=== PATIENT | female | born 1960 | race Caucasian/White ===

== ENCOUNTER → 2016-06-08 | Outpatient (CLI) | payer MEDICARE, OTHER ==
[2016-06-08 09:18] LABS: Basophils % (A) 1 %; CH 30.7; CHCM 30.8; Eosinophils # (A) 0.3 k/uL (0-0.7); Eosinophils % (A) 3 %; HCT 37.8 % (34.0-46.0); HDW 2.79; HGB 11.1 gm/dL (11.4-16.0); Hypochromasia Moderate; Luc # (Auto) 0.23; Luc % (Auto) 3; Lymphocytes # (A) 1.3 k/uL (1.0-4.8); Lymphocytes % (A) 14 %; MCH 29.3 pg (25.0-35.0); MCHC 29.2 g/dL (31.0-37.0); MCV 100.3 fL (80.0-100.0); Macrocytosis Slight; Mean Platelet Volume 8.2; Monocytes # (A) 0.5 k/uL (0-1.0); Monocytes % (A) 5 %; Neutrophils # (A) 6.8 k/uL (1.3-7.7); Neutrophils % (A) 75 %; RBC 3.77 m/uL (3.80-5.40); RDW 14.1 % (11.5-15.5); WBC 9.1 k/uL (3.8-10.6); WBC (Perox) 9.27
[2016-06-08 09:21] LABS: Partial Thromboplastin Time 24.5 sec (22.0-30.0); Prothrombin Time 10.1 sec (9.0-12.0)
--- NOTE | 2016-06-08 09:33 | XR ---
EXAMINATION TYPE: XR chest 2V DATE OF EXAM: 06/08/2016 9:04 AM COMPARISON: 09/03/2013 HISTORY: 56-year-old female presurgical evaluation TECHNIQUE: Frontal and lateral views FINDINGS: The cardiomediastinal silhouette, aorta, and pulmonary vasculature are within normal limits. Lungs an d pleural spaces are clear. IMPRESSION: No acute cardiopulmonary process.
[2016-06-08 09:45] LABS: Calcium 8.5 mg/dL (8.4-10.2); Potassium 5.1 mmol/L (3.5-5.1)
[2016-06-08 09:47] LABS: Appearance,Urine Turbid (Clear); Bacteria,Urine Many /hpf; Bilirubin,Urine Negative (Negative); Glucose,Urine (UA) Negative (Negative); Ketones,Urine Negative (Negative); Leukocyte Esterase,Urine Large (Negative); Mucus,Urine Rare /hpf; Nitrite,Urine Negative (Negative); PH, Urine 5.5 (5.0-8.0); Particle Count 13465; Protein,Urine Trace (Negative); RBC,Urine 6 /hpf (0-5); Specific Gravity,Urine 1.013 (1.001-1.035); Squamous Epithelial Cell,Urine 25 /hpf (0-4); UA Billing (MACRO vs. MICRO) MICRO; Urobilinogen,Urine <2.0 mg/dL (<2.0); WBC,Urine >182 /hpf (0-5)
== END ==
LOC: LABPAT 08:31
PROVIDERS: ATTEND Orthopaedic Surgery Orthopaedic Surgery of the Spine
DX: Z01.818 Encounter for other preprocedural examination (principal); Z01.810 Encounter for preprocedural cardiovascular examination; Z01.812 Encounter for preprocedural laboratory examination
CPT/HCPCS: 71020; 80048; 81001; 85025; 85610; 85730; 86850; 86900; 86901; 87070

== ENCOUNTER 2016-06-17 21:49 | Inpatient (IN) | payer MEDICARE, OTHER ==
[2016-06-17] MEDS ORDERED: ONDANSETRON 4 MG/2 ML VIAL IVP STA (22:16)
[2016-06-17] MEDS ORDERED: DICYCLOMINE 10 MG/ML 2 ML AMP IM STA (22:16)
[2016-06-17] MEDS ORDERED: NICOTINE 21MG/24HR PATCH TRANSDERM STA (22:16)
[2016-06-17] MEDS ORDERED: SODIUM CHLORIDE 0.9% 1,000 ML IV STA ×3 (22:16→23:40)
--- NOTE | 2016-06-17 22:27 | ED ---
Abdominal Pain HPI - General Chief Complaint: Abdominal Pain Stated Complaint: SEIZURE Time Seen by Provider: 06/17/16 21:56 Source: patient, family, EMS Mode of arrival: EMS Limitations: physical limitation - History of Present Illness Initial Comments: The patient is a 56-year-old female who presents to the ED with a chief complaint of abdominal discomfort. Patient states the pain is located in the suprapubic region. Patient also states that there is crampy abdominal pain located throughout the abdomen. Patient notes that she has not had a bowel movement in the past 5-6 days. Patient notes that she's had abdominal bloating. Patient denies any dysuria but states that she has been having increased urinary frequency. Patient states that she had one episode of vomiting yesterday. She denies nausea at this point in time. Patient denies any flank pain. She denies any fevers or chills. She does state that she has felt shaky over the course of the day. She states that her shakiness developed around the same time that she felt abdominal pain. The patient notes that she also quit smoking about 4 days ago. She states she has not had a cigarette since that point in time. Patient states that she has a history of seizure disorder. She states that she's been compliant with all of her medications. Patient states that she takes Keppra for seizures. She states that she has not had any breakthrough seizures for several months. Bill states that she was scheduled to have surgery on her back earlier today but that the surgery was canceled due to the fact the patient has a urinary tract infection. She states that she was started on Levaquin. She's taken one dose of this medications. - Related Data Home Medications Medication Instructions Recorded Confirmed busPIRone HCL [Buspar] 30 mg PO BID 08/23/13 06/17/16 levETIRAcetam [Keppra] 500 mg PO BID 08/23/13 06/17/16 Acetaminophen Tab [Tylenol Tab] 650 mg PO Q6H PRN 06/10/16 06/17/16 Baclofen [Lioresal] 10 mg PO BID PRN 06/10/16 06/17/16 HYDROcodone/APAP 10-325MG [[place] 1 tab PO Q8H PRN 06/10/16 06/17/16 10-325] Lisinopril [Zestril] 20 mg PO DAILY 06/10/16 06/17/16 Pregabalin [Lyrica] 50 mg PO BID PRN 06/10/16 06/17/16 busPIRone HCl [Buspar] 10 mg PO BID 06/10/16 06/17/16 Levofloxacin [Levaquin] 500 mg PO DAILY 06/17/16 06/17/16 Allergies Allergy/AdvReac Type Severity Reaction Status Date / Time Penicillins Allergy Rash/Hives Verified 06/17/16 22:10 Review of Systems ROS Statement: Those systems with pertinent positive or pertinent negative responses have been documented in the HPI. ROS Other: All systems not noted in ROS Statement are negative. Constitutional: Denies: fever, chills, weakness ENT: Denies: throat pain Respiratory: Denies: cough, dyspnea Cardiovascular: Denies: chest pain, palpitations, dyspnea on exertion Endocrine: Denies: fatigue Gastrointestinal: Reports: nausea, vomiting, constipation. Denies: abdominal pain, diarrhea Genitourinary: Reports: frequency. Denies: urgency, dysuria Skin: Denies: rash, lesions, change in color Neurological: Denies: headache, numbness, paresthesias Psychiatric: Denies: anxiety, depression Past Medical History Past Medical History: Hearing Disorder / Deafness, Hypertension, Musculoskeletal Disorder, Neurologic Disorder, Osteoarthritis (OA), Seizure Disorder Additional Past Medical History / Comment(s): seizure disorder diagnosed in April History of Any Multi-Drug Resistant Organisms: None Reported Past Surgical History: Section, Tubal Ligation Past Anesthesia/Blood Transfusion Reactions: No Reported Reaction Past Psychological History: Anxiety, Depression Smoking Status: Current every day smoker Past Alcohol Use History: None Reported Past Drug Use History: Marijuana - Past Family History Mother Family Medical History: No Reported History Additional Family Medical History / Comment(s): . General Exam Limitations: physical limitation Course Vital Signs 06/17/16 06/17/16 06/18/16 22:00 23:27 00:22 Temperature 97.0 F L 96.9 F L 97.4 F L Pulse Rate 78 107 H 69 Respiratory 18 18 18 Rate Blood Pressure 145/65 126/66 139/65 O2 Sat by Pulse 97 99 100 Oximetry 06/18/16 02:02 Temperature 97.7 F Pulse Rate 100 Respiratory 18 Rate Blood Pressure 130/78 O2 Sat by Pulse 100 Oximetry Medical Decision Making - Medical Decision Making The patient is a 56-year-old female who presents to the ED with a chief complaint of abdominal pain. Patient states that the pain is located throughout the abdomen. Patient notes that she has had a decrease in her number of bowel movements. She had one episode of nausea and vomiting last night. Patient does cite increased urinary frequency. She does point to pain in the suprapubic region as well. Check a UA and urine culture. Patient notes that she felt very shaky earlier today. Patient is going through the process of smoking cessation at this point in time. Question whether there may be a component of nicotine withdrawal. Check CBC, BMP, Mag. Bolus patient with IV fluids. Provide patient with Zofran and Bentyl for her symptomatically relief. 2:[address] demonstrates evidence of enlarged left ovary and stranding throughout the omentum suspicious for peritoneal carcinomatosis. Updated patient of findings. Ordered CA 125 level. Patient will require admission for further evaluation and management. - Lab Data Result diagrams: 06/17/16 22:34 06/17/16 22:34 Lab Results 06/17/16 06/17/16 06/17/16 Range/Units 22:13 22:34 22:34 WBC 16.3 H (3.8-10.6) k/uL RBC 3.23 L (3.80-5.40) m/uL Hgb 10.1 L (11.4-16.0) gm/dL Hct 29.4 L (34.0-46.0) % MCV 90.9 D (80.0-100.0) fL MCH 31.3 (25.0-35.0) pg MCHC 34.4 (31.0-37.0) g/dL RDW 13.2 (11.5-15.5) % Plt Count 359 (150-450) k/uL Neutrophils % 90 % Lymphocytes % 4 % Monocytes % 4 % Eosinophils % 0 % Basophils % 0 % Neutrophils # 14.7 H (1.3-7.7) k/uL Lymphocytes # 0.7 L (1.0-4.8) k/uL Monocytes # 0.6 (0-1.0) k/uL Eosinophils # 0.0 (0-0.7) k/uL Basophils # 0.0 (0-0.2) k/uL Sodium 125 L (137-145) mmol/L Potassium 4.7 (3.5-5.1) mmol/L Chloride 92 L (98-107) mmol/L Carbon Dioxide 23 (22-30) mmol/L Anion Gap 10 mmol/L BUN 12 (7-17) mg/dL Creatinine 1.20 H (0.52-1.04) mg/dL Est GFR (MDRD) Af Amer 57 (>60 ml/min/1.73 sqM) Est GFR (MDRD) Non-Af 47 (>60 ml/min/1.73 sqM) Glucose 118 H (74-99) mg/dL Plasma Lactic Acid Nilesh (0.7-2.0) mmol/L Calcium 8.3 L (8.4-10.2) mg/dL Magnesium 1.5 L (1.6-2.3) mg/dL Total Bilirubin 0.4 (0.2-1.3) mg/dL AST 21 (14-36) U/L ALT 22 (9-52) U/L Alkaline Phosphatase 62 (38-126) U/L Total Protein 5.9 L (6.3-8.2) g/dL Albumin 3.1 L (3.5-5.0) g/dL Urine Color Light Yellow Urine Appearance Clear (Clear) Urine pH 5.5 (5.0-8.0) Ur Specific [place] 1.005 (1.001-1.035) Urine Protein Negative (Negative) Urine Glucose (UA) Negative (Negative) Urine Ketones Trace H (Negative) Urine Blood Negative (Negative) Urine Nitrite Negative (Negative) Urine Bilirubin Negative (Negative) Urine Urobilinogen <2.0 (<2.0) mg/dL Ur Leukocyte Esterase Trace H (Negative) Urine RBC <1 (0-5) /hpf Urine WBC 5 (0-5) /hpf Ur Squamous Epith Cells 2 (0-4) /hpf Urine Bacteria Few H (None) /hpf Hyaline Casts 1 (0-2) /lpf 06/17/16 Range/Units 22:34 WBC (3.8-10.6) k/uL RBC (3.80-5.40) m/uL Hgb (11.4-16.0) gm/dL Hct (34.0-46.0) % MCV (80.0-100.0) fL MCH (25.0-35.0) pg MCHC (31.0-37.0) g/dL RDW (11.5-15.5) % Plt Count (150-450) k/uL Neutrophils % % Lymphocytes % % Monocytes % % Eosinophils % % Basophils % % Neutrophils # (1.3-7.7) k/uL Lymphocytes # (1.0-4.8) k/uL Monocytes # (0-1.0) k/uL Eosinophils # (0-0.7) k/uL Basophils # (0-0.2) k/uL Sodium (137-145) mmol/L Potassium (3.5-5.1) mmol/L Chloride (98-107) mmol/L Carbon Dioxide (22-30) mmol/L Anion Gap mmol/L BUN (7-17) mg/dL Creatinine (0.52-1.04) mg/dL Est GFR (MDRD) Af Amer (>60 ml/min/1.73 sqM) Est GFR (MDRD) Non-Af (>60 ml/min/1.73 sqM) Glucose (74-99) mg/dL Plasma Lactic Acid Nilesh 2.7 H* (0.7-2.0) mmol/L Calcium (8.4-10.2) mg/dL Magnesium (1.6-2.3) mg/dL Total Bilirubin (0.2-1.3) mg/dL AST (14-36) U/L ALT (9-52) U/L Alkaline Phosphatase (38-126) U/L Total Protein (6.3-8.2) g/dL Albumin (3.5-5.0) g/dL Urine Color Urine Appearance (Clear) Urine pH (5.0-8.0) Ur Specific [place] (1.001-1.035) Urine Protein (Negative) Urine Glucose (UA) (Negative) Urine Ketones (Negative) Urine Blood (Negative) Urine Nitrite (Negative) Urine Bilirubin (Negative) Urine Urobilinogen (<2.0) mg/dL Ur Leukocyte Esterase (Negative) Urine RBC (0-5) /hpf Urine WBC (0-5) /hpf Ur Squamous Epith Cells (0-4) /hpf Urine Bacteria (None) /hpf Hyaline Casts (0-2) /lpf Disposition Clinical Impression: Ovarian mass, left, Peritoneal carcinomatosis, Lactic acidosis Disposition: ADMITTED IP TO THIS [facility] Decision to Admit Reason: Admit from EC Decision Date: 06/18/16 Decision Time: 02:17
[2016-06-17 23:01] LABS: Basophils % (A) 0 %; CH 31.1; CHCM 34.3; Eosinophils % (A) 0 %; HCT 29.4 % (34.0-46.0); HDW 3.08; HGB 10.1 gm/dL (11.4-16.0); Luc # (Auto) 0.27; Luc % (Auto) 2; Lymphocytes # (A) 0.7 k/uL (1.0-4.8); Lymphocytes % (A) 4 %; MCH 31.3 pg (25.0-35.0); MCHC 34.4 g/dL (31.0-37.0); Mean Platelet Volume 7.6; Monocytes # (A) 0.6 k/uL (0-1.0); Monocytes % (A) 4 %; Neutrophils # (A) 14.7 k/uL (1.3-7.7); Neutrophils % (A) 90 %; RBC 3.23 m/uL (3.80-5.40); RDW 13.2 % (11.5-15.5); WBC 16.3 k/uL (3.8-10.6); WBC (Perox) 16.15
[2016-06-17 23:09] LABS: Appearance,Urine Clear (Clear); Bacteria,Urine Few /hpf; Bilirubin,Urine Negative (Negative); Glucose,Urine (UA) Negative (Negative); Ketones,Urine Trace (Negative); Leukocyte Esterase,Urine Trace (Negative); Nitrite,Urine Negative (Negative); PH, Urine 5.5 (5.0-8.0); Particle Count 1750; Protein,Urine Negative (Negative); RBC,Urine <1 /hpf (0-5); Specific Gravity,Urine 1.005 (1.001-1.035); Squamous Epithelial Cell,Urine 2 /hpf (0-4); UA Billing (MACRO vs. MICRO) MICRO; Urobilinogen,Urine <2.0 mg/dL (<2.0); WBC,Urine 5 /hpf (0-5)
[2016-06-17 23:13] LABS: MCV 90.9 fL (80.0-100.0)
--- NOTE | 2016-06-17 23:14 | XR ---
EXAMINATION TYPE: XR abdomen acute w cxr DATE OF EXAM: 06/17/2016 11:05 PM COMPARISON: NONE HISTORY: Abdominal pain TECHNIQUE: 4 views FINDINGS: Lungs are clear. Heart and mediastinum are normal. Diaphragm is normal. Bowel gas pattern is normal. There is no sign of intestinal obstruction or pneumoperitoneum. There is no sign of a mass. There is a 2 mm calcification over the left kidney on one view. IMPRESSION: Nonacute abdomen. Normal chest.
[2016-06-17 23:17] LABS: Calcium 8.3 mg/dL (8.4-10.2); Magnesium 1.5 mg/dL (1.6-2.3); Potassium 4.7 mmol/L (3.5-5.1); Total Bilirubin 0.4 mg/dL (0.2-1.3); Total Protein 5.9 g/dL (6.3-8.2)
[2016-06-17] MEDS ORDERED: IOHEXOL 350 MG/ML 25 ML BOTTLE (ORAL USE) PO PRN (23:43)
[2016-06-17] MEDS ORDERED: RX INFO: IV CONTRAST WAS GIVEN 1 EACH MISC MISCELLANE PRN (23:43)
[2016-06-18] MEDS: MAGNESIUM SULFATE-D5W PMX 1 GM in DEXTROSE/WATER 1 100ML.BAG IVPB SCH ×2 (00:15→01:53)
[2016-06-18] MEDS ORDERED: MORPHINE SULFATE 4 MG/ML SYRINGE IVP STA (00:31)
--- NOTE | 2016-06-18 02:08 | CT ---
EXAM: CT Abdomen and Pelvis With Intravenous Contrast. CLINICAL HISTORY: Reason: Abdominal pain TECHNIQUE: Axial computed tomography images of the abdomen and pelvis with intravenous contrast. CTDI is 12.6 mGy and DLP is 594.7 mGy-cm This CT exam was performed using one or more of the following dose reduction techniques: automated exposure control, adjustment of the mA and/or kV according to patient size, and/or use of iterative reconstruction technique. COMPARISON: No relevant prior studies available. FINDINGS: Lower thorax: No acute findings. ABDOMEN: Liver: Unremarkable. No mass. Gallbladder and bile ducts: 19 mm peripherally calcified gallstone. No apparent gallbladder wall thickening. No ductal dilation. Pancreas: Unremarkable. No ductal dilation. No mass. Spleen: Unremarkable. No splenomegaly. Adrenals: Unremarkable. No mass. Kidneys and ureters: Atrophic left kidney. No evidence of obstructive uropathy. PELVIS: Bladder: Unremarkable. No mass. Reproductive: Indeterminate well-circumscribed mass within the left ovary measuring 4.2 x 3.8 cm in size. Appendix: No findings to suggest acute appendicitis. ABDOMEN + PELVIS: Stomach and bowel: Unremarkable. No obstruction. No mucosal thickening. Peritoneum: Small to moderate volume ascites. Moderate soft tissue stranding is seen within the greater omentum. No free air. Lymph nodes: Unremarkable. No enlarged lymph nodes. Vasculature: Unremarkable. No aortic aneurysm. Bones: No acute fracture. IMPRESSION: 1. Small to moderate volume ascites. Moderate soft tissue stranding of the greater omentum is worrisome for underlying peritoneal carcinomatosis. 2. Cholelithiasis, without definitive findings of acute cholecystitis. 3. Atrophic left kidney. 4. Indeterminate 4.2 x 3.8 cm well-circumscribed left ovarian mass. This can be further characterized with dedicated pelvic ultrasound.
[2016-06-18] MEDS ORDERED: NALOXONE 0.4 MG/ML 1 ML VIAL IV PRN (02:18)
[2016-06-18] MEDS ORDERED: HYDROcodone/APAP 5-325MG 1 EACH TAB PO PRN (02:18)
[2016-06-18] MEDS ORDERED: ONDANSETRON 4 MG/2 ML VIAL IVP PRN (02:18)
[2016-06-18] MEDS: MORPHINE SULFATE 4 MG/ML SYRINGE IV PRN ×3 (03:01→11:10)
[2016-06-18] MEDS: ALPRAZolam 0.25 MG TAB PO SCH ×2 (08:46→12:48)
[2016-06-18] MEDS ORDERED: PREGABALIN 50 MG CAP PO PRN (09:10)
[2016-06-18] MEDS ORDERED: busPIRone HCl 10 MG TAB PO SCH ×2 (09:15)
[2016-06-18] MEDS: LISINOPRIL 20 MG TAB PO SCH (10:05)
[2016-06-18] MEDS: levETIRAcetam 500 MG TAB PO SCH ×2 (10:05→19:54)
[2016-06-18] MEDS: LORazepam 2 MG/ML SYRINGE IV PRN ×2 (14:50→18:43)
[2016-06-18] MEDS ORDERED: TEMAZEPAM 15 MG CAP PO PRN (15:44)
[2016-06-18] MEDS ORDERED: BACLOFEN 10 MG TAB PO PRN (15:45)
--- NOTE | 2016-06-18 16:21 | XR ---
EXAMINATION TYPE: XR chest 1V DATE OF EXAM: 06/18/2016 4:11 PM COMPARISON: 06/08/2016 HISTORY: 56-year-old female with shortness of breath, evaluate for CHF TECHNIQUE: Single frontal view of the chest is obtained. FINDINGS: Heart is normal size. Aorta and pulmonary vasculature within normal limits. Some opacity is at the lo wer lungs have a strandy appearance suggesting atelectasis. No consolidation or pleural effusion. IMPRESSION: Some strandy areas of atelectasis in the lower lungs. Otherwise, no acute process seen.
--- NOTE | 2016-06-18 19:31 | CT ---
EXAMINATION TYPE: CT brain wo con DATE OF EXAM: 06/18/2016 7:25 PM COMPARISON: 08/23/2013 HISTORY: R/O mets. CT DLP: 1001.3 mGycm Automated exposure control for dose reduction was used. FINDINGS: There is mild cerebral atrophy. There is no mass effect nor midline shift. There is no sign of intrac ranial hemorrhage. I see no sign of cerebral edema. The calvarium is intact. IMPRESSION: Mild atrophy. No acute intracranial abnormality. No evidence of focal edema to suggest metastatic dis ease. No significant change compared to old exam.
--- NOTE | 2016-06-18 19:35 | CT ---
EXAMINATION TYPE: CT chest wo con DATE OF EXAM: 06/18/2016 7:25 PM COMPARISON: NONE HISTORY: R/O mets. CT DLP: 299.4 mGycm Automated exposure control for dose reduction was used. FINDINGS: There is a small linear density in the lingula left upper lobe. There is no evidence of a pulmonary m ass. There is no pleural effusion. There are no hilar masses. There is no sign of mediastinal adenopa thy. There is no pericardial effusion. There is ascites fluid noted in the abdomen. I see no bony luz tructive process. IMPRESSION: MINIMAL SUBSEGMENTAL ATELECTASIS IN THE [place]A LEFT UPPER LOBE. NO EVIDENCE OF THORACIC METASTATIC D ISEASE. ASCITES.
[2016-06-18] MEDS: HYDROmorphone 1 MG/ML 1 ML SYRINGE IVP PRN ×2 (19:44→22:37)
--- NOTE | 2016-06-18 19:48 | HP ---
DATE OF ADMISSION: 06/18/2016 CHIEF COMPLAINT: Abdominal pain. HISTORY OF PRESENT ILLNESS: This 56-year-old woman with a past medical history of hypertension, history of DJD, history of renal disease, history of seizure disorder, history of anxiety, depression, being followed by Dr. Vilchis in the outpatient setting, was apparently slated to have back surgery by Dr. Figueredo for severe DJD. Yesterday the patient had evidence of UTI. Surgery was cancelled, and subsequently patient had severe pain in the suprapubic area and also was complaining of abdominal bloating. Patient has some nausea. She had multiple symptomatology. Patient has some shaking also. Because of multiple symptomatology, the patient came to [facility] and was admitted for further evaluation and treatment. There is no history of any fever, no history of headache, loss of consciousness, seizures. In the ER the patient was found to have evidence of plasma lactic acid, and her sodium level was 125. CA125 antigen was 1440. Patient also had an abdomen and pelvis CT scan in the ER which showed small to moderate volume ascites and moderate soft tissue stranding of the greater omentum, worrisome for underlying peritoneal carcinomatosis and cholelithiasis as well as indeterminate 4.2 x 3.8 cm well-circumscribed left ovarian mass. The patient is admitted for further evaluation and treatment. There is no history of any trauma. PAST MEDICAL HISTORY: 1. History of hypertension, essential. 2. History of renal disease. 3. History of seizure disorder. 4. History of anxiety, depression. 5. History of section. MEDICATIONS PRIOR TO ADMISSION: 1. Keppra 500 mg p.o. b.i.d. 2. BuSpar 10 mg p.o. b.i.d. 3. BuSpar 30 mg p.o. b.i.d. 4. Lyrica 50 mg p.o. b.i.d. p.r.n. 5. Zestril 20 mg p.o. daily. 6. Levaquin 500 mg p.o. daily. 7. Hydrocodone [place] 10 mg q.8 p.r.n. 8. Lioresal 10 mg b.i.d. p.r.n. 9. Tylenol 650 p.o. q.6 p.r.n. ALLERGIES: PENICILLIN. FAMILY HISTORY: No history of heart disease or strokes in the family. SOCIAL HISTORY: Previous history of smoking. No current smoking or alcohol intake. REVIEW OF SYSTEMS: ENT: No diminishing hearing. No diminished vision. CARDIOVASCULAR SYSTEM: No angina, palpitations. RESPIRATORY SYSTEM: As mentioned earlier. GI: As mentioned earlier. : No dysuria. NERVOUS SYSTEM: No numbness, weakness. ALLERGY/IMMUNOLOGY: No asthma, hayfever. MUSCULOSKELETAL: As mentioned earlier. HEMATOLOGY/ONCOLOGY: As mentioned earlier. ENDOCRINE: As mentioned earlier. CONSTITUTIONAL: As mentioned earlier. PSYCHIATRY: Panic attacks. PHYSICAL EXAMINATION: Patient is alert and oriented x3. Pulse 110, blood pressure 146/99, respiration 22, temperature 98.1, pulse ox 98% on room air. HEENT: Conjunctivae normal. NECK: No jugular venous distention. CARDIOVASCULAR SYSTEM: S1, S2 muffled. RESPIRATORY SYSTEM: Breath sounds diminished at the bases. Scattered rhonchi. No crackles. ABDOMEN: Soft. Mild diffuse distention and ascites present. No guarding. No rigidity. Tenderness in the lower part of the abdomen. Bowel sounds present. LEGS: No edema. No swelling. NERVOUS SYSTEM: Higher functions as mentioned earlier. Moves all 4 limbs. No focal motor or sensory deficit. LYMPHATICS: No lymph node palpable in neck, axillae or groin. SKIN: No ulcer, rash, bleeding. LABS: WBC 16.2, hemoglobin 10.1. Sodium 125, potassium 4.7. Plasma lactic acid 2.7. CA125 is 1440. ASSESSMENT: 1. Abdominal pain, ascites, as well as possible left ovarian mass with peritoneal carcinomatosis. 2. Acute lactic acidosis, present on admission, possibly secondary to dehydration. 3. Urinary tract infection. 4. Lactic acid 2.7. 5. CA125 antigen 1440. 6. Hyponatremia. 7. Anemia, normocytic; anemia of chronic disease. 8. Increased white count. 9. History of hypertension, essential. 10. History of hearing defects. 11. History of renal disease. 12. History of degenerative joint disease. 13. History of seizure disorder. 14. degenerative joint disease of the back. 15. Anxiety, depression not otherwise specified. 16. Remote history of nicotine dependence. RECOMMENDATIONS AND DISCUSSION: In this 56-year-old woman who presented with multiple complex medical issues, we will monitor the patient closely, continue the current medication, continue symptomatic treatment. I recommend initiating broad-spectrum IV antibiotics. Continue the IV hydration. Otherwise, symptomatic treatment for the pain. Ativan for panic attacks. Discussed with Hematology/Oncology. Also recommend abdominal aspiration of ascitic fluid, therapeutic and diagnostic, with further studies with Interventional Radiology. Overall prognosis is extremely guarded because of multiple complex medical issues. Further recommendations to follow. Discussed with the patient. I also recommend a surgical evaluation. MTDD
[2016-06-18] MEDS: busPIRone HCl 10 MG TAB PO SCH (19:55)
[2016-06-19] MEDS: ALPRAZolam 0.25 MG TAB PO SCH ×3 (00:05→15:26)
[2016-06-19] MEDS: HYDROmorphone 1 MG/ML 1 ML SYRINGE IVP PRN ×6 (02:52→22:00)
[2016-06-19] MEDS: HYDROcodone/APAP 10-325MG 1 EACH TAB PO PRN (04:09)
[2016-06-19 07:28] LABS: Basophils % (A) 0 %; CHCM 31.8; Eosinophils # (A) 0.1 k/uL (0-0.7); Eosinophils % (A) 0 %; HCT 31.4 % (34.0-46.0); HDW 2.94; HGB 9.9 gm/dL (11.4-16.0); Hypochromasia Slight; Luc # (Auto) 0.23; Luc % (Auto) 2; Lymphocytes # (A) 0.9 k/uL (1.0-4.8); Lymphocytes % (A) 8 %; MCH 29.9 pg (25.0-35.0); MCHC 31.6 g/dL (31.0-37.0); MCV 94.7 fL (80.0-100.0); Mean Platelet Volume 7.4; Monocytes # (A) 0.5 k/uL (0-1.0); Monocytes % (A) 4 %; Neutrophils # (A) 10.4 k/uL (1.3-7.7); Neutrophils % (A) 86 %; RBC 3.32 m/uL (3.80-5.40); RDW 13.6 % (11.5-15.5); WBC 12.1 k/uL (3.8-10.6)
[2016-06-19 07:34] LABS: INR 1.1 (<1.1); Prothrombin Time 10.7 sec (9.0-12.0)
[2016-06-19 07:43] LABS: Calcium 8.4 mg/dL (8.4-10.2); Magnesium 2.3 mg/dL (1.6-2.3); Phosphorous 4.1 mg/dL (2.5-4.5); Total Bilirubin 0.4 mg/dL (0.2-1.3); Total Protein 5.6 g/dL (6.3-8.2)
[2016-06-19] MEDS: PANTOPRAZOLE 40 MG TABLET PO SCH (08:38)
[2016-06-19] MEDS: LISINOPRIL 20 MG TAB PO SCH (08:38)
[2016-06-19] MEDS: busPIRone HCl 10 MG TAB PO SCH ×2 (08:39→21:27)
[2016-06-19] MEDS: levETIRAcetam 500 MG TAB PO SCH ×2 (08:39→21:28)
[2016-06-19 13:12] VITALS: BMI 27.2
--- NOTE | 2016-06-19 17:16 | US ---
EXAMINATION TYPE: US paracentesis abd w/image DATE OF EXAM: 06/19/2016 4:51 PM COMPARISON: NONE HISTORY: Ascites. PROCEDURE: Maximal barrier technique was utilized. The skin overlying a suitable pocket of fluid was localized with ultrasound and the overlying skin was prepped and draped. Ultrasound was utilized with sterile technique. Lidocaine was used for local anesthesia and a skin joana made with a scalpel. Catheter was advanced under direct ultrasound guidance into a suitable pocket of fluid and approximately 2 liters of serous fluid were removed. Catheter was withdrawn and hemostasis achieved. There is no immediate complication; the patient is discharged in stable condition. IMPRESSION: STATUS POST ULTRASOUND GUIDED PARACENTESIS FOR PALLIATION OF ASCITES. THIS PROCEDURE WA S PERFORMED BY THE UNDERSIGNED. Specimen obtained for laboratory analysis.
--- NOTE | 2016-06-19 17:54 | P.CONS ---
History of Present Illness - Reason for Consult Consult date: 06/19/16 Ascites and pelvic mass - History of Present Illness The patient is a 56-year-old lady, who is been having complains of abdominal distention with progressive discomfort over the last couple of weeks. She had not had a bowel movement in the last 5-6 days. Over the 24 hours prior to her presentation here, she had been complaining of chills though no definite fevers. It appears that she may have had a diagnosis of UTI. Due to the progression of the abdominal symptoms, as well as the additional symptoms noted above, she came into the emergency room. She also complained of some nausea though no evident vomiting. CT of the abdomen and pelvis revealed evidence of ascites, with soft tissue stranding of the greater omentum, suspicious for peritoneal carcinomatosis. In addition there was a 4.23.8 cm well- circumscribed left pelvic mass noted. The patient was therefore admitted for further management. Consult was placed for oncology evaluation and recommendations The patient states that she had surgery after , about 20 years ago and " they took everything out". On further questioning, however, she was unable to state if ovaries had been left in or not Review of Systems Constitutional: Reports fatigue, Reports poor appetite, Reports weakness, Reports weight loss Eyes: denies blurred vision, denies pain Ears: deny: decreased hearing, ear discharge, earache, tinnitus Ears, nose, mouth and throat: Denies headache, Denies sore throat Cardiovascular: Reports decreased exercise tolerance Respiratory: Reports dyspnea Gastrointestinal: Reports as per HPI, Reports abdominal pain, Reports bloating, Reports constipation, Reports nausea Genitourinary: Denies dysuria, Denies hematuria Menstruation: Reports postmenopausal Musculoskeletal: Denies myalgias Integumentary: Denies pruritus, Denies rash Neurological: Reports tremors Psychiatric: Reports anxiety Endocrine: Reports fatigue, Reports weight change Hematologic/Lymphatic: Reports as per HPI Past Medical History Past Medical History: Eye Disorder, Hearing Disorder / Deafness, Hypertension, Osteoarthritis (OA), Renal Disease, Seizure Disorder Additional Past Medical History / Comment(s): Last seizure summer 2015 per pt, current UTI on ABX, chronic low back pain (was supposed to have sx today but cancelled d/t UTI), generalized arthritis, renal insufficiency, chronic anemia, glaucoma bilaterally with surgery, [place] bilaterally. History of Any Multi-Drug Resistant Organisms: None Reported Past Surgical History: Section, Tonsillectomy, Tubal Ligation Additional Past Surgical History / Comment(s): Buttock abcess with surgery, lasek eye surgery bilaterally for glaucoma. Past Anesthesia/Blood Transfusion Reactions: No Reported Reaction Past Psychological History: Anxiety, Depression Additional Psychological History / Comment(s): Pt has severe anxiety. She resides with her significant other and her 16yr old daughter. She has a cane and a walker. She no longer drives, her s.o. takes her to [employer]. She attended special education while in school. She can read and write, minimally. Smoking Status: Former smoker Past Alcohol Use History: None Reported Additional Past Alcohol Use History / Comment(s): Pt started smoking in 1976 and states she quit 4 days ago. Past Drug Use History: Marijuana Additional Drug Use History / Comment(s): Occasional marijuana use. - Past Family History Father Family Medical History: CVA/TIA, Diabetes Mellitus, Hypertension Additional Family Medical History / Comment(s): Father at the age of 65yrs. Mother Family Medical History: No Reported History Additional Family Medical History / Comment(s): . Medications and Allergies Home Medications Medication Instructions Recorded Confirmed Type busPIRone HCL [Buspar] 30 mg PO BID 08/23/13 06/18/16 History levETIRAcetam [Keppra] 500 mg PO BID 08/23/13 06/18/16 History Acetaminophen Tab [Tylenol Tab] 650 mg PO Q6H PRN 06/10/16 06/18/16 History Baclofen [Lioresal] 10 mg PO BID PRN 06/10/16 06/18/16 History HYDROcodone/APAP 10-325MG [[place] 1 tab PO Q8H PRN 06/10/16 06/18/16 History 10-325] Lisinopril [Zestril] 20 mg PO DAILY 06/10/16 06/18/16 History Pregabalin [Lyrica] 50 mg PO BID PRN 06/10/16 06/18/16 History busPIRone HCl [Buspar] 10 mg PO BID 06/10/16 06/18/16 History Levofloxacin [Levaquin] 500 mg PO DAILY 06/17/16 06/18/16 History Allergies Allergy/AdvReac Type Severity Reaction Status Date / Time Penicillins Allergy Rash/Hives Verified 06/18/16 10:47 Physical Exam Vitals: Vital Signs Temp Pulse Resp BP Pulse Ox 06/19/16 17:20 96 18 135/74 99 06/19/16 17:05 97.1 F L 88 19 119/64 99 06/19/16 16:31 86 16 105/63 96 06/19/16 15:57 86 18 112/63 96 06/19/16 15:45 97.8 F 80 19 97 06/19/16 11:00 98.8 F 79 20 86/36 100 06/19/16 08:01 93 20 133/77 98 06/19/16 08:00 98.5 F 06/19/16 00:00 97.7 F 74 18 127/69 97 06/18/16 20:00 98.3 F 112 H 20 156/97 95 Intake and Output 06/19/16 06/19/16 06/19/16 06:59 14:59 22:59 Intake Total 750 Output Total 3 Balance 750 -3 Intake: Intake, IV Titration 750 Amount Sodium Chloride 0.9% 1, 750 000 ml @ 100 mls/hr IV . Q10H STA Rx#:[id number] Output: Urine 3 Other: # Voids 1 # Bowel Movements 1 2 Weight 61.235 kg Patient Weight 06/20/16 06:59 Weight 61.235 kg - Constitutional General appearance: mild distress (Very anxious and shaky) - EENT Eyes: EOMI ENT: hard of hearing, normal oropharynx - Neck Neck: no lymphadenopathy Thyroid: bilateral: normal size - Respiratory Respiratory: bilateral: CTA - Cardiovascular Rhythm: regular Heart sounds: normal: S1, S2 - Gastrointestinal Exam is positive for free fluid General gastrointestinal: decreased bowel sounds, distended - Integumentary Integumentary: normal - Neurologic Neurologic: CNII-XII intact - Musculoskeletal Musculoskeletal: generalized weakness, strength equal bilaterally - Psychiatric Psychiatric: A&O x's 3, appropriate affect Results CBC & Chem 7: 06/19/16 06:28 06/19/16 06:28 Labs: Abnormal Lab Results - Last 24 Hours (Table) 06/19/16 06/19/16 Range/Units 06:28 06:28 WBC 12.1 H (3.8-10.6) k/uL RBC 3.32 L (3.80-5.40) m/uL Hgb 9.9 L (11.4-16.0) gm/dL Hct 31.4 L (34.0-46.0) % Neutrophils # 10.4 H (1.3-7.7) k/uL Lymphocytes # 0.9 L (1.0-4.8) k/uL Chloride 111 H (98-107) mmol/L Carbon Dioxide 19 L (22-30) mmol/L Creatinine 1.15 H (0.52-1.04) mg/dL Total Protein 5.6 L (6.3-8.2) g/dL Albumin 2.8 L (3.5-5.0) g/dL CT scan - abdomen: report reviewed, image reviewed CT scan - chest: report reviewed CT Scan - head: report reviewed CT scan - pelvis: report reviewed, image reviewed Assessment and Plan (1) Peritoneal carcinomatosis Narrative/Plan: The clinical picture, is very suspicious for malignant ascites with peritoneal carcinomatosis. CA-125 is markedly elevated at 1440. This is most suspicious for an ovarian primary, although other primaries with metastasis to the peritoneum cannot be ruled out The above clinical impression was discussed in detail with the patient and her . A paracentesis is being planned. It was discussed with the patient that this is recommended, for therapeutic and diagnostic purposes. Appropriate the labs, including cytology were ordered on the ascites fluid. We will await those results. Computed tomography scan of the chest has already been performed, showing no evidence of metastasis. Status: Acute (2) Ovarian mass, left Narrative/Plan: This is presumed to be an ovarian mass, and in the current context, is the main differential for the primary site. As noted in the HPI, the patient did give a history of INSURANCE LAW SPECIALIST surgery, that is not clear if ovaries were removed. We will await results of the cytology. As noted, a CT chest is negative for metastasis. CT of the abdomen and pelvis does not show any evidence of visceral metastasis . Therefore, if the patient is found to have ovarian malignancy on sciatic fluid cytology, she would be treated with curative intent , with the radical surgery and chemotherapy. In that case, INSURANCE LAW SPECIALIST oncology referral will be arranged Status: Acute (3) Anemia Narrative/Plan: Given the clinical picture, anemia due to malignancy is a primary differential. I will check workup for deficiency states. Hemoglobin is in a safe range. Status: Acute
[2016-06-19 18:45] LABS: % Iron Saturation 12.1 % (20-50)
--- NOTE | 2016-06-19 18:46 | P.OBCN ---
History of Present Illness Consult date: 06/19/16 Reason for consult: pelvic pain Chief complaint: Pelvic pain, ovarian mass, ascites History of present illness: This patient is a 56-year-old 4 para 1 female who is admitted through the emergency department approximately 2 days ago with complaints of pelvic pain. Patient is a very poor historian, but states that she's been having lower abdominal pain for several months. She states that she's had constipation and had multiple tests done for this. Patient's associate financial representative is Dr. Paz however has not seen him in approximately 3 years. Patient was seen Dr. Vilchis and she is unsure of what type of evaluation she's had prior to this admission. Evaluation here included a CAT scan which showed ascites with a 4.2 cm left ovarian mass and probable peritoneal carcinomatosis. Patient also had a CA-125 done which was 1440. Paracentesis for 2 L of fluid was done earlier today and those results are pending. Review of Systems Gastrointestinal: Reports constipation Genitourinary: Reports pelvic pain Past Medical History Past Medical History: Eye Disorder, Hearing Disorder / Deafness, Hypertension, Osteoarthritis (OA), Renal Disease, Seizure Disorder Additional Past Medical History / Comment(s): Last seizure summer 2015 per pt, current UTI on ABX, chronic low back pain (was supposed to have sx today but cancelled d/t UTI), generalized arthritis, renal insufficiency, chronic anemia, glaucoma bilaterally with surgery, [place] bilaterally. Gynecologic history is significant for section and laparoscopy in the past with lysis of adhesions and cystectomy. Last Pap smear was per Dr. Rossi in January 2012 and was normal. History of Any Multi-Drug Resistant Organisms: None Reported Past Surgical History: Section, Tonsillectomy, Tubal Ligation Additional Past Surgical History / Comment(s): Buttock abcess with surgery, lasek eye surgery bilaterally for glaucoma. Past Anesthesia/Blood Transfusion Reactions: No Reported Reaction Past Psychological History: Anxiety, Depression Additional Psychological History / Comment(s): Pt has severe anxiety. She resides with her significant other and her 16yr old daughter. She has a cane and a walker. She no longer drives, her s.o. takes her to appts. She attended special education while in school. She can read and write, minimally. Smoking Status: Former smoker Past Alcohol Use History: None Reported Additional Past Alcohol Use History / Comment(s): Pt started smoking in 1976 and states she quit 4 days ago. Past Drug Use History: Marijuana Additional Drug Use History / Comment(s): Occasional marijuana use. - Past Family History Father Family Medical History: CVA/TIA, Diabetes Mellitus, Hypertension Additional Family Medical History / Comment(s): Father at the age of 65yrs. Mother Family Medical History: No Reported History Additional Family Medical History / Comment(s): . Medications and Allergies Home Medications Medication Instructions Recorded Confirmed Type busPIRone HCL [Buspar] 30 mg PO BID 08/23/13 06/18/16 History levETIRAcetam [Keppra] 500 mg PO BID 08/23/13 06/18/16 History Acetaminophen Tab [Tylenol Tab] 650 mg PO Q6H PRN 06/10/16 06/18/16 History Baclofen [Lioresal] 10 mg PO BID PRN 06/10/16 06/18/16 History HYDROcodone/APAP 10-325MG [[place] 1 tab PO Q8H PRN 06/10/16 06/18/16 History 10-325] Lisinopril [Zestril] 20 mg PO DAILY 06/10/16 06/18/16 History Pregabalin [Lyrica] 50 mg PO BID PRN 06/10/16 06/18/16 History busPIRone HCl [Buspar] 10 mg PO BID 06/10/16 06/18/16 History Levofloxacin [Levaquin] 500 mg PO DAILY 06/17/16 06/18/16 History Allergies Allergy/AdvReac Type Severity Reaction Status Date / Time Penicillins Allergy Rash/Hives Verified 06/18/16 10:47 Exam - Vital Signs Vital signs: Vital Signs Temp Pulse Resp BP Pulse Ox 06/19/16 17:35 96 18 126/55 99 06/19/16 17:20 96 18 135/74 99 06/19/16 17:05 97.1 F L 88 19 119/64 99 06/19/16 16:31 86 16 105/63 96 06/19/16 15:57 86 18 112/63 96 06/19/16 15:45 97.8 F 80 19 97 06/19/16 11:00 98.8 F 79 20 86/36 100 06/19/16 08:01 93 20 133/77 98 06/19/16 08:00 98.5 F 06/19/16 00:00 97.7 F 74 18 127/69 97 06/18/16 20:00 98.3 F 112 H 20 156/97 95 Intake and Output 06/19/16 06/19/16 06/19/16 06:59 14:59 22:59 Intake Total 750 Output Total 3 Balance 750 -3 Intake: Intake, IV Titration 750 Amount Sodium Chloride 0.9% 1, 750 000 ml @ 100 mls/hr IV . Q10H STA Rx#:[id number] Output: Urine 3 Other: # Voids 1 # Bowel Movements 1 2 Weight 61.235 kg Patient Weight 06/20/16 06:59 Weight 61.235 kg Results Result Diagrams: 06/19/16 06:28 06/19/16 06:28 Abnormal Lab Results - Last 24 Hours (Table) 06/19/16 06/19/16 Range/Units 06:28 06:28 WBC 12.1 H (3.8-10.6) k/uL RBC 3.32 L (3.80-5.40) m/uL Hgb 9.9 L (11.4-16.0) gm/dL Hct 31.4 L (34.0-46.0) % Neutrophils # 10.4 H (1.3-7.7) k/uL Lymphocytes # 0.9 L (1.0-4.8) k/uL Chloride 111 H (98-107) mmol/L Carbon Dioxide 19 L (22-30) mmol/L Creatinine 1.15 H (0.52-1.04) mg/dL Total Protein 5.6 L (6.3-8.2) g/dL Albumin 2.8 L (3.5-5.0) g/dL Assessment and Plan (1) Pelvic pain Narrative/Plan: This is a 56-year-old 4 para 1 female with several month history of pelvic pain, evaluation thus far has revealed a ovarian mass, large ascites and what appears to be peritoneal carcinomatosis. This most likely is suspicious for an epithelial ovarian cancer. Current recommendations are to proceed with evaluation and treatment by CHORE TENDER oncologist. My recommendations are to transfer this patient to a CHORE TENDER oncology facility for surgical staging and further treatment. Status: Acute (2) Ovarian mass Status: Acute
--- NOTE | 2016-06-19 19:36 | PN ---
DATE OF SERVICE: 06/19/2016 This 56-year-old woman was admitted with abdominal distention as well as pain and ascites as well as suspected to have left ovarian mass. The patient also had cholelithiasis and without any definite evidence of cholecystitis. The patient also had atrophic left kidney. The patient is being closely monitored. Ascitic tap is being planned by [facility]. PAST MEDICAL HISTORY: Reviewed. REVIEW OF SYSTEMS: CARDIOVASCULAR: No angina or palpitations. RESPIRATORY: As mentioned earlier. GI: As mentioned earlier. : As mentioned earlier. Current medications are reviewed and include: 1. [place] 10 mg q.8 p.r.n. 2. Xanax 0.5 q.8. 3. Lioresal 10 mg b.i.d. p.r.n. 4. BuSpar 40 mg b.i.d. 5. Rocephin 1 g daily. 6. Dilaudid. 7. Keppra 500 mg. 8. Zestril. 9. Ativan. 10. Narcan. 11. Zofran. 12. Protonix. 13. Lyrica. PHYSICAL EXAM: Patient alert and oriented x3. Pulse 86, blood pressure 112/96, respirations 18, temperature 97.8, pulse ox 96% on room air. HEENT: Conjunctivae normal. NECK: No jugular venous distension. CARDIOVASCULAR: S1 and S2 muffled. RESPIRATORY: Breath sounds diminished in the bases. A few scattered rhonchi and crackles. ABDOMEN: Soft, obese. Ascites present. LEGS: No edema. NERVOUS SYSTEM: No focal deficits. LABS: WBC 12.0, hemoglobin is 9.9. Sodium 138, potassium 5. Albumin is 2.8. ASSESSMENT: 1. Abdominal pain, ascites, as well as possible left ovarian mass with ovarian malignancy with possible peritoneal carcinomatosis. 2. Acute lactic acidosis, present on admission, possibly secondary to dehydration. 3. Urinary tract infection. 4. Lactic acid 2.7% on admission. 5. CA-125 antigen at 1440. 6. Hyponatremia. 7. Anxiety, depression and panic attacks. 8. Anemia, normocytic; anemia of chronic disease. 9. Increased WBC. 10. Hypertension, essential. 11. History of hearing defects. 12. History of renal disease. 13. History degenerative joint disease. 14. Seizure disorder. 15. Remote history of nicotine dependence. 16. FULL CODE. RECOMMENDATIONS AND DISCUSSION: In this 56-year-old woman who presented with multiple complex medical issues, will monitor the patient closely, continue with the current medications. Continue with symptomatic treatment. Otherwise, at this time recommend Interventional Radiology consultation, ascitic fluid aspiration, fluid for studies including culture, albumin, cytology. Otherwise, MANAGER DIGITAL evaluation with Dr. Jc. Otherwise, prognosis is guarded because of multiple complex medical issues. See orders for further details. Repeat labs will be done. Further recommendations to follow. Lactic acid has normalized. Discussed with the patient, who understands and agrees.
[2016-06-19] MEDS: DOCUSATE 100 MG CAP PO SCH (21:26)
[2016-06-20] MEDS: ALPRAZolam 0.25 MG TAB PO SCH ×3 (01:27→15:34)
[2016-06-20] MEDS: HYDROmorphone 1 MG/ML 1 ML SYRINGE IVP PRN ×4 (01:28→14:41)
[2016-06-20 05:55] LABS: Basophils % (A) 0 %; CH 30.4; CHCM 32.2; Eosinophils # (A) 0.1 k/uL (0-0.7); Eosinophils % (A) 1 %; HCT 30.4 % (34.0-46.0); HDW 3.05; Hypochromasia Slight; Luc # (Auto) 0.27; Luc % (Auto) 3; Lymphocytes % (A) 9 %; MCH 31.3 pg (25.0-35.0); MCHC 33.1 g/dL (31.0-37.0); MCV 94.7 fL (80.0-100.0); Mean Platelet Volume 7.3; Monocytes # (A) 0.6 k/uL (0-1.0); Monocytes % (A) 5 %; Neutrophils # (A) 8.9 k/uL (1.3-7.7); Neutrophils % (A) 83 %; RBC 3.21 m/uL (3.80-5.40); RDW 13.5 % (11.5-15.5); WBC 10.8 k/uL (3.8-10.6); WBC (Perox) 10.65
[2016-06-20 06:10] LABS: Calcium 7.9 mg/dL (8.4-10.2); Potassium 4.7 mmol/L (3.5-5.1)
[2016-06-20 06:33] LABS: Reticulocyte % 1.9 % (0.5-2.0)
[2016-06-20] MEDS: SODIUM CHLORIDE 0.9% 1,000 ML IV SCH (07:00)
[2016-06-20] MEDS: HYDROcodone/APAP 10-325MG 1 EACH TAB PO PRN ×2 (07:21→19:24)
[2016-06-20] MEDS: PANTOPRAZOLE 40 MG TABLET PO SCH (07:21)
[2016-06-20] MEDS: busPIRone HCl 10 MG TAB PO SCH ×2 (08:50→21:02)
[2016-06-20] MEDS: DOCUSATE 100 MG CAP PO SCH ×2 (08:52→21:06)
[2016-06-20] MEDS: levETIRAcetam 500 MG TAB PO SCH ×2 (08:54→21:02)
[2016-06-20] MEDS: LISINOPRIL 20 MG TAB PO SCH (08:54)
[2016-06-20 13:02] LABS: LDH, Body Fluid Source Peritoneal Fluid; T. Protein, Body Fluid Source Peritoneal Fluid; Total Protein, Body Fluid 4000 mg/dL
[2016-06-20 13:54] LABS: Phosphorous 3.8 mg/dL (2.5-4.5)
[2016-06-20 14:02] LABS: Calcium 8.1 mg/dL (8.4-10.2); Potassium 4.6 mmol/L (3.5-5.1); Total Bilirubin 0.3 mg/dL (0.2-1.3); Total Protein 5.6 g/dL (6.3-8.2)
[2016-06-20 14:02] LABS: % Iron Saturation 9.9 % (20-50)
[2016-06-20] MEDS: SERTRALINE 25 MG TAB PO SCH (17:30)
[2016-06-21] MEDS: ALPRAZolam 0.25 MG TAB PO SCH ×3 (02:02→16:06)
[2016-06-21] MEDS: SODIUM CHLORIDE 0.9% 1,000 ML IV SCH ×2 (05:18→18:39)
[2016-06-21] MEDS: HYDROcodone/APAP 10-325MG 1 EACH TAB PO PRN ×4 (05:23→18:30)
[2016-06-21] MEDS: PANTOPRAZOLE 40 MG TABLET PO SCH (07:16)
[2016-06-21 08:05] LABS: Magnesium 1.9 mg/dL (1.6-2.3); Phosphorous 4.1 mg/dL (2.5-4.5)
--- NOTE | 2016-06-21 08:46 | PN ---
DATE OF SERVICE: 06/20/2016 This 56-year-old woman who was admitted with abdominal pain as well as ascites also had possibly ovarian carcinoma with metastasis also. The patient had peritoneal carcinomas. The patient underwent ascitic tap with 2 liters of fluid taken out. The findings are pending at this time. CA125 is elevated. HAND CARVER, Dr. Benitez, has seen the patient and epithelial ovarian cancer was suspected. HAND CARVER Oncology referral was also recommended. The patient has significant anxiety and panic episodes also. PAST MEDICAL HISTORY: Reviewed. REVIEW OF SYSTEMS: CARDIOVASCULAR: No angina. RESPIRATORY: As mentioned. GI: As mentioned earlier. : No dysuria. NERVOUS SYSTEM: No numbness or weakness. Current medications are reviewed and include: 1. [place] 10 mg q.8 p.r.n. 2. Xanax. 3. Lioresal. 4. ( ) 40 mg p.o. b.i.d. 5. [place]ace 100 mg p.o. b.i.d. 6. Dilaudid. 7. Keppra. 8. Zestril. 9. Ativan. 10. Zofran. 11. Protonix. 12. Lyrica. 13. Restoril. PHYSICAL EXAMINATION: Patient is alert and oriented x3. Pulse 96, blood pressure 125/67, respirations 20, temperature 97 degrees, pulse ox 99% on room air. HEENT: Conjunctivae normal. NECK: No jugular venous distention. CARDIOVASCULAR: S1 and S2, muffled. RESPIRATORY: Breath sounds diminished at the bases. A few scattered rhonchi. ABDOMEN: Soft. Still significant distention and ascites also present, but much less compared to before the abdominal tap. Bowel sounds present. No guarding, no rigidity. No mass palpable. LEGS: No edema, no swelling. NERVOUS SYSTEM: Higher function as mentioned. Moves all four limbs. No focal motor deficits. LYMPHATIC: No lymphadenopathy in the neck, axillae or groin. SKIN: No ulcer, rash or bleeding. LABS: WBC 10, hemoglobin 10, otherwise iron studies are noted. Peritoneal fluid is total protein 4. ASSESSMENT: 1. Abdominal pain, ascites, as well as left ovarian mass with possible ovarian malignancy with peritoneal carcinomatosis, status post ultrasound-guided abdominal paracentesis with 2 liters of fluid with exudative ascites. 2. Acute lactic acidosis, present on admission, possibly secondary to dehydration. 3. Urinary tract infection, present on admission. 4. Lactic acidosis, 2.7 on admission. 5. CA125 level 1440. 6. Hyponatremia. 7. Anxiety, depression, and panic attacks. 8. Anemia, normocytic anemia of chronic disease. 9. Increased WBC. 10. Hypertension, essential. 11. History of hearing defect. 12. History of renal disease. 13. History of degenerative joint disease. 14. History of seizure disorder. 15. Remote history of nicotine dependence. 16. FULL CODE. RECOMMENDATIONS AND DISCUSSION: I recommend to continue the current medications, continue monitoring and symptomatic treatment. Otherwise at this time I recommend to continue with current medications and continue with antibiotics. Closely follow with multiple consultants. Guarded prognosis because of multiple complex medical issues. I had a detailed discussion with the family and patient at bedside, await biopsy report. Closely follow with multiple consultants including Oncology as mentioned earlier, HAND CARVER Oncology referral also will be made once the diagnosis confirmed. For now, prognosis guarded. Continue antibiotics. Repeat labs will be ordered. Further recommendations to follow. Address panic attacks and anxiety as well.
[2016-06-21] MEDS: busPIRone HCl 10 MG TAB PO SCH ×2 (09:15→21:08)
[2016-06-21] MEDS: levETIRAcetam 500 MG TAB PO SCH ×2 (09:16→21:08)
[2016-06-21] MEDS: SERTRALINE 25 MG TAB PO SCH (09:16)
[2016-06-21] MEDS: LISINOPRIL 20 MG TAB PO SCH (09:16)
[2016-06-21] MEDS: DOCUSATE 100 MG CAP PO SCH ×2 (09:27→21:08)
[2016-06-21 11:56] LABS: % Iron Saturation 5.4 % (20-50)
[2016-06-21 12:35] LABS: Basophils # (A) 0.1 k/uL (0-0.2); Basophils % (A) 0 %; CH 29.9; CHCM 30.9; Eosinophils # (A) 0.1 k/uL (0-0.7); Eosinophils % (A) 1 %; HCT 31.2 % (34.0-46.0); HDW 2.88; HGB 9.8 gm/dL (11.4-16.0); Hypochromasia Moderate; Luc # (Auto) 0.19; Luc % (Auto) 2; Lymphocytes # (A) 0.8 k/uL (1.0-4.8); Lymphocytes % (A) 7 %; MCH 30.7 pg (25.0-35.0); MCHC 31.5 g/dL (31.0-37.0); MCV 97.4 fL (80.0-100.0); Mean Platelet Volume 8.4; Monocytes # (A) 0.7 k/uL (0-1.0); Monocytes % (A) 5 %; Neutrophils # (A) 10.4 k/uL (1.3-7.7); Neutrophils % (A) 86 %; RBC 3.21 m/uL (3.80-5.40); RDW 13.8 % (11.5-15.5); WBC 12.2 k/uL (3.8-10.6); WBC (Perox) 11.78
[2016-06-21 12:46] LABS: Calcium 7.8 mg/dL (8.4-10.2); Potassium 4.6 mmol/L (3.5-5.1)
--- NOTE | 2016-06-21 18:25 | US ---
EXAMINATION TYPE: US venous doppler duplex LE LT DATE OF EXAM: 06/21/2016 5:51 PM COMPARISON: NONE CLINICAL HISTORY: left calf pain. Pain left leg SIDE PERFORMED: Left TECHNIQUE: The lower extremity deep venous system is examined utilizing real time linear array sonog alek with graded compression, doppler sonography and color-flow sonography. VESSELS IMAGED: External Iliac Vein (single frontal view of the chest) Common Femoral Vein Deep Femoral Vein Greater Saphenous Vein * Femoral Vein Popliteal Vein Small Saphenous Vein * Proximal Calf Veins (* superficial vessels) Left Leg: No evidence of DVT IMPRESSION: Grayscale, color doppler, spectral doppler imaging performed of the deep veins of the lo wer extremities. There is normal flow, compressibility, vascular waveforms bilaterally. No evidence of deep venous thrombosis in the veins evaluated in the left lower extremity
--- NOTE | 2016-06-21 18:42 | PN ---
DATE OF SERVICE: 06/21/2016 This 56-year-old woman was admitted with abdominal pain and ascites, being closely monitored. The patient ovarian malignancy . No chest pain. No palpitations. No fever. The patient has significant anxiety and panic episodes also. On exam, alert and oriented times three. Pulse 92, blood pressure 159/74, respiratory rate 16, temperature 97.9, pulse ox 99% on room air. HEENT: Conjunctivae normal. NECK: No jugular venous distention. CARDIOVASCULAR: S1, S2 muffled. RESPIRATORY: Breath sounds diminished at the bases. No rhonchi, no crackles. ABDOMEN: Soft, obese. Ascites present. No guarding. No rigidity. No mass palpable. Minimal diffuse tenderness in the lower part. LEGS: No edema. No swelling. CENTRAL NERVOUS SYSTEM: Higher functions as mentioned earlier. Moves all four limbs. No focal deficits. LYMPHATICS: No lymph nodes palpable in the neck, axillae or groin. SKIN: No ulcer, rash or bleeding. LABS: WBC 12.9, hemoglobin 9.8 and creatinine is 1.7. Otherwise iron is 11, B12 18. ASSESSMENT: 1. Abdominal pain, ascites, status post left ovarian mass with possible ovarian malignancy with peritoneal carcinomatosis, status post ultrasound-guided abdominal paracentesis with 2 liters fluid with exudative ascites. 2. Acute lactic acidosis, present on admission, possibly secondary to dehydration. 3. Urinary tract infection, present on admission. 4. Lactic acidosis 2.71 on admission. 5. CA125 1440. 6. Hyponatremia. 7. Anxiety, depression, panic attacks, not otherwise specified. 8. Anemia, normocytic anemia of chronic disease. 9. Increased WBC. 10. Hypertension, essential. 11. History hearing defects. 12. History of renal disease. 13. History of degenerative joint disease. 14. History of seizure disorder. 15. Remote history of nicotine dependence. 16. FULL CODE. RECOMMENDATIONS AND DISCUSSION: Recommended to continue symptomatic treatment. Otherwise, at this time I would recommend to continue current medications, including IV antibiotics. Await final biopsy report. MEAT PRODUCTS DEMONSTRATOR input appreciated. Further recommendations to follow. Guarded prognosis. MTDD
[2016-06-22] MEDS: ALPRAZolam 0.25 MG TAB PO SCH ×3 (00:33→17:31)
[2016-06-22] MEDS: HYDROcodone/APAP 10-325MG 1 EACH TAB PO PRN ×3 (05:19→15:10)
[2016-06-22] MEDS: PANTOPRAZOLE 40 MG TABLET PO SCH (06:36)
[2016-06-22 07:15] LABS: Basophils % (A) 0 %; CH 30.2; CHCM 31.9; Eosinophils # (A) 0.1 k/uL (0-0.7); Eosinophils % (A) 1 %; HCT 31.4 % (34.0-46.0); HDW 2.98; HGB 9.8 gm/dL (11.4-16.0); Hypochromasia Slight; Luc % (Auto) 2; Lymphocytes # (A) 0.7 k/uL (1.0-4.8); Lymphocytes % (A) 7 %; MCH 29.7 pg (25.0-35.0); MCHC 31.1 g/dL (31.0-37.0); MCV 95.3 fL (80.0-100.0); Mean Platelet Volume 7.2; Monocytes # (A) 0.5 k/uL (0-1.0); Monocytes % (A) 5 %; Neutrophils # (A) 9.1 k/uL (1.3-7.7); Neutrophils % (A) 85 %; RBC 3.29 m/uL (3.80-5.40); RDW 13.8 % (11.5-15.5); WBC 10.7 k/uL (3.8-10.6); WBC (Perox) 10.63
[2016-06-22 07:33] LABS: Anion Gap 8 mmol/L; Blood Urea Nitrogen 5 mg/dL (7-17); Calcium 7.9 mg/dL (8.4-10.2); Carbon Dioxide 22 mmol/L (22-30); Chloride 111 mmol/L (98-107); Glucose 92 mg/dL (74-99); Non-African American GFR(MDRD) 51 (>60 ml/min/1.73 sqM); Phosphorous 4.1 mg/dL (2.5-4.5); Potassium 4.5 mmol/L (3.5-5.1); Sodium 141 mmol/L (137-145)
[2016-06-22] MEDS: SERTRALINE 25 MG TAB PO SCH (09:12)
[2016-06-22] MEDS: LISINOPRIL 20 MG TAB PO SCH (09:13)
[2016-06-22] MEDS: busPIRone HCl 10 MG TAB PO SCH ×2 (09:13→21:21)
[2016-06-22] MEDS: DOCUSATE 100 MG CAP PO SCH ×2 (09:13→21:21)
[2016-06-22] MEDS: levETIRAcetam 500 MG TAB PO SCH ×2 (09:13→21:20)
[2016-06-22] MEDS: SODIUM CHLORIDE 0.9% 1,000 ML IV SCH ×2 (11:57→21:25)
--- NOTE | 2016-06-22 13:40 | P.CN ---
Psychiatric Consult - . Consult date: 06/22/16 Consult:: IDENTIFYING DATA: Mr. Chaudhari is a 56-year-old female admitted to medicine service with increasing suprapubic pain. A computed tomography scan in the ER showed mild to moderate ascites and moderate soft tissue stranding of the greater omentum suggestive of underlying peritoneal carcinomatosis. 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 Chest and brain CT showed no evidence of metastases. Medicine consulted psychiatry for evaluation of anxiety. HISTORY OF PRESENT ILLNESS: I reviewed the medical record and interviewed Ms. Wilson. She complained of feeling anxious and initially would not proceed with the interview without her present. She called her and I explained that her physician consulted me to evaluate her anxiety. With his assurance she agreed to proceed with the interview. She talked about feeling anxious and how the severity of the anxiety fluctuates in intensity. At times it became so severe she had difficulty "thinking". The severe anxiety may sometimes last for hours. She also described intermittent feelings of hopelessness, helplessness and worthlessness. She has intermittent thoughts of suicide but denied intent or plan. She assured me that she would never consider suicide because she has a 16-year-old daughter. Other has depressive symptoms include sadness, pessimism, loss of pleasure, crying, loss of interest , worthlessness, loss of energy, concentration difficulty and tiredness or fatigue. She denied psychotic symptoms such as auditory or visual hallucinations, ideas reference, thought insertion, thought broadcasting or thought control. She denied use of alcohol or drugs with the exception of "occasional" marijuana. She denied areas of elevated mood or sustained irritability consistent with livia or hypomania. PAST PSYCHIATRIC HISTORY: She talked about meeting with a "counselor" several years ago. She denied psychiatric hospitalizations. SUBSTANCE USE HISTORY: She does not drink. She smokes marijuana occasionally. She denied use of other drugs. She denied substance abuse treatment.. FAMILY PSYCHIATRIC/SUBSTANCE USE HISTORY: She was unaware of family history of mental health or substance use problems.. SOCIAL HISTORY: She is born in [place]. Her parents when she was young. She lives with her mother until she was placed in foster care at age 15. She became withdrawn when asked her why she had been placed in foster care. She talked about "nobody believing me and thought that I was lying." She left foster care at age 20. She remarried 3 times. She has 1 child age 16. She her current for 4 years. MENTAL STATUS EXAM: She presented as a female with disheveled appearing 56-year- old female who was pleasant on approach. She anxious and apprehensive about the interview. She maintained eye contact. She appeared to have difficulty attending and concentrating on the interview. She had no distinguishing features or prominent physical abnormalities. She had a distressed facial expression. She was alert and oriented to person, place and time. She showed no abnormality of psychomotor activity. I did not evaluate her gait. His speech was nonspontaneous and had decreased rate, rhythm and volume. Her affect was depressed and anxious. She describes suicidal ideation and wishes without intent or plan. She denied homicidal ideation. She expressed depressive cognitions including hopelessness, helplessness and worthlessness. She ruminated about her illness. She denied ideas of reference, paranoid ideation and did not express delusional thoughts or beliefs. Her thinking was concrete but her associations were coherent and logical. She denied hallucinations and did not appear to be responding to internal stimuli He completed the [facility] Orientation Memory and Concentration test. Her total weighted error score was 12; a total weighted error score greater than 10 is consistent with dementia. She knew the month and year. She is able to register the memory phrase "Marek Bernabe, [address] [place] [address]." She did not estimate time correctly within 1 hour actual time. She was able to count backwards from 20 but she was unable to name the months of the year backwards ( beginning with January). She recalled 3 elements of memory phrase. IMPRESSIONS: She is a 56-year-old woman admitted to medicine service with increased suprapubic pain. 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 She has symptoms of moderate to severe anxiety and symptoms of depression. She has suicidal thoughts without intent or plan. There is no evidence of psychosis. Not certain if her performance on mental status testing is a result of a cognitive impairment because she had marked difficulty with concentration and attention. Recommend beginning antidepressant and antipsychotic such as olanzapine for the treatment of depression and anxiety. PLAN: Begin olanzapine 2.5 mg by mouth twice a day and an increase the sertraline to 50 mg daily. Taper and eventually discontinue BuSpar. Will follow. 06/22/16 12:22
[2016-06-22] MEDS: OLANZapine 2.5 MG TAB PO SCH ×2 (15:01→21:21)
--- NOTE | 2016-06-22 15:29 | PN ---
DATE OF SERVICE: 06/22/2016 This is a 56-year-old woman who was admitted with abdominal pain and ascites, had suspected ovarian carcinoma, no chest pain or palpitation. No fever. Patient also had significant anxiety and panic attacks also. On exam, alert and oriented x3. Pulse 90, blood pressure 140/86, respirations 18, temperature is 97.4, pulse ox 96% on room air. HEENT: Conjunctivae normal. NECK: No jugular venous distension. CARDIOVASCULAR SYSTEM: S1, S2, muffled. RESPIRATORY: Breath sounds diminished at the bases, a few scattered rhonchi, no crackles. ABDOMEN: Soft, nontender. LEGS: No edema, no swelling. NERVOUS SYSTEM: No focal deficits. LABS: WBC is 10.7, hemoglobin is 9.8, INR 1.11. ASSESSMENT: 1. Abdominal pain, ascites, possibly with left ovarian mass with possible ovarian malignancy with peritoneal carcinoma, status post ultrasound-guided abdominal paracentesis with 2 L of fluid with exudative ascites, final cytology pending. 2. Acute lactic acidosis present on admission, possibly secondary to dehydration . 3. Urinary tract infection, present on admission on IV antibiotics. 4. Lactic acidosis 2.7 on admission. 5. CA-125 is 1440. 6. Hyponatremia. 7. Anxiety, depression, panic attacks, not otherwise specified. 8. Anemia, normocytic anemia of chronic disease. 9. Increased WBC. 10. Hypertension, essential. 11. History of hearing defect. 12. History of renal disease. 13. History of degenerative joint disease. 14. History of seizure disorder. 15. Remote history of nicotine dependence. 16. FULL CODE. RECOMMENDATION: Recommend to continue the current medications. Continue with the monitoring and symptomatic treatment. Otherwise, at this time I would recommend continue with the current medications. Psychiatry . Will discuss with Dr. Jc for the further plan of action. Await biopsies, continue with symptomatic treatment and IV antibiotics. Further recommendations to follow. Olanzapine 2.5 mg has been added to the current regimen. MTDD
[2016-06-22] MEDS ORDERED: CYANOCOBALAMIN 1,000 MCG/ML 1 ML VIAL IM ONE (15:30)
--- NOTE | 2016-06-22 22:59 | P.PN ---
Subjective The pt feels much better post paracentesis. She has been able to move her bowels. No f/c/n/v/ Objective - Vital Signs Vital signs: Vital Signs Temp 98.1 F 06/22/16 21:26 Pulse 89 06/22/16 21:26 Resp 18 06/22/16 21:26 BP 133/61 06/22/16 21:26 Pulse Ox 94 L 06/22/16 21:26 Intake & Output 06/22/16 06/22/16 06/23/16 06:59 18:59 06:59 Output Total 601 Balance -601 Output: Urine 600 Stool 1 Other: # Voids 1 2 # Bowel Movements 1 - Constitutional General appearance: Present: no acute distress - EENT Eyes: Present: EOMI, PERRLA ENT: Present: hearing grossly normal, normal oropharynx - Respiratory Respiratory: bilateral: CTA - Cardiovascular Rhythm: regular Heart sounds: normal: S1, S2 - Gastrointestinal General gastrointestinal: Present: distended, normal bowel sounds, soft - Integumentary Integumentary: Present: normal - Musculoskeletal Musculoskeletal: Present: strength equal bilaterally - Psychiatric Psychiatric Comment(s): anxiety Psychiatric: Present: A&O x's 3 - Labs CBC & Chem 7: 06/22/16 06:35 06/22/16 06:35 Labs: Abnormal Lab Results - Last 24 Hours (Table) 06/22/16 06/22/16 Range/Units 06:35 06:35 WBC 10.7 H (3.8-10.6) k/uL RBC 3.29 L (3.80-5.40) m/uL Hgb 9.8 L (11.4-16.0) gm/dL Hct 31.4 L (34.0-46.0) % Plt Count 459 H (150-450) k/uL Neutrophils # 9.1 H (1.3-7.7) k/uL Lymphocytes # 0.7 L (1.0-4.8) k/uL Chloride 111 H (98-107) mmol/L BUN 5 L (7-17) mg/dL Creatinine 1.11 H (0.52-1.04) mg/dL Calcium 7.9 L (8.4-10.2) mg/dL Microbiology - Last 24 Hours (Table) 04/21/17 16:25 Gram Stain - Preliminary Peritoneal Fluid Body Fluid Culture - Preliminary 06/22/16 09:30 Stool Culture - Preliminary Stool 06/19/16 16:25 Anaerobic Culture - Preliminary Peritoneal Fluid Assessment and Plan (1) Peritoneal carcinomatosis Narrative/Plan: Cytology is still pending. CT chest was negative. It was again d/w the pt and her that an ovarian primary is the primary differential. without pathologic diagnosis, other primaries cannot be ruled out. - If cytology confirms a termite technician primary, the std of care would be referral to [facility]. For ovarian primary , with Ct chest negative, and no evidence of visceral mets on Ct AP. the std of care would be radical surgery + [place] [place] based chemo. [facility] would decide if the chemo would be given adjuvantly or pre op. - THe pt and her family would like to go to the [facility]. If appropriate, referral will be made by the office as an outpt. - Case d/w IM - While referral is pending, we can continue paracentesis prn Status: Acute (2) Ovarian mass, left Status: Acute (3) Anemia Narrative/Plan: Labs indicate B12 deficiency. B12 injections were started. Based on iron studies, iron deficiency cannot be ruled out Status: Acute
[2016-06-23] MEDS: ALPRAZolam 0.25 MG TAB PO SCH ×2 (00:14→08:52)
[2016-06-23] MEDS: HYDROcodone/APAP 10-325MG 1 EACH TAB PO PRN ×3 (00:14→10:33)
[2016-06-23 00:21] VITALS: TEMP 98.2
[2016-06-23] MEDS: busPIRone HCl 10 MG TAB PO SCH (08:52)
[2016-06-23] MEDS: DOCUSATE 100 MG CAP PO SCH (08:53)
[2016-06-23] MEDS: OLANZapine 2.5 MG TAB PO SCH (08:53)
[2016-06-23] MEDS: levETIRAcetam 500 MG TAB PO SCH (08:53)
[2016-06-23] MEDS: PANTOPRAZOLE 40 MG TABLET PO SCH (08:53)
[2016-06-23 08:57] VITALS: BP 152/81; PULSE 87; RESP 16
[2016-06-23] MEDS ORDERED: SERTRALINE 50 MG TAB PO SCH (09:00)
[2016-06-23] MEDS: LISINOPRIL 20 MG TAB PO SCH (09:03)
[2016-06-23] MEDS ORDERED: CYANOCOBALAMIN 1,000 MCG/ML 1 ML VIAL IM SCH (10:00)
[2016-06-23] MEDS: SODIUM CHLORIDE 0.9% 1,000 ML IV SCH (10:39)
[2016-06-23] MEDS ORDERED: FOLIC ACID 1 MG TAB PO SCH (12:00)
--- NOTE | 2016-06-23 17:08 | DS ---
DATE OF ADMISSION: 06/18/2016 DATE OF DISCHARGE: 06/23/2016 FINAL DIAGNOSES: 1. Abdominal pain, ascites; possible left ovarian mass with possible ovarian malignancy with peritoneal carcinomatosis, status post ultrasound-guided abdominal paracentesis for 2 liters of fluid, exudative ascites; final cytology pending. 2. Acute lactic acidosis, present on admission, possibly secondary to dehydration. 3. Urinary tract infection, present on admission, with IV antibiotics. 4. Lactic acidosis, 2.7 on admission. 5. CA125 of 1440. 6. Hyponatremia. 7. Anxiety, depression, panic attacks not otherwise specified. 8. Anemia, normocytic; anemia of chronic disease. 9. Increased white count. 10. Hypertension, essential. 11. History of hearing defects. 12. History of renal disease. 13. History of degenerative joint disease. 14. History of seizure disorder. 15. Remote history of nicotine dependence. L 16. FULL CODE. DISCHARGE DISPOSITION: The patient will be discharged in stable condition with guarded prognosis. Discharge cleared by multiple consultants. HISTORY OF PRESENT ILLNESS: This 56-year-old woman with a past medical history of multiple medical problems, being followed by Dr. Vilchis in the outpatient setting, was admitted with abdominal pain, ascites as well as left ovarian mass; left ovarian malignancy was suspected. The patient was treated in conjunction with Hematology/Oncology. Ascitic fluid aspiration was done. The final biopsy report is pending at this time. The patient also has significant anxiety and panic episodes. Psychiatry also saw the patient. There was no evidence of DVT in the lower legs. The chest and brain CTs were also unremarkable. On exam, vitals are stable. CARDIOVASCULAR: S1, S2 muffled. ABDOMEN: Soft. Minimal diffuse discomfort. No guarding. No rigidity. No mass palpable. Minimal ascites. NERVOUS SYSTEM: No focal deficit. DISCHARGE ADVICE AND MEDICATIONS: 1. Diet is cardiac. 2. Activity limited until followup. 3. Follow up with Dr. Vilchis in 2 to 3 days. 4. Follow up with Dr. Jc as advised. 5. Tylenol 650 q.6 p.r.n. 6. Lioresal 10 mg b.i.d. p.r.n. 7. Colace 100 mg p.o. b.i.d. 8. Hydrocodone 10 mg q.8 p.r.n. 9. Levaquin 500 mg p.o. daily for 5 days. 10. Zestril 20 mg p.o. daily. 11. Zyprexa 2.5 mg p.o. b.i.d. 12. Lyrica 50 mg p.o. b.i.d. p.r.n. 13. Zoloft 50 mg p.o. daily. 14. BuSpar 30 mg p.o. b.i.d. 15. BuSpar 10 mg p.o. b.i.d. 16. Keppra 500 mg p.o. b.i.d. Once again, the patient will be discharged in stable condition with guarded prognosis.
== END 2016-06-23 12:42 | disposition home or self-care (01) | DRG 375 ==
LOC: EC 21:49 → 5MS5E 06-18 02:21 → 6PED 06-18 06:51
PROVIDERS: ADMIT Hospitalist; ATTEND Hospitalist
PROC: 0W9G3ZX Drainage of Peritoneal Cavity, Percutaneous Approach, Diagnostic (ICD-10-PCS; principal; 2016-06-19)
DX: C78.6 Secondary malignant neoplasm of retroperitoneum and peritoneum (principal); E87.2 Acidosis; R18.0 Malignant ascites; F03.90 Unspecified dementia, unspecified severity, without behavioral disturbance, psychotic disturbance, mood disturbance, and anxiety; R45.851 Suicidal ideations; C56.2 Malignant neoplasm of left ovary; I10 Essential (primary) hypertension; E86.0 Dehydration; E87.1 Hypo-osmolality and hyponatremia; N39.0 Urinary tract infection, site not specified; D63.0 Anemia in neoplastic disease; F32.9 Major depressive disorder, single episode, unspecified; G40.909 Epilepsy, unspecified, not intractable, without status epilepticus; F41.0 Panic disorder [episodic paroxysmal anxiety]; K59.00 Constipation, unspecified; G89.29 Other chronic pain; R35.0 Frequency of micturition; N27.0 Small kidney, unilateral; M47.9 Spondylosis, unspecified; M54.5 Low back pain; R11.2 Nausea with vomiting, unspecified; E53.8 Deficiency of other specified B group vitamins; F17.210 Nicotine dependence, cigarettes, uncomplicated; D72.829 Elevated white blood cell count, unspecified; N28.9 Disorder of kidney and ureter, unspecified; H91.93 Unspecified hearing loss, bilateral; H91.90 Unspecified hearing loss, unspecified ear; R68.83 Chills (without fever); F12.90 Cannabis use, unspecified, uncomplicated; R53.1 Weakness; K80.20 Calculus of gallbladder without cholecystitis without obstruction; Z88.0 Allergy status to penicillin; Z87.42 Personal history of other diseases of the female genital tract; Z86.19 Personal history of other infectious and parasitic diseases; Z82.49 Family history of ischemic heart disease and other diseases of the circulatory system; Z83.3 Family history of diabetes mellitus; Z79.899 Other long term (current) drug therapy; Z86.69 Personal history of other diseases of the nervous system and sense organs; Z79.891 Long term (current) use of opiate analgesic; F41.9 Anxiety disorder, unspecified; Z98.51 Tubal ligation status; Z82.3 Family history of stroke; Z78.0 Asymptomatic menopausal state; Z71.3 Dietary counseling and surveillance
CPT/HCPCS: 36415; 49083; 70450; 71010; 71250; 74022; 74177; 80048; 80053; 81001; 82042; 82272; 82607; 82728; 82747; 83540; 83550; 83605; 83615; 83735; 83921; 84100; 84157; 85025; 85045; 85610; 86304; 87040; 87045; 87046; 87070; 87075; 87086; 87205; 88108; 88305; 88341; 88342; 96361; 96365; 96366; 96372; 96375; 96376; 99285

== ENCOUNTER 2016-06-26 20:49 | Emergency (ER) | payer MEDICARE, OTHER ==
[2016-06-26 21:02] VITALS: RESP 18; TEMP 97.4
[2016-06-26] MEDS ORDERED: SODIUM CHLORIDE 0.9% 1,000 ML IV STA (21:12)
--- NOTE | 2016-06-26 21:17 | ED ---
Abdominal Pain HPI - General Chief Complaint: Abdominal Pain Stated Complaint: abd pain Time Seen by Provider: 06/26/16 21:00 Source: patient, RN notes reviewed Mode of arrival: EMS Limitations: no limitations - History of Present Illness Initial Comments: 46-year-old female presents to the emergency department with a chief complaint of lower abdominal pain and constipation. Patient states she was diagnosed with ovarian cancer last week. Patient states at that time she was shaking like having tremors and she had abdominal pain. Patient states that about one week and having similar like symptoms today. Family states that they were concerned so they thought that they should be evaluated.Patient denies any recent fever, chills, shortness of breath, chest pain, back pain, nausea vomiting, numbness or tingling, dysuria or hematuria, constipation or diarrhea, headaches or visual changes, or any other current symptoms. - Related Data Home Medications Medication Instructions Recorded Confirmed busPIRone HCL [Buspar] 30 mg PO BID 08/23/13 06/26/16 levETIRAcetam [Keppra] 500 mg PO BID 08/23/13 06/26/16 Acetaminophen Tab [Tylenol] 650 mg PO Q6H PRN 06/10/16 06/26/16 HYDROcodone/APAP 10-325MG [Brackney 0.5 tab PO BID PRN 06/10/16 06/26/16 10-325] Pregabalin [Lyrica] 50 mg PO BID PRN 06/10/16 06/26/16 busPIRone HCl [Buspar] 10 mg PO BID PRN 06/10/16 06/26/16 Previous Rx's Medication Instructions Recorded Docusate [Colace] 100 mg PO BID #60 cap 06/23/16 Levofloxacin [Levaquin] 500 mg PO DAILY #5 tablet 06/23/16 Sertraline [Zoloft] 50 mg PO DAILY #30 tab 06/23/16 Allergies Allergy/AdvReac Type Severity Reaction Status Date / Time Penicillins Allergy Rash/Hives Verified 06/26/16 21:39 Review of Systems ROS Statement: Those systems with pertinent positive or pertinent negative responses have been documented in the HPI. ROS Other: All systems not noted in ROS Statement are negative. Past Medical History Past Medical History: Eye Disorder, Hearing Disorder / Deafness, Hypertension, Osteoarthritis (OA), Renal Disease, Seizure Disorder Additional Past Medical History / Comment(s): Last seizure summer 2015 per pt, current UTI on ABX, chronic low back pain (was supposed to have sx today but cancelled d/t UTI), generalized arthritis, renal insufficiency, chronic anemia, glaucoma bilaterally with surgery, CROW bilaterally. Gynecologic history is significant for section and laparoscopy in the past with lysis of adhesions and cystectomy. Last Pap smear was per Dr. Rossi in January 2012 and was normal. History of Any Multi-Drug Resistant Organisms: None Reported Past Surgical History: Section, Tonsillectomy, Tubal Ligation Additional Past Surgical History / Comment(s): Buttock abcess with surgery, lasek eye surgery bilaterally for glaucoma. Past Anesthesia/Blood Transfusion Reactions: No Reported Reaction Past Psychological History: Anxiety, Depression Additional Psychological History / Comment(s): Pt has severe anxiety. She resides with her significant other and her 16yr old daughter. She has a cane and a walker. She no longer drives, her s.o. takes her to appts. She attended special education while in school. She can read and write, minimally. Smoking Status: Former smoker Past Alcohol Use History: None Reported Additional Past Alcohol Use History / Comment(s): Pt started smoking in 1976 and states she quit 4 days ago. Past Drug Use History: None Reported Additional Drug Use History / Comment(s): Occasional marijuana use. - Past Family History Father Family Medical History: CVA/TIA, Diabetes Mellitus, Hypertension Additional Family Medical History / Comment(s): Father at the age of 65yrs. Mother Family Medical History: No Reported History Additional Family Medical History / Comment(s): . General Exam - General Exam Comments Initial Comments: General: The patient is awake and alert, in no distress, and does not appear acutely ill. Eye: Pupils are equal, round and reactive to light, extra-ocular movements are intact; there is normal conjunctiva bilaterally. No signs of icterus. Ears, nose, mouth and throat: There are moist mucous membranes and no oral lesions. Neck: The neck is supple, there is no tenderness. Cardiovascular: There is a regular rate and rhythm. No murmur, rub or gallop is appreciated. Respiratory: Lungs are clear to auscultation, respirations are non-labored, breath sounds are equal. No wheezes, stridor, rales, or rhonchi. Gastrointestinal: Tender to, non-tender abdomen without masses or organomegaly noted. There is no rebound or guarding present. No CVA tenderness. Bowel sounds are unremarkable. Back: There is no tenderness to palpation in the midline. There is no obvious deformity. No rashes noted. Musculoskeletal: Normal ROM, no tenderness, There is no pedal edema. There is no calf tenderness or swelling. Sensation intact. Pulses equal bilaterally 2+. Neurological: CN II-XII intact, There are no obvious motor or sensory deficits. Coordination appears grossly intact. Speech is normal. Skin: Skin is warm and dry and no rashes or lesions are noted. Psychiatric: Cooperative, appropriate mood & affect, normal judgment. Limitations: no limitations Course Vital Signs 06/26/16 06/26/16 20:58 23:39 Temperature 97.4 F L Pulse Rate 98 97 Respiratory 18 18 Rate Blood Pressure 114/54 142/65 O2 Sat by Pulse 94 L 95 Oximetry Medical Decision Making - Medical Decision Making 56-year-old male presents with chief complaint of abdominal pain and tremors. At this time patient's lab work is reviewed that does appear stable prior to previous lab work. At this time we did was discussed patient's pathology results. We discussed continued follow-up with Dr. Jc. We did discuss on the patient and family's questions. They stated they understood. Patient does have a bowel movement with the enema. This time they will be discharged home and all questions have been answered. They will be discharged. - Lab Data Result diagrams: 06/26/16 21:30 06/26/16 21:30 Lab Results 06/26/16 06/26/16 06/26/16 Range/Units 21:30 21:30 23:30 WBC 11.7 H (3.8-10.6) k/uL RBC 3.17 L (3.80-5.40) m/uL Hgb 9.3 L (11.4-16.0) gm/dL Hct 30.1 L (34.0-46.0) % MCV 94.9 (80.0-100.0) fL MCH 29.3 (25.0-35.0) pg MCHC 30.8 L (31.0-37.0) g/dL RDW 13.9 (11.5-15.5) % Plt Count 366 (150-450) k/uL Neutrophils % 77 % Lymphocytes % 11 % Monocytes % 5 % Eosinophils % 4 % Basophils % 0 % Neutrophils # 9.0 H (1.3-7.7) k/uL Lymphocytes # 1.3 (1.0-4.8) k/uL Monocytes # 0.6 (0-1.0) k/uL Eosinophils # 0.4 (0-0.7) k/uL Basophils # 0.0 (0-0.2) k/uL Hypochromasia Slight Sodium 137 (137-145) mmol/L Potassium 4.3 (3.5-5.1) mmol/L Chloride 108 H (98-107) mmol/L Carbon Dioxide 21 L (22-30) mmol/L Anion Gap 8 mmol/L BUN 14 (7-17) mg/dL Creatinine 1.60 H (0.52-1.04) mg/dL Est GFR (MDRD) Af Amer 41 (>60 ml/min/1.73 sqM) Est GFR (MDRD) Non-Af 33 (>60 ml/min/1.73 sqM) Glucose 97 (74-99) mg/dL Calcium 7.5 L (8.4-10.2) mg/dL Total Bilirubin 0.1 L (0.2-1.3) mg/dL AST 26 (14-36) U/L ALT 24 (9-52) U/L Alkaline Phosphatase 50 (38-126) U/L Total Protein 5.3 L (6.3-8.2) g/dL Albumin 2.6 L (3.5-5.0) g/dL Amylase 38 (30-110) U/L Lipase 26 (23-300) U/L Urine Color Light Yellow Urine Appearance Clear (Clear) Urine pH 5.5 (5.0-8.0) Ur Specific [place] 1.004 (1.001-1.035) Urine Protein Negative (Negative) Urine Glucose (UA) Negative (Negative) Urine Ketones Negative (Negative) Urine Blood Negative (Negative) Urine Nitrite Negative (Negative) Urine Bilirubin Negative (Negative) Urine Urobilinogen <2.0 (<2.0) mg/dL Ur Leukocyte Esterase Moderate H (Negative) Urine RBC 2 (0-5) /hpf Urine WBC 2 (0-5) /hpf Ur Squamous Epith Cells 3 (0-4) /hpf Urine Bacteria Rare H (None) /hpf Urine Mucus Rare H (None) /hpf - Radiology Data Radiology results: report reviewed, image reviewed Disposition Clinical Impression: Constipation, Dehydration Disposition: HOME SELF-CARE Condition: Stable Instructions: Constipation (ED) Additional Instructions: Please use medication as discussed. Please follow up with family doctor if symptoms have not improved over the next two days. Please return to the emergency room if your symptoms increase or worsen or for any other concerns. Referrals: Sylvester Vilchis MD [Primary Care Provider] - 1-2 days Time of Disposition: 00:55
[2016-06-26 21:45] LABS: Basophils % (A) 0 %; CH 29.9; CHCM 31.7; Eosinophils # (A) 0.4 k/uL (0-0.7); Eosinophils % (A) 4 %; HCT 30.1 % (34.0-46.0); HDW 3.05; HGB 9.3 gm/dL (11.4-16.0); Hypochromasia Slight; Luc # (Auto) 0.28; Luc % (Auto) 2; Lymphocytes # (A) 1.3 k/uL (1.0-4.8); Lymphocytes % (A) 11 %; MCH 29.3 pg (25.0-35.0); MCHC 30.8 g/dL (31.0-37.0); MCV 94.9 fL (80.0-100.0); Mean Platelet Volume 7.4; Monocytes # (A) 0.6 k/uL (0-1.0); Monocytes % (A) 5 %; Neutrophils % (A) 77 %; RBC 3.17 m/uL (3.80-5.40); RDW 13.9 % (11.5-15.5); WBC 11.7 k/uL (3.8-10.6); WBC (Perox) 11.54
[2016-06-26 21:54] LABS: Calcium 7.5 mg/dL (8.4-10.2); Potassium 4.3 mmol/L (3.5-5.1); Total Bilirubin 0.1 mg/dL (0.2-1.3); Total Protein 5.3 g/dL (6.3-8.2)
--- NOTE | 2016-06-26 22:03 | XR ---
EXAMINATION TYPE: XR abdomen 2V DATE OF EXAM: 06/26/2016 9:48 PM COMPARISON: NONE HISTORY: Abdominal pain, UTI, and constipation. History of , tubal ligation and ovarian canc er. TECHNIQUE: Upright and supine abdominal radiographs were obtained. FINDINGS: There is a nonobstructive bowel gas pattern. No evidence of dilated bowel or abnormal amoun t of air-fluid levels. No abnormal calcifications are seen within the abdomen or pelvis. Mild degener ative changes are seen of the lumbosacral junction. Osseous structures appear intact. IMPRESSION: Nonobstructive bowel gas pattern.
[2016-06-26 23:54] LABS: Appearance,Urine Clear (Clear); Bacteria,Urine Rare /hpf; Bilirubin,Urine Negative (Negative); Glucose,Urine (UA) Negative (Negative); Ketones,Urine Negative (Negative); Leukocyte Esterase,Urine Moderate (Negative); Mucus,Urine Rare /hpf; Nitrite,Urine Negative (Negative); PH, Urine 5.5 (5.0-8.0); Particle Count 1679; Protein,Urine Negative (Negative); RBC,Urine 2 /hpf (0-5); Specific Gravity,Urine 1.004 (1.001-1.035); Squamous Epithelial Cell,Urine 3 /hpf (0-4); UA Billing (MACRO vs. MICRO) MICRO; Urobilinogen,Urine <2.0 mg/dL (<2.0); WBC,Urine 2 /hpf (0-5)
[2016-06-27 01:57] VITALS: BP 137/61; PULSE 96
== END 2016-06-27 01:15 | disposition home or self-care (01) ==
LOC: EC 20:49
DX: K59.00 Constipation, unspecified (principal); E86.0 Dehydration; G40.909 Epilepsy, unspecified, not intractable, without status epilepticus; F41.9 Anxiety disorder, unspecified; Z87.891 Personal history of nicotine dependence; Z79.899 Other long term (current) drug therapy; Z88.0 Allergy status to penicillin
CPT/HCPCS: 36415; 74020; 80053; 81001; 82150; 83690; 85025; 96360; 99284

== ENCOUNTER 2016-06-30 14:50 | Inpatient (IN) | payer MEDICARE, OTHER ==
[2016-06-30] MEDS ORDERED: HYDROmorphone 1 MG/ML 1 ML SYRINGE IVP STA (15:13)
[2016-06-30] MEDS ORDERED: SODIUM CHLORIDE 0.9% 1,000 ML IV STA ×2 (15:13)
[2016-06-30] MEDS ORDERED: ONDANSETRON 4 MG/2 ML VIAL IVP STA (15:13)
[2016-06-30 15:26] LABS: Basophils # (A) 0.1 k/uL (0-0.2); Basophils % (A) 1 %; CH 29.7; CHCM 32.1; Eosinophils # (A) 0.2 k/uL (0-0.7); Eosinophils % (A) 1 %; HCT 36.8 % (34.0-46.0); HDW 3.16; HGB 11.6 gm/dL (11.4-16.0); Hypochromasia Slight; Luc # (Auto) 0.26; Luc % (Auto) 2; Lymphocytes # (A) 1.2 k/uL (1.0-4.8); Lymphocytes % (A) 8 %; MCH 29.3 pg (25.0-35.0); MCHC 31.6 g/dL (31.0-37.0); MCV 92.6 fL (80.0-100.0); Mean Platelet Volume 7.7; Monocytes # (A) 0.5 k/uL (0-1.0); Monocytes % (A) 3 %; Neutrophils # (A) 13.8 k/uL (1.3-7.7); Neutrophils % (A) 86 %; RBC 3.97 m/uL (3.80-5.40); RDW 14.1 % (11.5-15.5); WBC (Perox) 16.54
--- NOTE | 2016-06-30 15:28 | ED ---
Abdominal Pain HPI - General Chief Complaint: Abdominal Pain Stated Complaint: abdominal Pain Time Seen by Provider: 06/30/16 14:56 Source: patient Mode of arrival: wheelchair Limitations: no limitations - History of Present Illness Initial Comments: The patient is a 56-year-old female who presents to the ED with a chief complaint of abdominal pain. Patient notes that the pain is located in the lower abdomen. Patient states that this pain has been periodic since she was initially diagnosed with ovarian cancer earlier in May. Patient came to the ED with similar symptoms during that visit. Patient states that she had constipation at that point in time. Computed tomography scan demonstrated evidence of a large left-sided ovarian cyst in addition to peritoneal carcinomatosis. Patient was admitted to the hospital and had a paracentesis performed. 3L of fluid was removed at that point in time. This was sent off for further analysis. The patient's pain resolved after paracentesis and she was discharged home. Patient is been back to the ED twice since that point in time. She's had similar complaints during each of those visits. Patient has indicated that she would like to follow up with [facility] but has been unable to schedule a follow-up appointment. As result, the patient has yet to see [facility] as an outpatient. Patient denies any fevers or chills. She denies any dysuria or hematuria. Patient feels a sensation as if she has to have a large bowel movement. - Related Data Home Medications Medication Instructions Recorded Confirmed busPIRone HCL [Buspar] 30 mg PO BID 08/23/13 06/30/16 levETIRAcetam [Keppra] 500 mg PO BID 08/23/13 06/30/16 Acetaminophen Tab [Tylenol] 650 mg PO Q6H PRN 06/10/16 06/30/16 HYDROcodone/APAP 10-325MG [[place] 0.5 tab PO BID PRN 06/10/16 06/30/16 10-325] Pregabalin [Lyrica] 50 mg PO BID PRN 06/10/16 06/30/16 busPIRone HCl [Buspar] 10 mg PO BID PRN 06/10/16 06/30/16 Previous Rx's Medication Instructions Recorded Docusate [Colace] 100 mg PO BID #60 cap 06/23/16 Levofloxacin [Levaquin] 500 mg PO DAILY #5 tablet 06/23/16 Sertraline [Zoloft] 50 mg PO DAILY #30 tab 06/23/16 Allergies Allergy/AdvReac Type Severity Reaction Status Date / Time Penicillins Allergy Rash/Hives Verified 06/30/16 15:12 Review of Systems ROS Statement: Those systems with pertinent positive or pertinent negative responses have been documented in the HPI. ROS Other: All systems not noted in ROS Statement are negative. Constitutional: Denies: fever, chills, weakness Eyes: Denies: eye pain ENT: Denies: ear pain Respiratory: Denies: cough, dyspnea, wheezes, hemoptysis Cardiovascular: Denies: chest pain Endocrine: Denies: fatigue Gastrointestinal: Reports: abdominal pain, nausea, vomiting, constipation. Denies: diarrhea, hematemesis, melena Genitourinary: Reports: frequency (decreased). Denies: urgency, dysuria, hematuria Musculoskeletal: Denies: back pain Skin: Denies: rash Neurological: Denies: headache, weakness, numbness, paresthesias, confusion Psychiatric: Reports: anxiety. Denies: depression Hematological/Lymphatic: Reports: easy bleeding Past Medical History Past Medical History: Eye Disorder, Hearing Disorder / Deafness, Hypertension, Osteoarthritis (OA), Renal Disease, Seizure Disorder Additional Past Medical History / Comment(s): Last seizure summer 2015 per pt, current UTI on ABX, chronic low back pain (was supposed to have sx today but cancelled d/t UTI), generalized arthritis, renal insufficiency, chronic anemia, glaucoma bilaterally with surgery, WRANGELL bilaterally. Gynecologic history is significant for section and laparoscopy in the past with lysis of adhesions and cystectomy. Last Pap smear was per Dr. Rossi in January 2012 and was normal. History of Any Multi-Drug Resistant Organisms: None Reported Past Surgical History: Section, Tonsillectomy, Tubal Ligation Additional Past Surgical History / Comment(s): Buttock abcess with surgery, lasek eye surgery bilaterally for glaucoma. Past Anesthesia/Blood Transfusion Reactions: No Reported Reaction Past Psychological History: Anxiety, Depression Additional Psychological History / Comment(s): Pt has severe anxiety. She resides with her significant other and her 16yr old daughter. She has a cane and a walker. She no longer drives, her s.o. takes her to appts. She attended special education while in school. She can read and write, minimally. Smoking Status: Former smoker Past Alcohol Use History: None Reported Additional Past Alcohol Use History / Comment(s): Pt started smoking in 1976 and states she quit 4 days ago. Past Drug Use History: None Reported Additional Drug Use History / Comment(s): Occasional marijuana use. - Past Family History Father Family Medical History: CVA/TIA, Diabetes Mellitus, Hypertension Additional Family Medical History / Comment(s): Father at the age of 65yrs. Mother Family Medical History: No Reported History Additional Family Medical History / Comment(s): . General Exam Limitations: no limitations General appearance: alert, anxious Head exam: Present: atraumatic, normocephalic Eye exam: Present: normal appearance, PERRL, EOMI, other (patient wears glasses) Pupils: Present: normal accommodation ENT exam: Present: normal exam, mucous membranes dry Neck exam: Present: normal inspection, full ROM Respiratory exam: Present: normal lung sounds bilaterally. Absent: respiratory distress, wheezes, rales, rhonchi, stridor Cardiovascular Exam: Present: regular rate, tachycardia GI/Abdominal exam: Present: soft, distended ([id number]), tenderness ( diffuse), guarding (mild voluntary). Absent: rebound, rigid Extremities exam: Present: normal inspection Back exam: Present: normal inspection Neurological exam: Present: alert, oriented X3, other (tremor noted at baseline) Psychiatric exam: Present: normal affect, anxious Skin exam: Present: warm, dry, intact Course Vital Signs 06/30/16 06/30/16 06/30/16 14:52 14:54 16:00 Temperature 98.2 F 98.0 F 98.1 F Pulse Rate 110 H 51 L 87 Respiratory 20 18 99 H Rate Blood Pressure 181/88 112/66 125/61 O2 Sat by Pulse 97 99 Oximetry Medical Decision Making - Medical Decision Making Patient is a 56-year-old female who presents to the ED with a chief complaint of abdominal pain. Patient states that the pain is located in the lower abdomen. Patient notes that she has a sensation of constipation. Patient denies any fevers or chills. Patient was recently diagnosed with ovarian cancer. Patient is yet to follow up with [facility]. She notes that she has had increased pain and his been in the ED twice in the past related to her symptoms. Patient is noted to be distended on examination. She is diffusely tender. Will check acute abdominal series to rule out possibility of obstruction. We'll also check an ultrasound to rule out large degree of ascites given the patient had paracentesis performed on prior visit with 3 L of fluid removed. Provide patient with IV fluids as well as medication for pain control. 4:50 PM Patient noted to have elevated WBC count. Ascites demonstrated on ultrasound. Acute Abdominal Series demonstrates no evidence of obstruction. No obvious source of infection. Given recent paracentesis will cover patient with Rocephin 2mg IVP for potential SBP. Obtain blood cultures prior to starting patient on antibiotics. The patient states that her pain is improved at this point in time. 5:28 PM Spoke with Sussy the PA for Dr. Hill. She accepts admission of the patient. Patient may require repeat paracentesis. - Lab Data Result diagrams: 06/30/16 15:10 06/30/16 15:10 Lab Results 06/30/16 06/30/16 06/30/16 Range/Units 15:10 15:10 15:10 WBC 16.0 H (3.8-10.6) k/uL RBC 3.97 (3.80-5.40) m/uL Hgb 11.6 (11.4-16.0) gm/dL Hct 36.8 (34.0-46.0) % MCV 92.6 (80.0-100.0) fL MCH 29.3 (25.0-35.0) pg MCHC 31.6 (31.0-37.0) g/dL RDW 14.1 (11.5-15.5) % Plt Count 428 (150-450) k/uL Neutrophils % 86 % Lymphocytes % 8 % Monocytes % 3 % Eosinophils % 1 % Basophils % 1 % Neutrophils # 13.8 H (1.3-7.7) k/uL Lymphocytes # 1.2 (1.0-4.8) k/uL Monocytes # 0.5 (0-1.0) k/uL Eosinophils # 0.2 (0-0.7) k/uL Basophils # 0.1 (0-0.2) k/uL Hypochromasia Slight PT (9.0-12.0) sec INR (<1.1) APTT (22.0-30.0) sec Sodium 139 (137-145) mmol/L Potassium 4.4 (3.5-5.1) mmol/L Chloride 106 (98-107) mmol/L Carbon Dioxide 20 L (22-30) mmol/L Anion Gap 13 mmol/L BUN 10 (7-17) mg/dL Creatinine 1.29 H (0.52-1.04) mg/dL Est GFR (MDRD) Af Amer 52 (>60 ml/min/1.73 sqM) Est GFR (MDRD) Non-Af 43 (>60 ml/min/1.73 sqM) Glucose 119 H (74-99) mg/dL Plasma Lactic Acid Nilesh 2.6 H* (0.7-2.0) mmol/L Calcium 8.6 (8.4-10.2) mg/dL Magnesium 2.0 (1.6-2.3) mg/dL Total Bilirubin 0.5 (0.2-1.3) mg/dL AST 31 (14-36) U/L ALT 22 (9-52) U/L Alkaline Phosphatase 68 (38-126) U/L Total Protein 6.9 (6.3-8.2) g/dL Albumin 3.5 (3.5-5.0) g/dL 06/30/16 Range/Units 15:10 WBC (3.8-10.6) k/uL RBC (3.80-5.40) m/uL Hgb (11.4-16.0) gm/dL Hct (34.0-46.0) % MCV (80.0-100.0) fL MCH (25.0-35.0) pg MCHC (31.0-37.0) g/dL RDW (11.5-15.5) % Plt Count (150-450) k/uL Neutrophils % % Lymphocytes % % Monocytes % % Eosinophils % % Basophils % % Neutrophils # (1.3-7.7) k/uL Lymphocytes # (1.0-4.8) k/uL Monocytes # (0-1.0) k/uL Eosinophils # (0-0.7) k/uL Basophils # (0-0.2) k/uL Hypochromasia PT 10.1 (9.0-12.0) sec INR 1.0 (<1.1) APTT 24.9 (22.0-30.0) sec Sodium (137-145) mmol/L Potassium (3.5-5.1) mmol/L Chloride (98-107) mmol/L Carbon Dioxide (22-30) mmol/L Anion Gap mmol/L BUN (7-17) mg/dL Creatinine (0.52-1.04) mg/dL Est GFR (MDRD) Af Amer (>60 ml/min/1.73 sqM) Est GFR (MDRD) Non-Af (>60 ml/min/1.73 sqM) Glucose (74-99) mg/dL Plasma Lactic Acid Nilesh (0.7-2.0) mmol/L Calcium (8.4-10.2) mg/dL Magnesium (1.6-2.3) mg/dL Total Bilirubin (0.2-1.3) mg/dL AST (14-36) U/L ALT (9-52) U/L Alkaline Phosphatase (38-126) U/L Total Protein (6.3-8.2) g/dL Albumin (3.5-5.0) g/dL Disposition Clinical Impression: Intractable abdominal pain, Ovarian cancer Disposition: ADMITTED IP TO THIS [facility] Condition: Good Referrals: Sylvester Vilchis MD [Primary Care Provider] - 1-2 days Decision to Admit Reason: Admit from EC Decision Date: 06/30/16 Decision Time: 17:33
[2016-06-30 15:38] LABS: Calcium 8.6 mg/dL (8.4-10.2); Potassium 4.4 mmol/L (3.5-5.1); Total Bilirubin 0.5 mg/dL (0.2-1.3); Total Protein 6.9 g/dL (6.3-8.2)
[2016-06-30 15:40] LABS: Partial Thromboplastin Time 24.9 sec (22.0-30.0); Prothrombin Time 10.1 sec (9.0-12.0)
--- NOTE | 2016-06-30 16:23 | US ---
EXAMINATION TYPE: US abdomen limited DATE OF EXAM: 06/30/2016 3:55 PM COMPARISON: NONE CLINICAL HISTORY: Lower abdominal pain. Hx of ovarian cancer. Abd pain, h/o paracentesis Moderate amount of fluid seen within all four quadrants. Limited scanning performed of the abdomen. IMPRESSION: Ascites
[2016-06-30] MEDS ORDERED: cefTRIAXone 2,000 MG in SODIUM CHLORIDE 0.9% 100 ML IVPB STA (16:49)
--- NOTE | 2016-06-30 17:02 | XR ---
EXAMINATION TYPE: Acute abdominal series DATE OF EXAM: 06/30/2016 4:34 PM COMPARISON: 06/17/2016 HISTORY: 56 year-old female abdominal pain and bloating FINDINGS: Heart is normal size. Aortopulmonary vasculature within normal limits. There is some focal hazy densi ty at the peripheral left lower lung. No pleural effusion. No evidence for free intraperitoneal air. Some borderline distended small bowel loops in the midabdomen and small air-fluid levels. Overall [place] of colonic gas. 3 mm calcification in the left midabdomen IMPRESSION: 1. Some atelectasis or early infiltrate at the peripheral left lower lung. Correlate for any respirat ory symptoms. 2. borderline distended small bowel loops with air-fluid levels. Findings could represent an enteriti s or ileus. Early small bowel obstruction not excluded at this time. 3. A 3 mm calcification left mid abdomen could represent a renal calculus and was present on 7.
[2016-06-30] MEDS ORDERED: NALOXONE 0.4 MG/ML 1 ML VIAL IV PRN (17:33)
[2016-06-30] MEDS ORDERED: ACETAMINOPHEN TAB 325 MG TAB PO STA (17:43)
[2016-06-30] MEDS: HYDROmorphone 1 MG/ML 1 ML SYRINGE IV PRN ×2 (19:36→23:00)
[2016-06-30] MEDS ORDERED: busPIRone HCl 10 MG TAB PO PRN (19:40)
[2016-06-30] MEDS ORDERED: ACETAMINOPHEN TAB 325 MG TAB PO PRN (19:40)
[2016-06-30] MEDS ORDERED: PREGABALIN 50 MG CAP PO PRN (19:40)
[2016-06-30 22:40] LABS: Appearance,Urine Clear (Clear); Bilirubin,Urine Negative (Negative); Glucose,Urine (UA) Negative (Negative); Ketones,Urine Trace (Negative); Leukocyte Esterase,Urine Negative (Negative); Nitrite,Urine Negative (Negative); PH, Urine 5.5 (5.0-8.0); Protein,Urine Negative (Negative); Specific Gravity,Urine 1.009 (1.001-1.035); UA Billing (MACRO vs. MICRO) CHEM; Urobilinogen,Urine <2.0 mg/dL (<2.0)
[2016-06-30] MEDS: busPIRone HCl 10 MG TAB PO SCH (22:51)
[2016-06-30] MEDS: levETIRAcetam 500 MG TAB PO SCH (22:52)
[2016-06-30] MEDS: DOCUSATE 100 MG CAP PO SCH (22:52)
[2016-07-01] MEDS: HYDROmorphone 1 MG/ML 1 ML SYRINGE IVP PRN ×4 (02:08→12:18)
[2016-07-01 08:42] LABS: INR 1.1 (<1.1)
[2016-07-01 08:43] LABS: Basophils % (A) 0 %; CH 29.5; CHCM 31.3; Eosinophils # (A) 0.1 k/uL (0-0.7); Eosinophils % (A) 1 %; HCT 31.6 % (34.0-46.0); HDW 3.23; Hypochromasia Moderate; Luc # (Auto) 0.11; Luc % (Auto) 1; Lymphocytes # (A) 0.3 k/uL (1.0-4.8); Lymphocytes % (A) 2 %; MCH 30.1 pg (25.0-35.0); MCHC 31.8 g/dL (31.0-37.0); MCV 94.7 fL (80.0-100.0); Mean Platelet Volume 7.7; Monocytes # (A) 0.3 k/uL (0-1.0); Monocytes % (A) 3 %; Neutrophils # (A) 10.2 k/uL (1.3-7.7); Neutrophils % (A) 93 %; RBC 3.33 m/uL (3.80-5.40); RDW 13.9 % (11.5-15.5); WBC (Perox) 11.21
[2016-07-01 08:46] LABS: Calcium 7.6 mg/dL (8.4-10.2); Magnesium 1.8 mg/dL (1.6-2.3); Phosphorous 3.9 mg/dL (2.5-4.5); Potassium 4.8 mmol/L (3.5-5.1); Total Bilirubin 0.4 mg/dL (0.2-1.3); Total Protein 5.4 g/dL (6.3-8.2)
[2016-07-01] MEDS: DOCUSATE 100 MG CAP PO SCH ×2 (09:00→20:33)
[2016-07-01] MEDS: SERTRALINE 50 MG TAB PO SCH (09:00)
[2016-07-01] MEDS: busPIRone HCl 10 MG TAB PO SCH ×2 (09:00→20:33)
[2016-07-01] MEDS: levETIRAcetam 500 MG TAB PO SCH ×2 (09:00→20:34)
[2016-07-01] MEDS ORDERED: POLYETHYLENE GLYCOL 3350 17 GM POWD.PACK PO PRN (10:47)
--- NOTE | 2016-07-01 12:34 | US ---
EXAMINATION TYPE: US paracentesis abd w/image DATE OF EXAM: 07/01/2016 11:35 AM COMPARISON: NONE HISTORY: Ascites. PROCEDURE: Maximal barrier technique was utilized. The skin overlying a suitable pocket of fluid was localized with ultrasound and the overlying skin was prepped and draped. Ultrasound was utilized with sterile technique. Lidocaine was used for local anesthesia and a skin joana made with a scalpel. Catheter was advanced under direct ultrasound guidance into a suitable pocket of fluid and approximately 3.6 liter s of serous fluid were removed. Catheter was withdrawn and hemostasis achieved. There is no immedia te complication; the patient is discharged in stable condition. IMPRESSION: STATUS POST ULTRASOUND GUIDED PARACENTESIS FOR PALLIATION OF ASCITES. THIS PROCEDURE WA S PERFORMED BY THE UNDERSIGNED.
--- NOTE | 2016-07-01 13:48 | HP ---
DATE OF ADMISSION: Patient is a 56-year-old, came in with complaints of severe abdominal pain, diffuse and patient was diagnosed with ovarian cancer. Patient denied any fever, chills. Patient is found to have ascites. Patient underwent at ascitic fluid drainage today already and this pain is probably related to pericardial carcinomatosis. The patient is requiring high doses of narcotics for pain which I will transition her to transdermal patch. Patient has leukocytosis which appears to be reactive. Patient is on Rocephin, which will be continued until we get the peritoneal fluid analysis, probably will not require that and patient's pain is probably related to peritoneal carcinomatosis rather than infarction and leukocytosis is reactive response secondary to severe pain. REVIEW OF SYSTEMS: CONSTITUTIONAL: No fever, no malaise, no fatigue. HEENT: No recent visual problems or hearing problems. Denied any sore throat. CARDIOVASCULAR: No chest pain, orthopnea, PND, no palpitations, no syncope. PULMONARY: No shortness of breath, no cough, no hemoptysis. GASTROINTESTINAL: As described in HPI. NEUROLOGICAL: No headaches, no weakness, no numbness. HEMATOLOGICAL: Denies any bleeding or petechiae. GENITOURINARY: Denies any burning micturition, frequency, or urgency. MUSCULOSKELETAL/RHEUMATOLOGICAL: Denies any joint pain, swelling, or any muscle pain. ENDOCRINE: Denies any polyuria or polydipsia. The rest of the 14 point review of systems is negative. Home medications include: 1. Buspirone. 2. Acetaminophen. 3. Levofloxacin. 4. Pregabalin. 5. Docusate. 6. Sertraline. ALLERGIES: Allergic to PENICILLIN. Past medical history is significant for hypertension, osteoarthritis, seizure disorder, recent diagnosis of ovarian cancer. Patient is a former smoker. Quit smoking a few days ago. Denied any alcohol abuse. The patient uses marijuana. FAMILY HISTORY: Father had CVA, TIA, diabetes mellitus, hypertension, at age 65. Mother had no report history. PHYSICAL EXAMINATION: VITAL SIGNS: Temperature 97.1, pulse of 94, respiratory rate of 20, blood pressure is 144/58, saturating at 93% on room air. PHYSICAL EXAMINATION: GENERAL: The patient is alert and oriented x3, not in any acute distress. Well developed, well nourished. HEENT: Pupils are round and equally reacting to light. EOMI. No scleral icterus. No conjunctival pallor. Normocephalic, atraumatic. No pharyngeal erythema. No thyromegaly. CARDIOVASCULAR: S1 and S2 present. No murmurs, rubs, or gallops. PULMONARY: Chest is clear to auscultation, no wheezing or crackles. ABDOMEN: Soft, nontender, nondistended, normoactive bowel sounds. No palpable organomegaly. MUSCULOSKELETAL: No joint swelling or deformity. EXTREMITIES: No cyanosis, clubbing, or pedal edema. NEUROLOGICAL: Gross neurological examination did not reveal any focal deficits. SKIN: No rashes. I examined the patient after paracentesis, removed of 3.5 L. Patient's abdomen I can barely see any shifting, dullness at this point of time because of the removal of fluid. No significant tenderness, no rebound or rigidity. Patient's abdominal pain significantly improved after paracentesis. LABORATORY DATA: CBC, CMP are abnormal for elevated WBC count of 16,000, came down to 11,000 and creatinine of 1.29, came down to 1.16. Patient is on IV fluids. Abdominal ultrasound and acute abdominal series were reviewed and paracentesis ultrasound was reviewed as well. ASSESSMENT AND PLAN: 1. Severe abdominal pain and ascites secondary to ovarian cancer and peritoneal carcinomatosis, suspicion of infection is low. 2. Acute renal failure due to intravascular volume depletion and dehydration. Patient will be started on IV fluids for that. 3. Normocytic anemia, anemia of chronic disease. 4. Hypertension. 5. Seizure disorder. For above mentioned chronic medical problems, I will go ahead and continue her home medications. Oncology was consulted.
--- NOTE | 2016-07-01 14:13 | XR ---
EXAMINATION TYPE: XR abdomen acute w cxr DATE OF EXAM: 07/01/2016 12:04 PM COMPARISON: Prior exam second of June 2016, CT chest 18 Jul 2016 HISTORY: Status post paracentesis, abnormal chest x-ray TECHNIQUE: Frontal view of the chest and 2 views the abdomen submitted. FINDINGS: Minimal patchy density again noted in the left lower lung may represent scarring. There is no evidence for pneumoperitoneum. The bowel gas pattern is unremarkable as there is air throughout nondilated small and large bowel. No sizeable air fluid levels. No mass effects are seen. No unusual calcifications. IMPRESSION: Unremarkable study
[2016-07-01] MEDS ORDERED: HALOPERIDOL 1 MG TAB PO PRN (17:07)
[2016-07-01] MEDS ORDERED: KETOROLAC 30 MG/ML 1 ML VIAL IVP PRN (17:15)
[2016-07-01] MEDS ORDERED: KETOROLAC 30 MG/ML 1 ML VIAL IVP SCH (18:00)
--- NOTE | 2016-07-01 20:28 | P.CONS ---
History of Present Illness - Reason for Consult Consult date: 07/01/16 New Diagnosis ovarian cancer - History of Present Illness The patient is a 56-year-old lady, who had been having complains of abdominal distention with progressive discomfort over the last couple of weeks, leading to a recent admission on 06/18/16. She had not had a bowel movement in the last 5-6 days. Over the 24 hours prior to her presentation here, she had been complaining of chills though no definite fevers. It appeared that she may have had a diagnosis of UTI. Due to the progression of the abdominal symptoms, as well as the additional symptoms noted above, she came into the emergency room. She also complained of some nausea though no evident vomiting. CT of the abdomen and pelvis revealed evidence of ascites, with soft tissue stranding of the greater omentum, suspicious for peritoneal carcinomatosis. In addition there was a 4.23.8 cm well-circumscribed left pelvic mass noted. She underwent a diagnostic and therapeutic paracentesis, with improvement in her symptoms. She was then discharged. Computed tomography scan of the chest showed no evidence of metastasis in that area. 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 On presentation, CA-125 had been elevated above 1000. The patient was readmitted, with some increasing abdominal distention as well as pain. Abdominal x-ray is raised the possibility of possible ileus versus early obstruction. Abdominal ultrasound showed recurrent ascites, though less than before. She was therefore admitted for further management. Review of Systems Constitutional: Reports chronic pain, Reports poor appetite, Reports weight loss Eyes: denies blurred vision, denies pain Ears: deny: decreased hearing, ear discharge, earache, tinnitus Ears, nose, mouth and throat: Denies headache, Denies sore throat Cardiovascular: Reports decreased exercise tolerance Respiratory: Reports dyspnea Gastrointestinal: Reports abdominal pain, Reports nausea Genitourinary: Denies dysuria, Denies hematuria Menstruation: Reports postmenopausal Musculoskeletal: Denies myalgias Integumentary: Denies pruritus, Denies rash Neurological: Denies numbness, Denies weakness Psychiatric: Reports anxiety (Severe. Seen by psychiatry last visit) Endocrine: Reports fatigue, Reports weight change Hematologic/Lymphatic: Reports as per HPI Past Medical History Past Medical History: Eye Disorder, Hearing Disorder / Deafness, Hypertension, Osteoarthritis (OA), Renal Disease, Seizure Disorder Additional Past Medical History / Comment(s): PT POOR HISTORIAN W/MEDICAL- stated was here recently they found cyst/mass ?ca lt ovary .pt stated was supposed to f/u at another hospital but ended up coming into er today. Last seizure summer 2015 per pt, current UTI on ABX, chronic low back pain (was supposed to have sx today but cancelled d/t UTI), generalized arthritis, renal insufficiency, chronic anemia, glaucoma bilaterally with surgery, CHEESH-NA bilaterally. Gynecologic history is significant for section and laparoscopy in the past with lysis of adhesions and cystectomy. Last Pap smear was per Dr. Rossi in January 2012 and was normal. History of Any Multi-Drug Resistant Organisms: None Reported Past Surgical History: Section, Tonsillectomy, Tubal Ligation Additional Past Surgical History / Comment(s): Buttock abcess with surgery, lasek eye surgery bilaterally for glaucoma.paracentesis Past Anesthesia/Blood Transfusion Reactions: No Reported Reaction Past Psychological History: Anxiety, Depression Additional Psychological History / Comment(s): Pt has severe anxiety. She resides with her significant other and her 16yr old daughter. She has a cane and a walker. She no longer drives, her s.o. takes her to [employer]. She attended special education while in school. She can read and write, minimally. Smoking Status: Former smoker Past Alcohol Use History: None Reported Additional Past Alcohol Use History / Comment(s): Pt started smoking in 1976 and states she quit 12 days ago. Past Drug Use History: None Reported Additional Drug Use History / Comment(s): Occasional marijuana use. - Past Family History Father Family Medical History: CVA/TIA, Diabetes Mellitus, Hypertension Additional Family Medical History / Comment(s): Father at the age of 65yrs. Mother Family Medical History: No Reported History Additional Family Medical History / Comment(s): . Medications and Allergies Home Medications Medication Instructions Recorded Confirmed Type busPIRone HCL [Buspar] 30 mg PO BID 08/23/13 06/30/16 History levETIRAcetam [Keppra] 500 mg PO BID 08/23/13 06/30/16 History Acetaminophen Tab [Tylenol] 650 mg PO Q6H PRN 06/10/16 06/30/16 History HYDROcodone/APAP 10-325MG [[place] 0.5 tab PO BID PRN 06/10/16 06/30/16 History 10-325] Pregabalin [Lyrica] 50 mg PO BID PRN 06/10/16 06/30/16 History busPIRone HCl [Buspar] 10 mg PO BID PRN 06/10/16 06/30/16 History Allergies Allergy/AdvReac Type Severity Reaction Status Date / Time Penicillins Allergy Rash/Hives Verified 06/30/16 15:12 Physical Exam Vitals: Vital Signs Temp Pulse Pulse Resp BP Pulse Ox 07/01/16 15:00 97.1 F L 69 18 138/64 98 07/01/16 11:36 94 20 114/55 98 07/01/16 11:15 96 20 132/66 98 07/01/16 11:09 95 20 113/64 98 07/01/16 11:03 93 20 119/56 97 07/01/16 10:55 94 20 107/55 96 07/01/16 10:45 95 20 105/54 96 07/01/16 10:33 94 20 112/52 98 07/01/16 07:00 97.1 F L 95 16 139/63 94 L 06/30/16 20:53 97.5 F L 84 16 119/54 96 Intake and Output 07/01/16 07/01/16 07/01/16 06:59 14:59 22:59 Other: Voiding Method Toilet Toilet Toilet # Voids 2 3 3 # Bowel Movements 1 - Constitutional General appearance: mild distress - EENT Eyes: EOMI, PERRLA ENT: hearing grossly normal, normal oropharynx - Neck Neck: no lymphadenopathy Thyroid: bilateral: normal size - Respiratory Respiratory: bilateral: CTA - Cardiovascular Rhythm: regular Heart sounds: normal: S1, S2 - Gastrointestinal Free fluid positive General gastrointestinal: distended, normal bowel sounds, soft - Integumentary Integumentary: normal - Neurologic Neurologic: CNII-XII intact - Musculoskeletal Musculoskeletal: strength equal bilaterally - Psychiatric Psychiatric: A&O x's 3 Results CBC & Chem 7: 07/01/16 07:46 07/01/16 07:46 Labs: Abnormal Lab Results - Last 24 Hours (Table) 06/30/16 07/01/16 07/01/16 Range/Units 22:25 07:46 07:46 WBC 11.0 H (3.8-10.6) k/uL RBC 3.33 L (3.80-5.40) m/uL Hgb 10.0 L D (11.4-16.0) gm/dL Hct 31.6 L (34.0-46.0) % Neutrophils # 10.2 H (1.3-7.7) k/uL Lymphocytes # 0.3 L (1.0-4.8) k/uL Chloride 110 H (98-107) mmol/L Carbon Dioxide 19 L (22-30) mmol/L Creatinine 1.16 H (0.52-1.04) mg/dL Calcium 7.6 L (8.4-10.2) mg/dL Total Protein 5.4 L (6.3-8.2) g/dL Albumin 2.6 L (3.5-5.0) g/dL Urine Ketones Trace H (Negative) Abdominal x-ray: report reviewed CT scan - abdomen: report reviewed US - abdomen: report reviewed Assessment and Plan (1) Ovarian cancer Narrative/Plan: The patient cytology, that was done on the ascites fluid, during her previous visit, confirmed tissue diagnosis of nonmucinous ovarian cancer. The patient appears to have stage III disease with ascites and omental involvement. The diagnosis and application were discussed in detail with the patient and her fianc. Stage III ovarian cancer is treated with curative intent, with combination chemotherapy and surgery. The patient will need a DERMATOLOGY SPECIALIST oncology consult. Status: Acute (2) Intractable abdominal pain Narrative/Plan: The patient is complaining of severe abdominal pain, that is somewhat diffuse though more localized to the lower abdomen. Abdominal exam, the ascites was likely fairly benign, with no rigidity or guarding, and good bowel sounds. I suspect, that there is a major anxiety component to her pain. Pain medications will be adjusted. Repeat therapeutic paracentesis will be ordered. Post paracentesis, repeat abdominal x-ray will be done. If the patient shows any signs of progressing to obstruction, we will plan on transferred to tertiary care facility for DERMATOLOGY SPECIALIST oncology evaluation. However, if she has no evidence of obstruction or perforation, and symptoms are able to be controlled, she can have her consultation as an outpatient. Status: Acute
[2016-07-01] MEDS ORDERED: MORPHINE SULFATE 2 MG/ML SYRINGE IVP PRN (20:29)
[2016-07-01 22:55] VITALS: PULSE 88; RESP 16
[2016-07-02] MEDS: HYDROcodone/APAP 5-325MG 1 EACH TAB PO PRN ×2 (05:41→09:54)
[2016-07-02 08:03] VITALS: BP 125/63; TEMP 98
[2016-07-02] MEDS: SERTRALINE 50 MG TAB PO SCH (08:30)
[2016-07-02] MEDS: levETIRAcetam 500 MG TAB PO SCH (08:30)
[2016-07-02] MEDS: DOCUSATE 100 MG CAP PO SCH (08:30)
[2016-07-02] MEDS: busPIRone HCl 10 MG TAB PO SCH (08:31)
[2016-07-02 11:32] VITALS: BMI 26.2
--- NOTE | 2016-07-03 08:40 | DS ---
DATE OF ADMISSION: 06/30/2016 DATE OF DISCHARGE: 07/02/2016 A 56-year-old admitted with severe abdominal pain secondary to peritoneal metastasis and ovarian cancer. Patient has a therapeutic paracentesis of 2.5 L. I do not believe patient has any intra-abdominal sepsis at this point of time or peritonitis. Patient already is on Levaquin from home. She can complete from the course of that Levaquin. Patient will be discharged today. Patient's pain is well controlled with fentanyl patch and I counseled her regarding constipation from fentanyl patch and patient will be discharged today. Patient is quite anxious and will use Xanax for now and patient may need to be on antidepressant as well. Patient is already on Zoloft and buspirone, doses of which can be increased. The patient was seen and examined on the day of discharge. Vitals are stable. PHYSICAL EXAMINATION: GENERAL: The patient is alert and oriented x3, not in any acute distress. Well developed, well nourished. HEENT: Pupils are round and equally reacting to light. EOMI. No scleral icterus. No conjunctival pallor. Normocephalic, atraumatic. No pharyngeal erythema. No thyromegaly. CARDIOVASCULAR: S1 and S2 present. No murmurs, rubs, or gallops. PULMONARY: Chest is clear to auscultation, no wheezing or crackles. ABDOMEN: No significant change compared to yesterday. MUSCULOSKELETAL: No joint swelling or deformity. EXTREMITIES: No cyanosis, clubbing, or pedal edema. NEUROLOGICAL: Gross neurological examination did not reveal any focal deficits. SKIN: No rashes. ASSESSMENT AND PLAN: 1. Severe abdominal pain secondary to peritoneal metastases or ovarian cancer. Patient will need to follow with [facility] regarding that. 2. Acute renal failure due to intravascular depletion and dehydration. 3. Normocytic anemia, 4. Hypertension. 5. Seizure disorder. Patient will be discharged today and patient will follow up with Dr. Vilchis in 3 to [address] Jc in about a week and Chip as scheduled. Activity as tolerated. A regular diet. Please refer to my depart summary for the list of discharge medications. Spent greater than 35 minutes in total discharge process.
== END 2016-07-02 12:25 | disposition home health service (06) | DRG 375 ==
LOC: EC 14:50 → 5MS5E 17:33
PROVIDERS: ADMIT Internal Medicine; ATTEND Internal Medicine
PROC: 0W9G3ZZ Drainage of Peritoneal Cavity, Percutaneous Approach (ICD-10-PCS; principal; 2016-07-01)
DX: C78.6 Secondary malignant neoplasm of retroperitoneum and peritoneum (principal); C56.2 Malignant neoplasm of left ovary; N17.9 Acute kidney failure, unspecified; R18.8 Other ascites; E86.0 Dehydration; I10 Essential (primary) hypertension; G89.3 Neoplasm related pain (acute) (chronic); D63.8 Anemia in other chronic diseases classified elsewhere; G40.909 Epilepsy, unspecified, not intractable, without status epilepticus; H91.90 Unspecified hearing loss, unspecified ear; M19.91 Primary osteoarthritis, unspecified site; G89.29 Other chronic pain; M54.5 Low back pain; H40.9 Unspecified glaucoma; F32.9 Major depressive disorder, single episode, unspecified; F41.9 Anxiety disorder, unspecified; F12.90 Cannabis use, unspecified, uncomplicated; K59.00 Constipation, unspecified; Z87.891 Personal history of nicotine dependence; Z79.899 Other long term (current) drug therapy
CPT/HCPCS: 36415; 49083; 74022; 76705; 80053; 81003; 83605; 83735; 84100; 85025; 85610; 85730; 87040

== ENCOUNTER 2016-07-26 09:19 | Observation (INO) | payer MEDICARE, OTHER ==
[2016-07-26] MEDS ORDERED: HYDROmorphone 1 MG/ML 1 ML SYRINGE IVP STA (09:38)
[2016-07-26] MEDS ORDERED: ONDANSETRON 4 MG/2 ML VIAL IVP STA (09:38)
[2016-07-26] MEDS ORDERED: SODIUM CHLORIDE 0.9% 1,000 ML IV STA (09:38)
--- NOTE | 2016-07-26 09:41 | ED ---
General Adult HPI - General Chief complaint: Abdominal Pain Stated complaint: Abd Pain Time Seen by Provider: 07/26/16 09:30 Source: patient, EMS, RN notes reviewed Mode of arrival: EMS Limitations: no limitations - History of Present Illness Initial comments: Patient 56-year-old female sitting up in the past mental history for ovarian cancer, who presents emergency room today by EMS, the chief complaint of increased abdominal pain and swelling. She does admit that she's had 2 previous paracentesis performed over the last few months. States most recently just 2 weeks ago. She states she is scheduled to have a total hysterectomy down at [facility] on 07/30/2016. She does admit that she began having increased abdominal pain this morning. Patient does admit that she feels more distended. Admits the majority of the pain being in the lower abdomen. She denies any other complaints. Patient denies any recent fever, chills, shortness of breath, chest pain, back pain, nausea or vomiting, numbness or tingling, dysuria or hematuria, constipation or diarrhea, headaches or visual changes, or any other complaints. - Related Data Home Medications Medication Instructions Recorded Confirmed busPIRone HCL [Buspar] 30 mg PO BID 08/23/13 07/26/16 levETIRAcetam [Keppra] 500 mg PO BID 08/23/13 07/26/16 HYDROcodone/APAP 10-325MG [[place] 0.5 tab PO BID PRN 06/10/16 07/26/16 10-325] Pregabalin [Lyrica] 50 mg PO BID PRN 06/10/16 07/26/16 Nitrofurantoin Monohyd/M-Cryst 100 mg PO Q12HR 07/26/16 07/26/16 [Macrobid] Previous Rx's Medication Instructions Recorded Docusate [Colace] 100 mg PO BID #60 cap 06/23/16 Sertraline [Zoloft] 50 mg PO DAILY #30 tab 06/23/16 fentaNYL 50MCG/HR PATCH [Duragesic 1 patch TRANSDERM Q72H #10 patch 07/02/16 50MCG/HR] Allergies Allergy/AdvReac Type Severity Reaction Status Date / Time Penicillins Allergy Rash/Hives Verified 07/26/16 09:28 Review of Systems ROS Statement: Those systems with pertinent positive or pertinent negative responses have been documented in the HPI. ROS Other: All systems not noted in ROS Statement are negative. Past Medical History Past Medical History: Cancer, Eye Disorder, Hearing Disorder / Deafness, Hypertension, Osteoarthritis (OA), Renal Disease, Seizure Disorder Additional Past Medical History / Comment(s): ovarian CA, chronic low back pain , generalized arthritis, renal insufficiency, chronic anemia, glaucoma bilaterally with surgery, [place] bilaterally. History of Any Multi-Drug Resistant Organisms: None Reported Past Surgical History: Section, Tonsillectomy, Tubal Ligation Additional Past Surgical History / Comment(s): Buttock abcess with surgery, lasek eye surgery bilaterally for glaucoma.paracentesis Past Anesthesia/Blood Transfusion Reactions: No Reported Reaction Past Psychological History: Anxiety, Depression Additional Psychological History / Comment(s): Pt has severe anxiety. She resides with her significant other and her 16yr old daughter. She has a cane and a walker. She no longer drives, her s.o. takes her to appts. She attended special education while in school. She can read and write, minimally. Smoking Status: Former smoker Past Alcohol Use History: None Reported Additional Past Alcohol Use History / Comment(s): Pt started smoking in 1976 and states she quit 12 days ago. Past Drug Use History: None Reported Additional Drug Use History / Comment(s): Occasional marijuana use. - Past Family History Father Family Medical History: CVA/TIA, Diabetes Mellitus, Hypertension Additional Family Medical History / Comment(s): Father at the age of 65yrs. Mother Family Medical History: No Reported History Additional Family Medical History / Comment(s): . General Exam - General Exam Comments Initial Comments: General: The patient is awake and alert, in no distress, and does not appear acutely ill. Eye: Pupils are equal, round and reactive to light, extra-ocular movements are intact. No nystagmus. There is normal conjunctiva bilaterally. No signs of icterus. Ears, nose, mouth and throat: There are moist mucous membranes and no oral lesions. Neck: The neck is supple, there is no tenderness or JVD. Cardiovascular: There is a regular rate and rhythm. No murmur, rub or gallop is appreciated. Respiratory: Lungs are clear to auscultation, respirations are non-labored, breath sounds are equal. No wheezes, stridor, rales, or rhonchi. Gastrointestinal: Patient does have bowel sounds. Abdomen is firm on palpation mildly swollen. Tender in the lower quadrants with mild tenderness in both the left and right upper. No rebound. No guarding. Musculoskeletal: Normal ROM, no tenderness. Strength 5/5. Sensation intact. Pulses equal bilaterally 2+. Neurological: A&O x 3. CN II-XII intact, There are no obvious motor or sensory deficits. Coordination appears grossly intact. Speech is normal. Skin: Skin is warm and dry and no rashes or lesions are noted. Psychiatric: Cooperative, appropriate mood & affect, normal judgment. Limitations: no limitations Course Vital Signs 07/26/16 09:20 Temperature 97.2 F L Pulse Rate 80 Respiratory 18 Rate Blood Pressure 146/63 O2 Sat by Pulse 97 Oximetry Medical Decision Making - Lab Data Result diagrams: 07/26/16 09:48 07/26/16 09:48 Lab Results 07/26/16 07/26/16 07/26/16 Range/Units 09:48 09:48 10:53 WBC 8.3 (3.8-10.6) k/uL RBC 4.11 (3.80-5.40) m/uL Hgb 11.8 (11.4-16.0) gm/dL Hct 38.3 (34.0-46.0) % MCV 93.0 (80.0-100.0) fL MCH 28.6 (25.0-35.0) pg MCHC 30.7 L (31.0-37.0) g/dL RDW 13.9 (11.5-15.5) % Plt Count 192 (150-450) k/uL Neutrophils % 81 % Lymphocytes % 10 % Monocytes % 4 % Eosinophils % 2 % Basophils % 0 % Neutrophils # 6.8 (1.3-7.7) k/uL Lymphocytes # 0.9 L (1.0-4.8) k/uL Monocytes # 0.4 (0-1.0) k/uL Eosinophils # 0.2 (0-0.7) k/uL Basophils # 0.0 (0-0.2) k/uL Hypochromasia Marked Sodium 137 (137-145) mmol/L Potassium 4.3 (3.5-5.1) mmol/L Chloride 105 (98-107) mmol/L Carbon Dioxide 25 (22-30) mmol/L Anion Gap 7 mmol/L BUN 13 (7-17) mg/dL Creatinine 1.33 H (0.52-1.04) mg/dL Est GFR (MDRD) Af Amer 50 (>60 ml/min/1.73 sqM) Est GFR (MDRD) Non-Af 41 (>60 ml/min/1.73 sqM) Glucose 87 (74-99) mg/dL Calcium 8.0 L (8.4-10.2) mg/dL Total Bilirubin 0.6 (0.2-1.3) mg/dL AST 28 (14-36) U/L ALT 17 (9-52) U/L Alkaline Phosphatase 68 (38-126) U/L Total Protein 6.1 L (6.3-8.2) g/dL Albumin 2.9 L (3.5-5.0) g/dL Amylase 44 (30-110) U/L Lipase 60 (23-300) U/L Urine Color Yellow Urine Appearance Clear (Clear) Urine pH 5.5 (5.0-8.0) Ur Specific [place] 1.006 (1.001-1.035) Urine Protein Negative (Negative) Urine Glucose (UA) Negative (Negative) Urine Ketones 1+ H (Negative) Urine Blood Negative (Negative) Urine Nitrite Negative (Negative) Urine Bilirubin Negative (Negative) Urine Urobilinogen <2.0 (<2.0) mg/dL Ur Leukocyte Esterase Moderate H (Negative) Urine RBC <1 (0-5) /hpf Urine WBC 1 (0-5) /hpf Ur Squamous Epith Cells 2 (0-4) /hpf Urine Bacteria Rare H (None) /hpf Urine Mucus Rare H (None) /hpf Disposition Clinical Impression: Intractable abdominal pain Disposition: ADMITTED IP TO THIS HOSP Condition: Good Instructions: Abdominal Pain (ED) Additional Instructions: Please use medication as discussed. Please follow-up with family doctor in the next 2 days of symptoms have not improved. Please return to emergency room if the symptoms increase or worsen or for any other concerns. Referrals: Sylvester Vilchis MD [Primary Care Provider] - 1-2 days Time of Disposition: 11:28
[2016-07-26 09:57] LABS: Basophils % (A) 0 %; CH 28.1; CHCM 30.3; Eosinophils # (A) 0.2 k/uL (0-0.7); Eosinophils % (A) 2 %; HCT 38.3 % (34.0-46.0); HGB 11.8 gm/dL (11.4-16.0); Hypochromasia Marked; Luc # (Auto) 0.13; Luc % (Auto) 2; Lymphocytes # (A) 0.9 k/uL (1.0-4.8); Lymphocytes % (A) 10 %; MCH 28.6 pg (25.0-35.0); MCHC 30.7 g/dL (31.0-37.0); Mean Platelet Volume 8.9; Monocytes # (A) 0.4 k/uL (0-1.0); Monocytes % (A) 4 %; Neutrophils # (A) 6.8 k/uL (1.3-7.7); Neutrophils % (A) 81 %; RBC 4.11 m/uL (3.80-5.40); RDW 13.9 % (11.5-15.5); WBC 8.3 k/uL (3.8-10.6); WBC (Perox) 8.65
--- NOTE | 2016-07-26 10:18 | XR ---
2 view abdomen HISTORY: Nausea, pain 2 views the abdomen correlated to prior exam 26 June 2016 No significant interval change is evident. IMPRESSION: Stable exam, no acute abnormality.
[2016-07-26 10:23] LABS: Potassium 4.3 mmol/L (3.5-5.1); Total Bilirubin 0.6 mg/dL (0.2-1.3); Total Protein 6.1 g/dL (6.3-8.2)
[2016-07-26 11:09] LABS: Appearance,Urine Clear (Clear); Bacteria,Urine Rare /hpf; Bilirubin,Urine Negative (Negative); Glucose,Urine (UA) Negative (Negative); Ketones,Urine 1+ (Negative); Leukocyte Esterase,Urine Moderate (Negative); Mucus,Urine Rare /hpf; Nitrite,Urine Negative (Negative); PH, Urine 5.5 (5.0-8.0); Particle Count 3588; Protein,Urine Negative (Negative); RBC,Urine <1 /hpf (0-5); Specific Gravity,Urine 1.006 (1.001-1.035); Squamous Epithelial Cell,Urine 2 /hpf (0-4); UA Billing (MACRO vs. MICRO) MICRO; Urobilinogen,Urine <2.0 mg/dL (<2.0); WBC,Urine 1 /hpf (0-5)
[2016-07-26] MEDS ORDERED: NALOXONE 0.4 MG/ML 1 ML VIAL IV PRN (11:59)
[2016-07-26] MEDS ORDERED: ONDANSETRON 4 MG/2 ML VIAL IVP PRN (11:59)
[2016-07-26] MEDS: HYDROmorphone 1 MG/ML 1 ML SYRINGE IV PRN ×3 (12:23→18:37)
[2016-07-26 13:37] VITALS: BMI 25.7
[2016-07-26] MEDS ORDERED: POLYETHYLENE GLYCOL 3350 17 GM POWD.PACK PO PRN (14:06)
[2016-07-26] MEDS ORDERED: LACTULOSE 20 GM/30 ML CUP PO PRN (14:07)
[2016-07-26] MEDS ORDERED: BISACODYL 10 MG SUPP RECTAL STA (14:07)
[2016-07-26] MEDS ORDERED: PREGABALIN 50 MG CAP PO PRN (14:08)
[2016-07-26] MEDS: SODIUM CHLORIDE 0.9% 1,000 ML IV SCH ×2 (15:39→23:36)
--- NOTE | 2016-07-26 18:56 | HP ---
DATE OF ADMISSION: 07/26/2016 Patient is a 56-year-old female with a history of ovarian cancer who came into the emergency room with increased abdominal pain and swelling and patient does have ascites. Along with that, patient appears to have been constipated and moved her bowels about 2 days ago. Patient has previous paracentesis about 2 weeks ago. Patient is supposed to get hysterectomy in [facility]. The patient is complaining of increased abdominal pain about 8/10 in severity. Patient is on multiple narcotic medications for pain. Patient is admitted basically for abdominal distention pain, abdominal x-ray did not show any significant abnormality, although clinically patient's abdomen is tympanic, as well as the patient does have ascites as well as along some shifting dullness which is probably causing her pain which is sharp in nature, diffuse without any tenderness. Patient denied any fever or chills. The patient denied any dysuria, nausea, vomiting. Patient is constipated. Her last bowel movement was about 2 to 3 days ago. REVIEW OF SYSTEMS: CONSTITUTIONAL: No fever, no malaise, no fatigue. HEENT: No recent visual problems or hearing problems. Denied any sore throat. CARDIOVASCULAR: No chest pain, orthopnea, PND, no palpitations, no syncope. PULMONARY: No shortness of breath, no cough, no hemoptysis. GASTROINTESTINAL: as described in HPI. NEUROLOGICAL: No headaches, no weakness, no numbness. HEMATOLOGICAL: Denies any bleeding or petechiae. GENITOURINARY: Denies any burning micturition, frequency, or urgency. MUSCULOSKELETAL/RHEUMATOLOGICAL: Denies any joint pain, swelling, or any muscle pain. ENDOCRINE: Denies any polyuria or polydipsia. The rest of the 14 point review of systems is negative. Home medications include: 1. BuSpar. 2. Levetiracetam. 3. Hydrocodone. 4. Acetaminophen. 5. Lyrica. 6. Nitrofurantoin. 7. Docusate. 8. Sertraline. 9. Padroni. ALLERGIES: PENICILLIN. Past medical history significant for: 1. Ovarian cancer. 2. Seizure disorder. 3. section. 4. Tonsillectomy. 5. Tubal ligation surgery. 6. Anxiety. 7. Depression. SOCIAL HISTORY: Former smoker. Quit smoking in 1976. FAMILY HISTORY: Father had CVA, diabetes mellitus, hypertension, mother history is unknown. PHYSICAL EXAMINATION: Temperature 97.4, pulse of 82, respiratory rate of 18, blood pressure is 132/60, saturating at 98% on room air. GENERAL: The patient is alert and oriented x3, not in any acute distress. Well developed, well nourished. HEENT: Pupils are round and equally reacting to light. EOMI. No scleral icterus. No conjunctival pallor. Normocephalic, atraumatic. No pharyngeal erythema. No thyromegaly. CARDIOVASCULAR: S1 and S2 present. No murmurs, rubs, or gallops. PULMONARY: Chest is clear to auscultation, no wheezing or crackles. ABDOMEN: Abdomen is distended, nontender, tympanic and patient does have some shifting dullness as well. MUSCULOSKELETAL: No joint swelling or deformity. EXTREMITIES: No cyanosis, clubbing, or pedal edema. NEUROLOGICAL: Gross neurological examination did not reveal any focal deficits. SKIN: No rashes. LABORATORY DATA: CBC, CMP are abnormal for elevated creatinine of 1.3. Baseline is around 1.1. ASSESSMENT AND PLAN: 1. Severe abdominal pain mostly related to constipation. We will try and use suppository and see if patient can move her bowels. Patient is on multiple opiate medications, which we have to continue because of ( ) metastasis and severe pain and those will be continued. 2. Acute renal failure due to intravascular volume depletion. Patient will be started on IV fluid at 100 mL an hour. 3. 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 4. Hypertension. 5. Seizure disorder. For the above mentioned chronic medical problems, I will go ahead and continue her home medications. Patient has history of ovarian cancer, for which patient will ( ). Regarding hypertension, I will go ahead and continue her Lisinopril and for her chronic medical problems I will go ahead and continue her home medications. Recheck BMP tomorrow and we will also obtain ultrasound guided paracentesis on this hospitalization if we can or else patient will be scheduled for that as an outpatient.
[2016-07-26] MEDS: FAMOTIDINE 20 MG TAB PO SCH (20:12)
[2016-07-26] MEDS: DOCUSATE 100 MG CAP PO SCH (20:12)
[2016-07-26] MEDS: levETIRAcetam 500 MG TAB PO SCH (20:12)
[2016-07-26] MEDS: busPIRone HCl 10 MG TAB PO SCH (20:52)
[2016-07-26] MEDS ORDERED: BUSPIRONE HCL PO SCH (21:00)
[2016-07-26] MEDS ORDERED: busPIRone HCl 10 MG TAB PO SCH (21:00)
[2016-07-26] MEDS: KETOROLAC 30 MG/ML 1 ML VIAL IVP PRN (21:40)
[2016-07-27] MEDS: HYDROmorphone 1 MG/ML 1 ML SYRINGE IV PRN ×4 (02:01→16:26)
[2016-07-27] MEDS: KETOROLAC 30 MG/ML 1 ML VIAL IVP PRN ×3 (04:08→13:52)
[2016-07-27] MEDS ORDERED: BISACODYL 5 MG TABLET.DR PO ONE (06:00)
[2016-07-27 07:11] LABS: Calcium 7.9 mg/dL (8.4-10.2); Potassium 4.5 mmol/L (3.5-5.1); Total Bilirubin 0.4 mg/dL (0.2-1.3); Total Protein 5.5 g/dL (6.3-8.2)
[2016-07-27 07:31] LABS: Basophils % (A) 1 %; CH 27.6; CHCM 28.9; Eosinophils # (A) 0.1 k/uL (0-0.7); Eosinophils % (A) 1 %; HCT 35.2 % (34.0-46.0); HDW 2.88; HGB 10.4 gm/dL (11.4-16.0); Hypochromasia Marked; Luc # (Auto) 0.18; Luc % (Auto) 3; Lymphocytes # (A) 1.2 k/uL (1.0-4.8); Lymphocytes % (A) 16 %; MCH 28.2 pg (25.0-35.0); MCHC 29.5 g/dL (31.0-37.0); MCV 95.5 fL (80.0-100.0); Mean Platelet Volume 8.7; Monocytes # (A) 0.5 k/uL (0-1.0); Monocytes % (A) 7 %; Neutrophils # (A) 5.4 k/uL (1.3-7.7); Neutrophils % (A) 73 %; RBC 3.69 m/uL (3.80-5.40); RDW 13.8 % (11.5-15.5); WBC 7.4 k/uL (3.8-10.6); WBC (Perox) 6.88
[2016-07-27] MEDS: busPIRone HCl 10 MG TAB PO SCH ×2 (08:39→19:46)
[2016-07-27] MEDS: FAMOTIDINE 20 MG TAB PO SCH (08:40)
[2016-07-27] MEDS: levETIRAcetam 500 MG TAB PO SCH ×2 (08:40→19:46)
[2016-07-27] MEDS: SERTRALINE 50 MG TAB PO SCH (08:40)
[2016-07-27] MEDS: DOCUSATE 100 MG CAP PO SCH ×2 (08:41→19:46)
[2016-07-27] MEDS: SODIUM CHLORIDE 0.9% 1,000 ML IV SCH (09:17)
[2016-07-27] MEDS: NITROFURANTOIN MONOHYD/M-CRYST 100 MG CAP PO SCH (12:44)
[2016-07-27] MEDS ORDERED: ALPRAZolam 0.25 MG TAB PO PRN (15:10)
[2016-07-27] MEDS: HYDROcodone/APAP 10-325MG 1 EACH TAB PO PRN (19:35)
[2016-07-28] MEDS: HYDROmorphone 1 MG/ML 1 ML SYRINGE IV PRN ×5 (03:44→19:37)
[2016-07-28 05:38] LABS: INR 1.2 (<1.1); Prothrombin Time 11.7 sec (9.0-12.0)
--- NOTE | 2016-07-28 05:51 | PN ---
The patient did have multiple bowel movements yesterday. The patient was admitted with abdominal pain secondary to ascites, peritoneal metastasis of her ovarian cancer and constipation. Constipation, although resolved. Patient will undergo ultrasound guided paracentesis tomorrow after which patient will be discharged. REVIEW OF SYSTEMS: GENERAL: As described in HPI. CARDIOVASCULAR: No chest pain, no orthopnea, no PND, no palpitations. PULMONARY: Denied any shortness of breath. No cough or hemoptysis. GASTROINTESTINAL: No diarrhea, nausea or vomiting. No abdominal pain. Normoactive bowel sounds. NEUROLOGIC: No headaches, no weakness, no numbness. The patient has continued pain. Medications were reviewed. PHYSICAL EXAMINATION: Temperature 98.2, pulse of 95, respiratory rate of 16, blood pressure is 129/66, saturating at 94% on room air. GENERAL: The patient is alert and oriented x3, not in any acute distress. Well developed, well nourished. HEENT: Pupils are round and equally reacting to light. EOMI. No scleral icterus. No conjunctival pallor. Normocephalic, atraumatic. No pharyngeal erythema. No thyromegaly. CARDIOVASCULAR: S1 and S2 present. No murmurs, rubs, or gallops. PULMONARY: Chest is clear to auscultation, no wheezing or crackles. ABDOMEN: The patient's abdomen is still distended. Minimal diffuse tenderness. No rebound or rigidity. The patient does have shifting dullness. The patient's abdomen is not tympanic anymore. MUSCULOSKELETAL: No joint swelling or deformity. EXTREMITIES: No cyanosis, clubbing, or pedal edema. NEUROLOGICAL: Gross neurological examination did not reveal any focal deficits. SKIN: No rashes. LABORATORY DATA: BUN and creatinine remains stable at 12 and 1.38. ASSESSMENT AND PLAN: 1. Severe abdominal pain due to above-mentioned reasons, a possible ultrasound-guided paracentesis tomorrow. 2. 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 Kidney function did not improve with IV fluids. IV fluids will be discontinued because of hyperchloremia. 3. Hypertension. 4. Seizure disorder for which I will go ahead and continue her home medications. 5. Patient has ovarian cancer for which patient is scheduled for hysterectomy on in [facility].
[2016-07-28] MEDS: levETIRAcetam 500 MG TAB PO SCH ×2 (07:35→20:51)
[2016-07-28] MEDS: FAMOTIDINE 20 MG TAB PO SCH (07:35)
[2016-07-28] MEDS: busPIRone HCl 10 MG TAB PO SCH ×2 (07:35→20:50)
[2016-07-28] MEDS: DOCUSATE 100 MG CAP PO SCH ×2 (07:35→20:50)
[2016-07-28] MEDS: SERTRALINE 50 MG TAB PO SCH (07:35)
--- NOTE | 2016-07-28 20:07 | PN ---
Patient is awaiting therapeutic paracentesis tomorrow and patient is still having abdominal pain. REVIEW OF SYSTEMS: CARDIOVASCULAR: No chest pain, no orthopnea, no PND, no palpitations. PULMONARY: Denied any shortness of breath. No cough or hemoptysis. GASTROINTESTINAL: As described in HPI. NEUROLOGIC: No headaches, no weakness, no numbness. Medications are reviewed. PHYSICAL EXAMINATION: VITAL SIGNS: Temperature 96.6, pulse of 104, respiratory rate 20, blood pressure 131/78, saturating at 91% on room air. GENERAL: The patient is alert and oriented x3, not in any acute distress. Well developed, well nourished. HEENT: Pupils are round and equally reacting to light. EOMI. No scleral icterus. No conjunctival pallor. Normocephalic, atraumatic. No pharyngeal erythema. No thyromegaly. CARDIOVASCULAR: S1 and S2 present. No murmurs, rubs, or gallops. PULMONARY: Chest is clear to auscultation, no wheezing or crackles. ABDOMEN: Unchanged compared to yesterday. MUSCULOSKELETAL: No joint swelling or deformity. EXTREMITIES: No cyanosis, clubbing, or pedal edema. NEUROLOGICAL: Gross neurological examination did not reveal any focal deficits. SKIN: No rashes. LABORATORY DATA: None available. ASSESSMENT AND PLAN: 1. Abdominal pain secondary to ascites and peritoneal metastasis along with constipation, constipation resolved. 2. Chronic kidney disease Stage III secondary to hypertensive nephrosclerosis. 3. Hypertension. 4. Seizure disorder. PLAN: Continue with present medications. Pain medications. Possibility of paracentesis tomorrow. After that, the patient will be discharged.
[2016-07-29] MEDS: HYDROmorphone 1 MG/ML 1 ML SYRINGE IV PRN ×2 (05:43→08:52)
[2016-07-29] MEDS: levETIRAcetam 500 MG TAB PO SCH (08:02)
[2016-07-29] MEDS: DOCUSATE 100 MG CAP PO SCH (08:02)
[2016-07-29] MEDS: busPIRone HCl 10 MG TAB PO SCH (08:02)
[2016-07-29] MEDS: SERTRALINE 50 MG TAB PO SCH (08:03)
[2016-07-29] MEDS: FAMOTIDINE 20 MG TAB PO SCH (08:03)
[2016-07-29 08:17] VITALS: TEMP 97.7
[2016-07-29 08:28] LABS: CH 27.8; HCT 33.6 % (34.0-46.0); HDW 2.89; HGB 10.4 gm/dL (11.4-16.0); Hypochromasia Marked; MCH 28.5 pg (25.0-35.0); MCHC 30.8 g/dL (31.0-37.0); MCV 92.6 fL (80.0-100.0); Mean Platelet Volume 8.6; RBC 3.63 m/uL (3.80-5.40); RDW 14.1 % (11.5-15.5)
[2016-07-29 08:29] LABS: INR 1.2 (<1.1); Prothrombin Time 11.8 sec (9.0-12.0)
[2016-07-29 08:40] LABS: Calcium 8.1 mg/dL (8.4-10.2); Potassium 4.6 mmol/L (3.5-5.1)
[2016-07-29 12:04] VITALS: RESP 18
[2016-07-29 12:48] VITALS: BP 148/63; PULSE 101
[2016-07-29] MEDS: HYDROcodone/APAP 10-325MG 1 EACH TAB PO PRN (13:00)
--- NOTE | 2016-07-29 14:09 | US ---
EXAMINATION TYPE: US paracentesis abd w/image DATE OF EXAM: 07/29/2016 COMPARISON: NONE HISTORY: Ascites. PROCEDURE: Maximal barrier technique was utilized. The skin overlying a suitable pocket of fluid was localized with ultrasound and the overlying skin was prepped and draped. Ultrasound was utilized with sterile technique. Lidocaine was used for local anesthesia and a skin joana made with a scalpel. Catheter was advanced under direct ultrasound guidance into a suitable pocket of fluid and approximately 7 liters of cloudy nakul fluid were removed. Catheter was withdrawn and hemostasis achieved. There is no imm ediate complication; the patient is discharged in stable condition. IMPRESSION: STATUS POST ULTRASOUND GUIDED PARACENTESIS FOR PALLIATION OF ASCITES. THIS PROCEDURE WA S PERFORMED BY THE UNDERSIGNED.
--- NOTE | 2016-07-30 12:23 | DS ---
DATE OF ADMISSION: 07/26/2016 DATE OF DISCHARGE: 07/29/2016 Patient felt much better after therapeutic paracentesis. Patient came in with abdominal pain secondary to severe arthritis, constipation as well as peritoneal metastasis from her ovarian cancer. Patient felt much better paracentesis. Patient had bowel movement. Patient is otherwise clinically doing well, will be discharged today. Patient will need to follow with [facility] tomorrow for hysterectomy. Patient was seen and examined on the day of discharge. Vitals are stable. PHYSICAL EXAMINATION: ABDOMEN: Ascites improved significantly, abdominal pain and tenderness improved significantly after therapeutic paracentesis. GENERAL: The patient is alert and oriented x3, not in any acute distress. Well developed, well nourished. HEENT: Pupils are round and equally reacting to light. EOMI. No scleral icterus. No conjunctival pallor. Normocephalic, atraumatic. No pharyngeal erythema. No thyromegaly. CARDIOVASCULAR: S1 and S2 present. No murmurs, rubs, or gallops. PULMONARY: Chest is clear to auscultation, no wheezing or crackles. MUSCULOSKELETAL: No joint swelling or deformity. EXTREMITIES: No cyanosis, clubbing, or pedal edema. NEUROLOGICAL: Gross neurological examination did not reveal any focal deficits. SKIN: No rashes. ASSESSMENT AND PLAN: 1. Abdominal pain secondary to above-mentioned reasons. 2. Chronic kidney disease stage II secondary to hypertensive nephrosclerosis. 3. Hypertension. 4. Seizure disorder. 5. 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 The patient will be discharged today. Please refer to my depart summary for further details of discharge medications. Activity as tolerated. Cardiac diet. Follow up with Dr. Vilchis in 3 to 7 days, once she is discharged from [facility]. Spent greater than 35 minutes in total discharge process.
== END 2016-07-29 13:45 | disposition home or self-care (01) ==
LOC: EC 09:19 → 5ONC 11:57
PROVIDERS: ADMIT Hospitalist; ATTEND Hospitalist
DX: R18.8 Other ascites (principal); K59.00 Constipation, unspecified; C78.6 Secondary malignant neoplasm of retroperitoneum and peritoneum; C56.9 Malignant neoplasm of unspecified ovary; M13.0 Polyarthritis, unspecified; M54.5 Low back pain; G89.29 Other chronic pain; H91.93 Unspecified hearing loss, bilateral; F41.9 Anxiety disorder, unspecified; F32.9 Major depressive disorder, single episode, unspecified; Z82.49 Family history of ischemic heart disease and other diseases of the circulatory system; G40.909 Epilepsy, unspecified, not intractable, without status epilepticus; N18.3 Chronic kidney disease, stage 3 (moderate); E86.9 Volume depletion, unspecified; I12.9 Hypertensive chronic kidney disease with stage 1 through stage 4 chronic kidney disease, or unspecified chronic kidney disease; N17.9 Acute kidney failure, unspecified; Z79.899 Other long term (current) drug therapy; Z87.891 Personal history of nicotine dependence; Z88.0 Allergy status to penicillin
CPT/HCPCS: 96376 ×8; 96361 ×3; 96375 ×2; 96374; 99285; 36415; 80053 ×2; 80048; 82150; 83690; 85025 ×2; 85027; 85049; 85610 ×2; 81001; 74020; 49083; G0378 ×4; J2405 ×2; J1885 ×2; J1170 ×4

== ENCOUNTER 2016-08-11 10:14 | Day surgery (SDC) | payer MEDICARE, OTHER ==
[2016-08-06 15:45] VITALS: BMI 30.2
[~2016-08-11 10:14] MED LIST: HEPARIN SODIUM,PORCINE 5,000 UNIT/ML 1 ML VIAL SQ ONE; HYDROmorphone 1 MG/ML 1 ML SYRINGE IVP PRN; LACTATED RINGERS 1,000 ML IV SCH; LIDOCAINE 1% 20 ML VIAL (10MG/ML) FOR IV START INTRADERMA PRN; ceFAZolin 2 GM in SODIUM CHLORIDE 0.9% 100 ML IVPB ONE
[2016-08-11] MEDS ORDERED: LACTATED RINGERS 1,000 ML IV ONE (10:57)
[2016-08-11] MEDS ORDERED: DEXAMETHASONE SOD PHOS (MDV) 100 MG/10 ML VIAL IVP ONE (10:58)
[2016-08-11] MEDS ORDERED: ONDANSETRON 4 MG/2 ML VIAL IVP ONE (10:58)
--- NOTE | 2016-08-11 11:41 | P.GSHP ---
History of Present Illness H&P Date: 08/11/16 Chief Complaint: Ovarian cancer This a 56-year-old female who has a diagnosis of ovarian cancer. Patient rents today for Port-A-Cath insertion. - Constitutional Constitutional: Reports as per HPI Past Medical History Past Medical History: Cancer, Eye Disorder, Hypertension, Osteoarthritis (OA), Renal Disease, Seizure Disorder Additional Past Medical History / Comment(s): ovarian CA, LAST SEIZURE 2014. chronic low back pain, generalized arthritis, renal insufficiency, chronic anemia, glaucoma bilaterally with surgery, RECENT ATTEMPTED OPEN HYSTERECTOMY, INCISION HEALING History of Any Multi-Drug Resistant Organisms: None Reported Past Surgical History: Section, Tonsillectomy, Tubal Ligation Additional Past Surgical History / Comment(s): ATTEMPTED OPEN HYSTERECTOMY, PARACENTESIS, Buttock abcess with surgery, lasik eye surgery bilaterally for glaucoma. Past Anesthesia/Blood Transfusion Reactions: No Reported Reaction Past Psychological History: Anxiety, Depression Additional Psychological History / Comment(s): She attended special education while in school. She can read and write, minimally. Smoking Status: Former smoker Past Alcohol Use History: None Reported Additional Past Alcohol Use History / Comment(s): Pt started smoking in 1976, quit smoking in may 2016 Past Drug Use History: Marijuana Additional Drug Use History / Comment(s): Occasional marijuana use. INSTRUCTED NOT TO USE 24 HRS PRIOR TO PROCEDURE - Past Family History Father Family Medical History: CVA/TIA, Diabetes Mellitus, Hypertension Additional Family Medical History / Comment(s): Father at the age of 65yrs. Mother Family Medical History: No Reported History Additional Family Medical History / Comment(s): . Medications and Allergies Home Medications Medication Instructions Recorded Confirmed Type busPIRone HCL [Buspar] 30 mg PO BID 08/23/13 08/06/16 History levETIRAcetam [Keppra] 500 mg PO BID 08/23/13 08/06/16 History Pregabalin [Lyrica] 50 mg PO BID PRN 06/10/16 08/06/16 History busPIRone HCl [Buspar] 10 mg PO BID 07/26/16 08/06/16 History HYDROcodone/APAP 7.5-325MG [[place] 1 tab PO Q4H PRN 08/06/16 08/11/16 History 7.5-325] Allergies Allergy/AdvReac Type Severity Reaction Status Date / Time Penicillins Allergy Rash/Hives Verified 08/06/16 15:35 Surgical - Exam Vital Signs Temp Pulse Resp BP 97.4 F L 98 18 145/81 08/11/16 10:47 08/11/16 10:47 08/11/16 10:47 08/11/16 10:47 - General well developed, no distress - Eyes PERRL - ENT normal pinna - Neck no masses - Respiratory normal expansion - Cardiovascular Rhythm: regular - Abdomen Abdomen: soft, non tender Assessment and Plan Plan: Ovarian cancer. We'll perform Port-A-Cath insertion.
[2016-08-11] MEDS ORDERED: LIDOCAINE 1% INJ 10MG/ML (20 ML MDV) ONE (11:59)
[2016-08-11] MEDS ORDERED: PROPOFOL 10 MG/ML 20 ML VIAL IV ONE (11:59)
[2016-08-11] MEDS ORDERED: fentaNYL (PF) 50 MCG/ML 2 ML AMP ONE (11:59)
[2016-08-11] MEDS ORDERED: MIDAZOLAM 2 MG/2 ML VIAL ONE (11:59)
[2016-08-11] MEDS ORDERED: BUPIVACAIN-EPI 0.25%-1:200,000 30 ML VIAL SQ ONE (12:23)
[2016-08-11] MEDS ORDERED: IOHEXOL 180 MG/ML 1 ML ML MISCELLANE ONE (12:23)
[2016-08-11] MEDS ORDERED: HEPARIN SODIUM,PORCINE 100 UNIT/ML 5 ML VIAL IV ONE (12:23)
--- NOTE | 2016-08-11 12:48 | P.OP ---
Date of Procedure: 08/11/16 Preoperative Diagnosis: Ovarian cancer Postoperative Diagnosis: Ovarian cancer Procedure(s) Performed: Right subclavian Port-A-Cath Implants: Anesthesia: MAC Surgeon: Brandon Hamilton Estimated Blood Loss (ml): 5 Pathology: none sent Condition: stable Disposition: PACU Indications for Procedure: Operative Findings: Description of Procedure: MPROCEDURE: The patient was placed on the operating table in the supine position. She received MAC anesthetic. The [RIGHT] chest was prepped and draped in the usual sterile fashion. The skin underneath the right clavicle was anesthetized with 1% Xylocaine and using Seldinger technique, the right subclavian vein was cannulized. The wire was placed through the needle and positioned under fluoroscopy. Next, the needle was removed and the port site was anesthetized with 1% Xylocaine. Skin was incised with #15 blade and port pocket was made using blunt and sharp dissection. Following this the catheter was attached to the sport and the port was flushed. The port was positioned into the pocket site and was secured with 3-0 Vicryl suture. The catheter was then brought out through the wire site and then the dilator sheath was placed over the wire and the dilator and the wire were removed. The catheter was placed through the sheath and the sheath was removed. The port was flushed with hep-lock solution. Skin was closed with interrupted 3-0 Vicryl sutures. Steri-Strips were applied. The patient tolerated the procedure well. The patient was sent to recovery room for chest x-ray after the procedure.
[2016-08-11 13:07] VITALS: TEMP 97.2
[2016-08-11 13:10] VITALS: RESP 16
--- NOTE | 2016-08-11 13:24 | XR ---
EXAMINATION TYPE: XR chest 1V DATE OF EXAM: 08/11/2016 COMPARISON: 06/18/2016 INDICATION: Catheter placement TECHNIQUE: Single frontal view of the chest is obtained. FINDINGS: The heart size is normal. The pulmonary vasculature is normal. Some streak atelectasis is within the lingula. Port is present on the right with the tip in the superior vena cava region. IMPRESSION: 1. No pneumothorax post line placement. Tip is in superior vena cava region. 2. Mild atelectasis lingula.
[2016-08-11 14:00] VITALS: BP 99/66
[2016-08-11 14:09] VITALS: PULSE 67
[2016-08-11] MEDS ORDERED: IV FLUID CONTINUATION 1,000 ML IV ONE (14:10)
--- NOTE | 2016-08-11 17:31 | FL ---
Fluoroscopy INDICATION: Pain FINDINGS: Fluoroscopy time: 6 seconds. Images obtained: 0. IMPRESSIONS: 1. Documentation of fluoroscopy.
== END 2016-08-11 14:17 | disposition home or self-care (01) ==
LOC: OR 10:14
PROVIDERS: ATTEND Surgery
DX: C56.9 Malignant neoplasm of unspecified ovary (principal); F32.9 Major depressive disorder, single episode, unspecified; F41.9 Anxiety disorder, unspecified; G40.909 Epilepsy, unspecified, not intractable, without status epilepticus; G89.29 Other chronic pain; I10 Essential (primary) hypertension; M19.90 Unspecified osteoarthritis, unspecified site; M54.5 Low back pain; Z87.891 Personal history of nicotine dependence; Z88.0 Allergy status to penicillin
CPT/HCPCS: 77001; 71010; 36571; C1788; J2250; J1644; J1642; Q9965; J0690; J2405; J2001; J3010; J1100; J2704

== ENCOUNTER 2016-08-24 09:10 | Inpatient (IN) | payer MEDICARE, OTHER ==
--- NOTE | 2016-08-24 09:21 | ED ---
General Adult HPI - General Stated complaint: Altered Mental Status Time Seen by Provider: 08/24/16 09:14 Source: RN notes reviewed - History of Present Illness Initial comments: This is a 36-year-old female ER for evaluation. This patient does present today for evaluation of altered mental status. Acting appropriately, 3 days. Patient has no chest pain or shortness of breath. No fevers. Some medication changes and patient is grossly going through chemotherapy for ovarian cancer. No history of brain metastasis. Patient states she is not feeling well, feels sick. No abdominal pain, occasional back pain and headache - Related Data Home Medications Medication Instructions Recorded Confirmed busPIRone HCL [Buspar] 30 mg PO BID 08/23/13 08/24/16 levETIRAcetam [Keppra] 500 mg PO BID 08/23/13 08/24/16 Pregabalin [Lyrica] 50 mg PO BID PRN 06/10/16 08/24/16 busPIRone HCl [Buspar] 10 mg PO BID 07/26/16 08/24/16 HYDROcodone/APAP 7.5-325MG [[place] 1 tab PO Q4H PRN 08/06/16 08/24/16 7.5-325] Previous Rx's Medication Instructions Recorded Docusate [Colace] 100 mg PO BID #60 cap 06/23/16 Sertraline [Zoloft] 50 mg PO DAILY #30 tab 06/23/16 fentaNYL 50MCG/HR PATCH [[place] 1 patch TRANSDERM Q72H #10 patch 07/02/16 50MCG/HR] Lactulose [Cephulac] 20 gm PO BID PRN #300 ml 07/29/16 Allergies Allergy/AdvReac Type Severity Reaction Status Date / Time Penicillins Allergy Rash/Hives Verified 08/24/16 09:34 Review of Systems ROS Statement: Those systems with pertinent positive or pertinent negative responses have been documented in the HPI. ROS Other: All systems not noted in ROS Statement are negative. Past Medical History Past Medical History: Cancer, Eye Disorder, Hypertension, Osteoarthritis (OA), Renal Disease, Seizure Disorder Additional Past Medical History / Comment(s): ovarian CA, LAST SEIZURE 2014. chronic low back pain, generalized arthritis, renal insufficiency, chronic anemia, glaucoma bilaterally with surgery, RECENT ATTEMPTED OPEN HYSTERECTOMY, INCISION HEALING History of Any Multi-Drug Resistant Organisms: None Reported Past Surgical History: Section, Tonsillectomy, Tubal Ligation Additional Past Surgical History / Comment(s): ATTEMPTED OPEN HYSTERECTOMY, PARACENTESIS, Buttock abcess with surgery, lasik eye surgery bilaterally for glaucoma. Past Anesthesia/Blood Transfusion Reactions: No Reported Reaction Past Psychological History: Anxiety, Depression Additional Psychological History / Comment(s): She attended special education while in school. She can read and write, minimally. Smoking Status: Former smoker Past Alcohol Use History: None Reported Additional Past Alcohol Use History / Comment(s): Pt started smoking in 1976, quit smoking in may 2016 Past Drug Use History: Marijuana Additional Drug Use History / Comment(s): Occasional marijuana use. INSTRUCTED NOT TO USE 24 HRS PRIOR TO PROCEDURE - Past Family History Father Family Medical History: CVA/TIA, Diabetes Mellitus, Hypertension Additional Family Medical History / Comment(s): Father at the age of 65yrs. Mother Family Medical History: No Reported History Additional Family Medical History / Comment(s): . General Exam General appearance: alert, in no apparent distress Head exam: Present: atraumatic, normocephalic, normal inspection Eye exam: Present: normal appearance, PERRL, EOMI. Absent: scleral icterus, conjunctival injection, periorbital swelling ENT exam: Present: normal exam, mucous membranes moist Neck exam: Present: normal inspection. Absent: tenderness, meningismus, lymphadenopathy Respiratory exam: Present: normal lung sounds bilaterally. Absent: respiratory distress, wheezes, rales, rhonchi, stridor Cardiovascular Exam: Present: regular rate, normal rhythm, normal heart sounds. Absent: systolic murmur, diastolic murmur, rubs, gallop, clicks GI/Abdominal exam: Present: soft, normal bowel sounds. Absent: distended, tenderness, guarding, rebound, rigid Extremities exam: Present: normal inspection, full ROM, normal capillary refill. Absent: tenderness, pedal edema, joint swelling, calf tenderness Back exam: Present: normal inspection Neurological exam: Present: alert, oriented X3, CN II-XII intact Psychiatric exam: Present: normal affect, normal mood Skin exam: Present: warm, dry, intact, normal color. Absent: rash Course Vital Signs 08/24/16 08/24/16 09:20 10:22 Temperature 97.8 F Pulse Rate 101 H 76 Respiratory 18 16 Rate Blood Pressure 152/72 108/54 O2 Sat by Pulse 99 100 Oximetry - Reevaluation(s) Reevaluation #1: 08/24/16 11:20 Patient with no clinical change EKG Findings - EKG Comments: EKG Findings:: EKG shows normal sinus of 88, GA 118, QRS 80, QTC 476 Medical Decision Making - Medical Decision Making 56 female in the ER for evaluation regarding altered mental status, 3 days, likely brain metastasis versus CVA, patient be admitted for neurological and psychological evaluation, MRI, hemodynamic support, IV hydration secondary to dehydration and steroids for brain edema - Lab Data Result diagrams: 08/24/16 09:30 08/24/16 09:30 Lab Results 08/24/16 08/24/16 08/24/16 Range/Units 09:20 09:30 09:30 WBC 7.8 (3.8-10.6) k/uL RBC 3.45 L (3.80-5.40) m/uL Hgb 9.1 L (11.4-16.0) gm/dL Hct 31.1 L (34.0-46.0) % MCV 90.2 (80.0-100.0) fL MCH 26.3 (25.0-35.0) pg MCHC 29.1 L (31.0-37.0) g/dL RDW 15.0 (11.5-15.5) % Plt Count 105 L D (150-450) k/uL Neutrophils % 87 % Lymphocytes % 10 % Monocytes % 1 % Eosinophils % 1 % Basophils % 0 % Neutrophils # 6.8 (1.3-7.7) k/uL Lymphocytes # 0.8 L (1.0-4.8) k/uL Monocytes # 0.1 (0-1.0) k/uL Eosinophils # 0.1 (0-0.7) k/uL Basophils # 0.0 (0-0.2) k/uL Hypochromasia Marked PT (9.0-12.0) sec INR (<1.1) APTT (22.0-30.0) sec Sodium (137-145) mmol/L Potassium (3.5-5.1) mmol/L Chloride (98-107) mmol/L Carbon Dioxide (22-30) mmol/L Anion Gap mmol/L BUN (7-17) mg/dL Creatinine (0.52-1.04) mg/dL Est GFR (MDRD) Af Amer (>60 ml/min/1.73 sqM) Est GFR (MDRD) Non-Af (>60 ml/min/1.73 sqM) Glucose (74-99) mg/dL Plasma Lactic Acid Nilesh (0.7-2.0) mmol/L Calcium (8.4-10.2) mg/dL Phosphorus (2.5-4.5) mg/dL Magnesium (1.6-2.3) mg/dL Total Bilirubin (0.2-1.3) mg/dL AST (14-36) U/L ALT (9-52) U/L Alkaline Phosphatase (38-126) U/L Ammonia (<30) umol/L Total Creatine Kinase 134 (30-135) U/L CK-MB (CK-2) 1.6 (0.0-2.4) ng/mL CK-MB (CK-2) Rel Index 1.2 Troponin I 0.342 H* (0.000-0.034) ng/mL Total Protein (6.3-8.2) g/dL Albumin (3.5-5.0) g/dL TSH (0.465-4.680) mIU/L Urine Color Yellow Urine Appearance Cloudy H (Clear) Urine pH 6.0 (5.0-8.0) Ur Specific [place] 1.010 (1.001-1.035) Urine Protein 1+ H (Negative) Urine Glucose (UA) Negative (Negative) Urine Ketones Trace H (Negative) Urine Blood Moderate H (Negative) Urine Nitrite Negative (Negative) Urine Bilirubin Negative (Negative) Urine Urobilinogen <2.0 (<2.0) mg/dL Ur Leukocyte Esterase Moderate H (Negative) Urine RBC 7 H (0-5) /hpf Urine WBC 14 H (0-5) /hpf Ur Squamous Epith Cells 28 H (0-4) /hpf Urine Bacteria Occasional H (None) /hpf Urine Mucus Rare H (None) /hpf 08/24/16 08/24/16 08/24/16 Range/Units 09:30 09:30 09:30 WBC (3.8-10.6) k/uL RBC (3.80-5.40) m/uL Hgb (11.4-16.0) gm/dL Hct (34.0-46.0) % MCV (80.0-100.0) fL MCH (25.0-35.0) pg MCHC (31.0-37.0) g/dL RDW (11.5-15.5) % Plt Count (150-450) k/uL Neutrophils % % Lymphocytes % % Monocytes % % Eosinophils % % Basophils % % Neutrophils # (1.3-7.7) k/uL Lymphocytes # (1.0-4.8) k/uL Monocytes # (0-1.0) k/uL Eosinophils # (0-0.7) k/uL Basophils # (0-0.2) k/uL Hypochromasia PT 10.5 (9.0-12.0) sec INR 1.0 (<1.1) APTT 26.2 (22.0-30.0) sec Sodium 143 (137-145) mmol/L Potassium 4.7 (3.5-5.1) mmol/L Chloride 110 H (98-107) mmol/L Carbon Dioxide 23 (22-30) mmol/L Anion Gap 10 mmol/L BUN 29 H (7-17) mg/dL Creatinine 2.26 H (0.52-1.04) mg/dL Est GFR (MDRD) Af Amer 27 (>60 ml/min/1.73 sqM) Est GFR (MDRD) Non-Af 22 (>60 ml/min/1.73 sqM) Glucose 81 (74-99) mg/dL Plasma Lactic Acid Nilesh 1.1 (0.7-2.0) mmol/L Calcium 7.9 L (8.4-10.2) mg/dL Phosphorus 4.8 H (2.5-4.5) mg/dL Magnesium 2.3 (1.6-2.3) mg/dL Total Bilirubin 0.5 (0.2-1.3) mg/dL AST 46 H (14-36) U/L ALT 22 (9-52) U/L Alkaline Phosphatase 65 (38-126) U/L Ammonia <9 (<30) umol/L Total Creatine Kinase (30-135) U/L CK-MB (CK-2) (0.0-2.4) ng/mL CK-MB (CK-2) Rel Index Troponin I (0.000-0.034) ng/mL Total Protein 6.0 L (6.3-8.2) g/dL Albumin 2.9 L (3.5-5.0) g/dL TSH 12.500 H (0.465-4.680) mIU/L Urine Color Urine Appearance (Clear) Urine pH (5.0-8.0) Ur Specific [place] (1.001-1.035) Urine Protein (Negative) Urine Glucose (UA) (Negative) Urine Ketones (Negative) Urine Blood (Negative) Urine Nitrite (Negative) Urine Bilirubin (Negative) Urine Urobilinogen (<2.0) mg/dL Ur Leukocyte Esterase (Negative) Urine RBC (0-5) /hpf Urine WBC (0-5) /hpf Ur Squamous Epith Cells (0-4) /hpf Urine Bacteria (None) /hpf Urine Mucus (None) /hpf - Radiology Data Radiology results: report reviewed (CT brain shows likely metastasis versus subacute infarct), image reviewed Disposition Clinical Impression: Delirium due to general medical condition, Altered mental status, Intractable abdominal pain, Brain metastases Disposition: ADMITTED IP TO THIS HOSP Condition: Serious Referrals: Sylvester Vilchis MD [Primary Care Provider] - 1-2 days
[2016-08-24] MEDS ORDERED: SODIUM CHLORIDE 0.9% 1,000 ML IV STA ×3 (09:42→10:58)
[2016-08-24] MEDS ORDERED: MORPHINE SULFATE 4 MG/ML SYRINGE IVP STA (09:51)
[2016-08-24] MEDS ORDERED: LORazepam 2 MG/ML SYRINGE IV STA ×2 (09:51→16:13)
[2016-08-24 09:58] LABS: Basophils % (A) 0 %; CH 26.6; CHCM 29.5; Eosinophils # (A) 0.1 k/uL (0-0.7); Eosinophils % (A) 1 %; HCT 31.1 % (34.0-46.0); HDW 2.58; HGB 9.1 gm/dL (11.4-16.0); Hypochromasia Marked; Luc # (Auto) 0.07; Luc % (Auto) 1; Lymphocytes # (A) 0.8 k/uL (1.0-4.8); Lymphocytes % (A) 10 %; MCH 26.3 pg (25.0-35.0); MCHC 29.1 g/dL (31.0-37.0); MCV 90.2 fL (80.0-100.0); Mean Platelet Volume 10.4; Monocytes # (A) 0.1 k/uL (0-1.0); Monocytes % (A) 1 %; Neutrophils # (A) 6.8 k/uL (1.3-7.7); Neutrophils % (A) 87 %; RBC 3.45 m/uL (3.80-5.40); WBC 7.8 k/uL (3.8-10.6); WBC (Perox) 8.07
[2016-08-24 10:04] LABS: Appearance,Urine Cloudy (Clear); Bacteria,Urine Occasional /hpf; Bilirubin,Urine Negative (Negative); Glucose,Urine (UA) Negative (Negative); Ketones,Urine Trace (Negative); Leukocyte Esterase,Urine Moderate (Negative); Mucus,Urine Rare /hpf; Nitrite,Urine Negative (Negative); Particle Count 41561; Protein,Urine 1+ (Negative); RBC,Urine 7 /hpf (0-5); Squamous Epithelial Cell,Urine 28 /hpf (0-4); UA Billing (MACRO vs. MICRO) MICRO; Urobilinogen,Urine <2.0 mg/dL (<2.0); WBC,Urine 14 /hpf (0-5)
[2016-08-24 10:08] LABS: Partial Thromboplastin Time 26.2 sec (22.0-30.0); Prothrombin Time 10.5 sec (9.0-12.0)
[2016-08-24 10:11] LABS: Ammonia <9 umol/L (<30)
[2016-08-24 10:15] LABS: Calcium 7.9 mg/dL (8.4-10.2); Magnesium 2.3 mg/dL (1.6-2.3); Phosphorous 4.8 mg/dL (2.5-4.5); Potassium 4.7 mmol/L (3.5-5.1); Total Bilirubin 0.5 mg/dL (0.2-1.3)
[2016-08-24 10:30] LABS: Creatine Kinase MB 1.6 ng/mL (0.0-2.4)
--- NOTE | 2016-08-24 10:30 | CT ---
EXAMINATION TYPE: CT brain wo con DATE OF EXAM: 08/24/2016 COMPARISON: 06/18/2016 HISTORY: 56 year-old female with weakness Altered mental status. History of ovarian cancer. TECHNIQUE: Examination was done in axial plane without intravenous contrast. Coronal and sagittal r econstructions performed. CT DLP: 1091 mGycm Automated exposure control for dose reduction was used. FINDINGS: There is new cortical and subcortical hypodensity right occipitoparietal junction and left posterior parietal lobe which appears new from 06/18/2016. No mass effect or midline shift. No evidence for acute intracranial hemorrhage or extra-axial fluid c ollection. No hydrocephalus. Stable lacunar infarct or prominent perivascular space within the right basal ganglia. Some partial opacification within the right sphenoid sinus is similar from 06/18/2016. Mastoid air kaelyn ls well pneumatized. Orbits and globes are intact. IMPRESSION: New cortical and subcortical hypodensities right occipitoparietal junction and left posterior parieta l lobe as compared to 06/18/2016. Late acute to subacute infarcts should be considered. Given the melodie ent's history of ovarian cancer, consider contrast enhanced MRI to exclude underlying enhancing lesio ns. No acute intracranial hemorrhage or mass effect.
[2016-08-24 10:36] LABS: Troponin I 0.342 ng/mL (0.000-0.034)
[2016-08-24] MEDS ORDERED: DEXAMETHASONE SOD PHOSPHATE 10 MG/ML 1 ML VIAL IV STA (10:58)
[2016-08-24] MEDS ORDERED: SODIUM CHLORIDE 0.9% 500 ML IV STA (10:58)
[2016-08-24] MEDS: SODIUM CHLORIDE 0.9% 1,000 ML IV SCH ×2 (12:00→22:21)
--- NOTE | 2016-08-24 12:34 | CT ---
EXAMINATION TYPE: CT lumbar spine wo con DATE OF EXAM: 08/24/2016 COMPARISON: NONE HISTORY: 56-year-old female poor historian, unresponsive at time of exam, unable to bring arms above head. Pain. TECHNIQUE: Contiguous axial scanning of the lumbar spine without IV contrast. Coronal and sagittal re constructions performed. CT DLP: 1282.9 mGycm Automated exposure control for dose reduction was used. FINDINGS: There is mild to moderate abdominal ascites, with a 1.6 cm gallstone, and atrophic left kidney. Moderate to severe degenerative disc disease at L5-S1 with disc height loss, vacuum phenomenon, endpl ate spondylosis and sclerosis and disc osteophyte complex. This results in [id number] right and mild left neuroforaminal stenosis without significant spin al canal stenosis. Vertebral body heights are preserved and alignment is maintained. Facet arthropathy mid to lower lumbar spine. Mild diffuse disc bulging in the mid to lower lumbar spine. At L4-L5, there is mild diffuse disc bulge and facet arthropathy without significant spinal canal or neuroforaminal stenosis. At L3-L4, similar changes are present without significant spinal canal or neuroforaminal stenosis. At L2-L3, no spinal canal or neuroforaminal stenosis. At L1-L2, no spinal canal or foraminal stenosis. Degenerative disc disease within the lower thoracic spine. IMPRESSION: 1. MILD MULTILEVEL DEGENERATIVE DISC DISEASE. ADDITIONAL FACET ARTHROPATHY MID TO LOWER LUMBAR SPINE. 2. HOWEVER, DEGENERATIVE DISC DISEASE IS MODERATE TO SEVERE AT L5-S1 WITH RESULTANT MILD TO MODERATE RIGHT AND MILD LEFT NEUROFORAMINAL STENOSIS. 3. NO CANAL COMPROMISE, VERTEBRAL COMPRESSION COLLAPSE, OR MALALIGNMENT. 4. NOTE MILD TO MODERATE ABDOMINOPELVIC ASCITES FLUID. CLINICALLY CORRELATE. 5. CHOLELITHIASIS AND ATROPHIC LEFT KIDNEY.
[2016-08-24 13:41] LABS: Glucose,Whole Blood 69 mg/dL (75-99)
[2016-08-24] MEDS ORDERED: HYDROmorphone 1 MG/ML 1 ML SYRINGE IVP PRN ×2 (16:09→18:10)
[2016-08-24] MEDS ORDERED: MORPHINE SULFATE 2 MG/ML SYRINGE IVP STA (16:12)
[2016-08-24] MEDS ORDERED: LORazepam 2 MG/ML SYRINGE ONE (16:17)
[2016-08-24 16:27] LABS: Glucose,Whole Blood 124 mg/dL (75-99)
[2016-08-24] MEDS: levETIRAcetam IV 500 MG in SODIUM CHLORIDE 0.9% 100 ML IVPB SCH ×2 (17:57→22:21)
[2016-08-24] MEDS: DEXAMETHASONE SOD PHOSPHATE 10 MG/ML 1 ML VIAL IV SCH ×2 (17:57→23:33)
--- NOTE | 2016-08-24 18:10 | P.HPIM ---
History of Present Illness H&P Date: 08/24/16 56-year-old female with a recent diagnosis of ovarian cancer with peritoneal carcinomatosis who underwent chemotherapy last for the first time was brought into the hospital by her fianc who stated the patient has not been acting her normal self for the last 48 hours. Patient apparently is more confused has not been able to answer any questions appropriately Patient has a significant amount of pain and has been on multiple pain medications for abdominal distention In the emergency room patient underwent a computed tomography scan of the head which showed multiple areas of infarcts Was of the history is obtained from chart review and patient's family Patient is unable to answer questions however is able to follow some commands appropriately Review of Systems ROS unobtainable: due to mental status Past Medical History Past Medical History: Cancer, Eye Disorder, Hypertension, Osteoarthritis (OA), Renal Disease, Seizure Disorder Additional Past Medical History / Comment(s): Ovarian CA with peritoneal metastasis, has had 3 paracentesis, recent attempted abdominal hysterectomy, tumor too large to remove, started chemotherapy thru port on 08/20/16-has had vomiting and AMS since, LAST SEIZURE 2015, chronic low back pain, generalized arthritis, CKD stage II, chronic anemia, glaucoma bilaterally with surgery, [place] bilaterally. History of Any Multi-Drug Resistant Organisms: None Reported Past Surgical History: Section, Tonsillectomy, Tubal Ligation Additional Past Surgical History / Comment(s): ATTEMPTED OPEN HYSTERECTOMY at [facility], 3 PARACENTESIS, buttock abcess with surgery, lasik eye surgery bilaterally for glaucoma. Past Anesthesia/Blood Transfusion Reactions: No Reported Reaction Smoking Status: Former smoker - Past Family History Father Family Medical History: CVA/TIA, Diabetes Mellitus, Hypertension Additional Family Medical History / Comment(s): Father at the age of 65yrs. Mother Family Medical History: No Reported History Additional Family Medical History / Comment(s): . Medications and Allergies Home Medications Medication Instructions Recorded Confirmed Type busPIRone HCL [Buspar] 30 mg PO BID 08/23/13 08/24/16 History levETIRAcetam [Keppra] 500 mg PO BID 08/23/13 08/24/16 History Pregabalin [Lyrica] 50 mg PO BID PRN 06/10/16 08/24/16 History busPIRone HCl [Buspar] 10 mg PO BID 07/26/16 08/24/16 History HYDROcodone/APAP 7.5-325MG [[place] 1 tab PO Q4H PRN 08/06/16 08/24/16 History 7.5-325] Allergies Allergy/AdvReac Type Severity Reaction Status Date / Time Penicillins Allergy Rash/Hives Verified 08/24/16 09:34 Physical Exam Vitals: Vital Signs Temp Pulse Pulse Resp BP BP Pulse Ox 08/24/16 15:48 120 H 16 08/24/16 13:17 120 H 16 134/65 94 L 08/24/16 13:00 96.9 F L 63 18 144/101 100 08/24/16 12:04 97.5 F L 83 16 139/65 95 08/24/16 11:32 70 12 85/50 99 08/24/16 10:22 76 16 108/54 100 08/24/16 09:20 97.8 F 101 H 18 152/72 99 Intake and Output 08/24/16 08/24/16 08/24/16 06:59 14:59 22:59 Other: Weight 65.317 kg Patient Weight 08/25/16 06:59 Weight 65.317 kg Physical exam Gen. appearance oriented to self Neck is supple no JVD Lungs good air entry clear to auscultation no rhonchi or wheezing Heart S1-S2 heard regular rate and rhythm no murmurs appreciated Abdomen d distended grimaces to palpation appears to have fluid Neurologically pupils are reactive to light patient is unable to focus enough to follow accommodation or test extraocular movements no focal motor or sensory deficits noted however limited examination Skin no abnormalities appreciated Results CBC & Chem 7: 08/24/16 09:30 08/24/16 09:30 Labs: Abnormal Lab Results - Last 24 Hours (Table) 08/24/16 08/24/16 08/24/16 Range/Units 09:20 09:30 09:30 RBC 3.45 L (3.80-5.40) m/uL Hgb 9.1 L (11.4-16.0) gm/dL Hct 31.1 L (34.0-46.0) % MCHC 29.1 L (31.0-37.0) g/dL Plt Count 105 L D (150-450) k/uL Lymphocytes # 0.8 L (1.0-4.8) k/uL Chloride (98-107) mmol/L BUN (7-17) mg/dL Creatinine (0.52-1.04) mg/dL POC Glucose (mg/dL) (75-99) mg/dL Calcium (8.4-10.2) mg/dL Phosphorus (2.5-4.5) mg/dL AST (14-36) U/L Troponin I 0.342 H* (0.000-0.034) ng/mL Total Protein (6.3-8.2) g/dL Albumin (3.5-5.0) g/dL TSH (0.465-4.680) mIU/L Urine Appearance Cloudy H (Clear) Urine Protein 1+ H (Negative) Urine Ketones Trace H (Negative) Urine Blood Moderate H (Negative) Ur Leukocyte Esterase Moderate H (Negative) Urine RBC 7 H (0-5) /hpf Urine WBC 14 H (0-5) /hpf Ur Squamous Epith Cells 28 H (0-4) /hpf Urine Bacteria Occasional H (None) /hpf Urine Mucus Rare H (None) /hpf 08/24/16 08/24/16 08/24/16 Range/Units 09:30 13:28 16:25 RBC (3.80-5.40) m/uL Hgb (11.4-16.0) gm/dL Hct (34.0-46.0) % MCHC (31.0-37.0) g/dL Plt Count (150-450) k/uL Lymphocytes # (1.0-4.8) k/uL Chloride 110 H (98-107) mmol/L BUN 29 H (7-17) mg/dL Creatinine 2.26 H (0.52-1.04) mg/dL POC Glucose (mg/dL) 69 L 124 H (75-99) mg/dL Calcium 7.9 L (8.4-10.2) mg/dL Phosphorus 4.8 H (2.5-4.5) mg/dL AST 46 H (14-36) U/L Troponin I (0.000-0.034) ng/mL Total Protein 6.0 L (6.3-8.2) g/dL Albumin 2.9 L (3.5-5.0) g/dL TSH 12.500 H (0.465-4.680) mIU/L Urine Appearance (Clear) Urine Protein (Negative) Urine Ketones (Negative) Urine Blood (Negative) Ur Leukocyte Esterase (Negative) Urine RBC (0-5) /hpf Urine WBC (0-5) /hpf Ur Squamous Epith Cells (0-4) /hpf Urine Bacteria (None) /hpf Urine Mucus (None) /hpf Microbiology - Last 24 Hours (Table) 08/24/16 09:20 Urine Culture - Preliminary Urine,Voided Thrombosis Risk Factor Assmnt - Choose All That Apply Any of the Below Risk Factors Present?: Yes Each Factor Represents 1 point: Age 41-60 years, Medical pt on bed rest, Obesity (BMI >25) Other Risk Factors: Yes Each Risk Factor Represents 2 Points: Malignancy Other congenital or acquired thrombophilia - If yes, enter type in comment: No Thrombosis Risk Factor Assessment Total Risk Factor Score: 5 Thrombosis Risk Factor Assessment Level: High Risk Assessment and Plan Plan: #1 acute metabolic/toxic encephalopathy #2 ovarian cancer with metastases, stage IV #3 acute kidney injury likely prerenal #4 hypoglycemia #5 anemia of chronic disease #6 question of seizure disorder #Moderate to severe protein calorie malnutrition Plan Discussed patient's poor prognosis We'll have Dr. Jc who is her oncologist discuss care as well We'll start the patient on Keppra IV 500 twice a day continue with Decadron GI prophylaxis will be initiated DC fentanyl and morphine will patient was started on small dose of Dilaudid MRI of the brain will be obtained however we'll need to regulate renal function prior to it Prognosis extremely poor
[2016-08-24] MEDS ORDERED: DRY MOUTH SPRAY 44.3 SPRAY/44.3 ML SPRAY MUCOUS MEM PRN (18:46)
[2016-08-24] MEDS ORDERED: MORPHINE SULFATE (100 MG/2 ML) 100 MG in SODIUM CHLORIDE 0.9% 100 ML IV SCH (19:00)
--- NOTE | 2016-08-24 21:08 | P.CNNES ---
History of Present Illness Consult date: 08/24/16 Reason for Consult: Patient being evaluated for acute stroke versus metastatic disease. History of Present Illness: Neurology was consulted today on 08/24/2016 for further evaluation of Dot Chaudhari for evaluation of acute stroke versus metastatic disease. Neurology went to see the patient today in room 579 bed 1 at 9:00 pm for further neurological evaluation. Nursing staff informed Dr. Sue that the patient has been made comfort care measures with hospice consult. Neurology consultation was canceled by Dr. Erasmo Cruz. For this reason neurology has been taken off of this case and we will remove this patient off of our list. Thank you. Past Medical History Past Medical History: Cancer, Eye Disorder, Hypertension, Osteoarthritis (OA), Renal Disease, Seizure Disorder Additional Past Medical History / Comment(s): Ovarian CA with peritoneal metastasis, has had 3 paracentesis, recent attempted abdominal hysterectomy, tumor too large to remove, started chemotherapy thru port on 08/20/16-has had vomiting and AMS since, LAST SEIZURE 2015, chronic low back pain, generalized arthritis, CKD stage II, chronic anemia, glaucoma bilaterally with surgery, [place] bilaterally. History of Any Multi-Drug Resistant Organisms: None Reported Past Surgical History: Section, Tonsillectomy, Tubal Ligation Additional Past Surgical History / Comment(s): ATTEMPTED OPEN HYSTERECTOMY at [facility], 3 PARACENTESIS, buttock abcess with surgery, lasik eye surgery bilaterally for glaucoma. Past Anesthesia/Blood Transfusion Reactions: No Reported Reaction Smoking Status: Former smoker - Past Family History Father Family Medical History: CVA/TIA, Diabetes Mellitus, Hypertension Additional Family Medical History / Comment(s): Father at the age of 65yrs. Mother Family Medical History: No Reported History Additional Family Medical History / Comment(s): . Medications and Allergies Home Medications Medication Instructions Recorded Confirmed Type busPIRone HCL [Buspar] 30 mg PO BID 08/23/13 08/24/16 History levETIRAcetam [Keppra] 500 mg PO BID 08/23/13 08/24/16 History Pregabalin [Lyrica] 50 mg PO BID PRN 06/10/16 08/24/16 History busPIRone HCl [Buspar] 10 mg PO BID 07/26/16 08/24/16 History HYDROcodone/APAP 7.5-325MG [[place] 1 tab PO Q4H PRN 08/06/16 08/24/16 History 7.5-325] Allergies Allergy/AdvReac Type Severity Reaction Status Date / Time Penicillins Allergy Rash/Hives Verified 08/24/16 09:34 Physical Examination - Vital Signs Vital Signs: Vital Signs Temp Pulse Pulse Resp BP BP Pulse Ox 08/24/16 20:00 60 18 08/24/16 17:04 42 L 16 170/79 08/24/16 16:00 81 16 101/57 08/24/16 15:48 120 H 16 08/24/16 13:17 120 H 16 134/65 94 L 08/24/16 13:00 96.9 F L 63 18 144/101 100 08/24/16 12:04 97.5 F L 83 16 139/65 95 08/24/16 11:32 70 12 85/50 99 08/24/16 10:22 76 16 108/54 100 08/24/16 09:20 97.8 F 101 H 18 152/72 99 Intake and Output 08/24/16 08/24/16 08/24/16 06:59 14:59 22:59 Other: Weight 65.317 kg Patient Weight 08/25/16 06:59 Weight 65.317 kg Results - Laboratory Findings CBC and BMP: 08/24/16 09:30 08/24/16 09:30 Abnormal Lab Findings: Abnormal Labs 08/24/16 08/24/16 08/24/16 09:20 09:30 09:30 RBC 3.45 L Hgb 9.1 L Hct 31.1 L MCHC 29.1 L Plt Count 105 L D Lymphocytes # 0.8 L Chloride BUN Creatinine POC Glucose (mg/dL) Calcium Phosphorus AST Troponin I 0.342 H* Total Protein Albumin TSH Urine Appearance Cloudy H Urine Protein 1+ H Urine Ketones Trace H Urine Blood Moderate H Ur Leukocyte Esterase Moderate H Urine RBC 7 H Urine WBC 14 H Ur Squamous Epith Cells 28 H Urine Bacteria Occasional H Urine Mucus Rare H 08/24/16 08/24/16 08/24/16 09:30 13:28 16:25 RBC Hgb Hct MCHC Plt Count Lymphocytes # Chloride 110 H BUN 29 H Creatinine 2.26 H POC Glucose (mg/dL) 69 L 124 H Calcium 7.9 L Phosphorus 4.8 H AST 46 H Troponin I Total Protein 6.0 L Albumin 2.9 L TSH 12.500 H Urine Appearance Urine Protein Urine Ketones Urine Blood Ur Leukocyte Esterase Urine RBC Urine WBC Ur Squamous Epith Cells Urine Bacteria Urine Mucus
--- NOTE | 2016-08-24 21:53 | MR ---
EXAMINATION TYPE: MR brain wo con DATE OF EXAM: 08/24/2016 5:08 PM COMPARISON: 01/08/2014 HISTORY: GFR 22, Mediport, Seizures FINDINGS: The ventricles, basal cisterns and sulci overlying the cerebral convexities are mildly enlarged. There is evidence of mild periventricular white matter ischemic demyelination. Remote deep white matter insults are also noted. On diffusion weighted imaging there are scattered areas of increased signal within the bilateral cere bellum, bilateral occipital lobes right greater than left as well as right parietal occipital watersh ed again right greater than left. In addition there are scattered foci of increased signal in the sub cortical regions the high frontal lobes right greater than left. There is no evidence for midline shift or mass effect. Acute intracranial hemorrhage or extra-axial collection is not evident. The paranasal sinuses and mastoid air cells are well-aerated. IMPRESSION: 1. Findings suggest of bilateral acute embolic process. Correlate clinically and if felt indicated co nsider contrast-enhanced study to exclude metastatic disease although distinct lesion is not identifi ed with absolute certainty. 2. Age-related atrophic and chronic small vessel ischemic change.
[2016-08-24 22:13] VITALS: BP 134/84; PULSE 108; TEMP 97.9
[2016-08-25] MEDS: DEXAMETHASONE SOD PHOSPHATE 10 MG/ML 1 ML VIAL IV SCH ×2 (06:07→11:51)
[2016-08-25] MEDS: SODIUM CHLORIDE 0.9% 1,000 ML IV SCH (07:51)
[2016-08-25] MEDS: levETIRAcetam IV 500 MG in SODIUM CHLORIDE 0.9% 100 ML IVPB SCH (07:52)
[2016-08-25] MEDS: LORazepam 2 MG/ML SYRINGE IV PRN ×2 (08:33→13:25)
[2016-08-25] MEDS ORDERED: ENOXAPARIN 40 MG/0.4 ML SYRINGE SQ SCH (09:00)
[2016-08-25 11:57] VITALS: BMI 29.0
[2016-08-25 12:00] VITALS: RESP 6
--- NOTE | 2016-08-25 12:01 | CDI ---
In responding to this query, please exercise your independent professional judgment. The [facility] Coding Staff and Clinical Documentation Specialists appreciate your assistance in clarifying documentation, maintaining compliance with coding guidelines, accurately documenting patients condition and capturing severity of illness. The fact that a question is asked does not imply that any particular answer is desired or expected. Communication forms are a method of clarifying documentation and are not made part of the Legal Health Record. Thank you in advance for your clarification. Last Revision, December 2014 Dorita Vargas [address] [facility] [place] [address] Documentation Clarification Form Date: 08/25/2016 11:51:00 AM From: Yamilex Paul CCS, CCDS Admit Date: 08/24/2016 11:17:00 AM Patient Name: Dot Chaudhari Visit Number: [id number] Discharge Date: Dr. Erasmo Cruz: Patient was admitted with 3 day duration of mental status changes, recently diagnosed with ovarian cancer and is status post one chemotherapy treatment. History: Hypertension, Osteoarthritis, CKD, Seizure Disorder, Chronic anemia & Glaucoma. Clinical Indicators: Admitted initially with likely brain metastasis vs CVA with consults to Oncology & Neurology (canceled, patient is now comfort care only). Also admitted for IV hydration secondary to dehydration & steroids for brain edema. Labs: RBC 3.45, Hgb 9.1, Hct 31.1, Pl Ct 105 RAD: CT Brain: New cortical & subcortical hypodensities right occipitoparietal junction & left posterior parietal lobe. MRI Brain: Bilateral acute embolic process. Treatment: Seizure precautions, neuro assessments, IV fluid boluses x3, IV fluids, IV Ativan, IV Ms, IV Keppra, IV Decadron, IV Ms, IV Dilaudid In your professional opinion, can you please clarify the underlying cause, condition or process, if any, represented by these findings? Cytotoxic cerebral edema Vasogenic cerebral edema Traumatic cerebral edema Please include with or without loss of consciousness and duration (if known) Other cerebral edema, please specify Cerebral edema, etiology unknown Please include site if known Unable to determine Other condition, please specify Please document in your progress notes and discharge summary in order to capture severity of illness and risk of mortality. Include clinical findings that support your diagnosis. FYI: Press F11 to launch patient chart Place X here if this finding has no clinical significance, is not applicable or if you are not able to provide any additional documentation. Thank You. [place]
--- NOTE | 2016-08-26 00:14 | P.CONS ---
History of Present Illness - Reason for Consult Consult date: 08/25/16 Altered mental status, agitation - History of Present Illness Ms Chaudhari is a pleasant WF, initially seen in consult at [facility] on 07/01/16. She had presented with progressive swelling of the abdomen over the past 2 weeks, associated with increasing pain, and constipation leading to admission, on . CT of the [facility] showed ascites, probable peritoneal carcinomatosis, and a 4.2 x 3.8 cm left pelvic mass. She had a therapeutic and diagnostic paracentesis, and was discharged. 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 She was readmitted with similiar symptoms and suspicion of ileus, on 06/30/16, and seen in consult. She again improved with paracantesis. CT chest was negative. She was referred to Dr Colon, and taken to surgery on 07/30/16. Due to burden of disease ( per the pt's ) surgery was aborted, and chemotherapy to reduce disease burden, recommended. She was discharged on 08/01/16 and seen for her 1st OV on 08/04/16. The pt is s/p Port placement, and started chemo per [facility] recommendations, with D 1 of cycle 1 of Carboplatin and dose dense Taxol on 08/19/16 Per the family the pt had been more lethargic, as well as confused and agitated when awake, progressively over the past 3-4 days. She was brought to the ER where non contrast CT revealed b/l brain lesions, suspicious for metastases vs ischemia. MRI reported multiple b/l areas, s/o embolic CVA's but the study was also non contrast due to increased Cr. She was admitted for further management after d/w the ER physician, and steroids initiated. Review of Systems Constitutional: Reports fatigue, Reports lethargy, Reports poor appetite, Reports weakness Eyes: denies blurred vision, denies pain Ears: deny: decreased hearing, ear discharge, earache, tinnitus Ears, nose, mouth and throat: Denies headache, Denies sore throat Cardiovascular: Reports decreased exercise tolerance Respiratory: Reports dyspnea Gastrointestinal: Reports abdominal pain, Reports bloating, Reports loss of appetite Genitourinary: Denies dysuria, Denies hematuria Menstruation: Reports postmenopausal Musculoskeletal: Reports muscle weakness Integumentary: Denies pruritus, Denies rash Neurological: Reports change in mentation Psychiatric: Reports anxiety attacks, Reports confusion, Reports depression, Reports irritability Endocrine: Reports fatigue, Reports weight change Hematologic/Lymphatic: Reports as per HPI Past Medical History Past Medical History: Cancer, Eye Disorder, Hypertension, Osteoarthritis (OA), Renal Disease, Seizure Disorder Additional Past Medical History / Comment(s): Ovarian CA with peritoneal metastasis, has had 3 paracentesis, recent attempted abdominal hysterectomy, tumor too large to remove, started chemotherapy thru port on 08/20/16-has had vomiting and AMS since, LAST SEIZURE 2015, chronic low back pain, generalized arthritis, CKD stage II, chronic anemia, glaucoma bilaterally with surgery, [place] bilaterally. History of Any Multi-Drug Resistant Organisms: None Reported Past Surgical History: Section, Tonsillectomy, Tubal Ligation Additional Past Surgical History / Comment(s): ATTEMPTED OPEN HYSTERECTOMY at [facility], 3 PARACENTESIS, buttock abcess with surgery, lasik eye surgery bilaterally for glaucoma. Past Anesthesia/Blood Transfusion Reactions: No Reported Reaction Smoking Status: Former smoker - Past Family History Father Family Medical History: CVA/TIA, Diabetes Mellitus, Hypertension Additional Family Medical History / Comment(s): Father at the age of 65yrs. Mother Family Medical History: No Reported History Additional Family Medical History / Comment(s): . Medications and Allergies Home Medications Medication Instructions Recorded Confirmed Type busPIRone HCL [Buspar] 30 mg PO BID 08/23/13 08/25/16 History levETIRAcetam [Keppra] 500 mg PO BID 08/23/13 08/25/16 History Pregabalin [Lyrica] 50 mg PO BID PRN 06/10/16 08/25/16 History busPIRone HCl [Buspar] 10 mg PO BID 07/26/16 08/25/16 History HYDROcodone/APAP 7.5-325MG [[place] 1 tab PO Q4H PRN 08/06/16 08/25/16 History 7.5-325] Allergies Allergy/AdvReac Type Severity Reaction Status Date / Time Penicillins Allergy Rash/Hives Verified 08/24/16 09:34 Physical Exam Vitals: Vital Signs Temp Pulse Pulse Resp BP BP Pulse Ox 08/24/16 21:00 97.9 F 108 H 17 134/84 96 08/24/16 20:00 60 18 08/24/16 17:04 42 L 16 170/79 08/24/16 16:00 81 16 101/57 08/24/16 15:48 120 H 16 08/24/16 13:17 120 H 16 134/65 94 L 08/24/16 13:00 96.9 F L 63 18 144/101 100 08/24/16 12:04 97.5 F L 83 16 139/65 95 08/24/16 11:32 70 12 85/50 99 Intake and Output 08/24/16 08/25/16 08/25/16 22:59 06:59 14:59 Intake Total 142 160 12.342 Output Total 600 Balance -458 160 12.342 Intake: Intake, IV Titration 142 160 12.342 Amount Morphine Sulfate (100 mg/ 2 160 12.342 2 ml) 100 mg In Sodium Chloride 0.9% 100 ml @ 1 MG/HR 1.02 mls/hr IV . Q24H [facility] Rx#:[id number] Sodium Chloride 0.9% 1, 40 000 ml @ 100 mls/hr IV . Q10H [facility] Rx#:[id number] levETIRAcetam IV 500 mg 100 In Sodium Chloride 0.9% 100 ml @ 400 mls/hr IVPB Q12HR [facility] Rx#:[id number] Output: Urine 600 Uretheral ([place]) 600 Other: Voiding Method Indwelling Catheter - Constitutional General appearance: mild distress - EENT Eyes: EOMI, PERRLA ENT: hearing grossly normal, normal oropharynx - Neck Neck: no lymphadenopathy - Respiratory Respiratory: bilateral: CTA - Cardiovascular Rhythm: regular Heart sounds: normal: S1, S2 - Gastrointestinal General gastrointestinal: normal bowel sounds, soft - Integumentary Integumentary: normal - Neurologic Neurologic: CNII-XII intact - Musculoskeletal Musculoskeletal: generalized weakness, strength equal bilaterally - Psychiatric Confused. following some commands, markedly agitated Results CBC & Chem 7: 08/24/16 09:30 08/24/16 09:30 Labs: Abnormal Lab Results - Last 24 Hours (Table) 08/24/16 08/24/16 Range/Units 13:28 16:25 POC Glucose (mg/dL) 69 L 124 H (75-99) mg/dL Microbiology - Last 24 Hours (Table) 08/24/16 09:20 Urine Culture - Preliminary Urine,Voided Chest x-ray: report reviewed CT Scan - head: report reviewed MRI - head: report reviewed Assessment and Plan (1) Altered mental status Narrative/Plan: The cause of this is not totally definite, but is related to her brain pathology. Ct and MRI were both non contrast studies, making it difficult to distinguish for sure between multiple CVAs vs mets. The pt has no predisposing factors or source for emboli, thus mets are favored, though they are unusual at this stage from ovarian cancer. Pt has not responded to steroids. Contrast studies are not possible, due to increasing Cr Status: Acute (2) Ovarian cancer Narrative/Plan: If her [employer] findings are due to metastases, it is very unlikely that the pt would be able to tolerate whole brain RT. Her baseline performance status was borderline at best. She had started chemo, with course anticipated to quite challenging due to her PS, as well as underlying severe anxiety issues. If her presentation represents multiple CVAs , even then due to deterioration in her general condition , continuation of treatment would be expected to be very challenging. She is also developing progressive renal insufficiency. The family is considering comfort care, which is reasonable in the circumstances.In the meantime, continue IV steroids , hydration and pain control Case was extensively d/w the ER physician and the admitting service Status: Acute
--- NOTE | 2016-08-27 09:23 | CDI ---
In responding to this query, please exercise your independent professional judgment. The [facility] Coding Staff and Clinical Documentation Specialists appreciate your assistance in clarifying documentation, maintaining compliance with coding guidelines, accurately documenting patients condition and capturing severity of illness. The fact that a question is asked does not imply that any particular answer is desired or expected. Communication forms are a method of clarifying documentation and are not made part of the Legal Health Record. Thank you in advance for your clarification. Last Revision, December 2014 Dorita Vargas [address] [facility] [place] [address] Documentation Clarification Form Date: 08/25/2016 11:51:00 AM From: Yamilex Paul CCS, CCDS Admit Date: 08/24/2016 11:17:00 AM Patient Name: Dot Chaudhari Visit Number: [id number] Discharge Date: 08/25/2016 Dr. Erasmo Cruz: Patient was admitted with 3 day duration of mental status changes, recently diagnosed with ovarian cancer and is status post one chemotherapy treatment. History/Risk Factors: Hypertension, Osteoarthritis, CKD, Seizure Disorder, Chronic anemia & Glaucoma. Clinical Indicators: Admitted initially with likely brain metastasis vs CVA with consults to Oncology & Neurology (canceled, patient is now comfort care only). Also admitted for IV hydration secondary to dehydration & steroids for brain edema. Labs: RBC 3.45, Hgb 9.1, Hct 31.1, Pl Ct 105 CT Brain: New cortical & subcortical hypodensities right occipitoparietal junction & left posterior parietal lobe. MRI Brain: Bilateral acute embolic process. Treatment: Seizure precautions, neuro assessments, IV fluid boluses x3, IV fluids, IV Ativan, IV Ms, IV Keppra, IV Decadron, IV Ms, IV Dilaudid In your professional opinion, can you please clarify the underlying cause, condition or process, if any, represented by these findings? Cytotoxic cerebral edema Vasogenic cerebral edema Traumatic cerebral edema Please include with or without loss of consciousness and duration (if known) Other cerebral edema, please specify Cerebral edema, etiology unknown Please include site if known Unable to determine Other condition, please specify Please document in your progress notes and discharge summary in order to capture severity of illness and risk of mortality. Include clinical findings that support your diagnosis. FYI: Press F11 to launch patient chart Place X here if this finding has no clinical significance, is not applicable or if you are not able to provide any additional documentation. Thank You. CHESTER
== END 2016-08-25 14:20 | disposition hospice, inpatient (51) | DRG 54 ==
LOC: EC 09:10 → 5ONC 11:17 → 6SEL 11:42 → 5ONC 22:06
PROVIDERS: ADMIT Hospitalist; ATTEND Hospitalist
DX: C79.31 Secondary malignant neoplasm of brain (principal); G92 Toxic encephalopathy; G93.6 Cerebral edema; E43 Unspecified severe protein-calorie malnutrition; N17.9 Acute kidney failure, unspecified; C78.6 Secondary malignant neoplasm of retroperitoneum and peritoneum; C56.9 Malignant neoplasm of unspecified ovary; D63.8 Anemia in other chronic diseases classified elsewhere; Z66 Do not resuscitate; Z51.5 Encounter for palliative care; M19.91 Primary osteoarthritis, unspecified site; G40.909 Epilepsy, unspecified, not intractable, without status epilepticus; Z92.21 Personal history of antineoplastic chemotherapy; I12.9 Hypertensive chronic kidney disease with stage 1 through stage 4 chronic kidney disease, or unspecified chronic kidney disease; N18.2 Chronic kidney disease, stage 2 (mild); H40.9 Unspecified glaucoma; H91.90 Unspecified hearing loss, unspecified ear; E16.2 Hypoglycemia, unspecified; F41.9 Anxiety disorder, unspecified; G89.29 Other chronic pain; R19.00 Intra-abdominal and pelvic swelling, mass and lump, unspecified site; M54.5 Low back pain; Z87.891 Personal history of nicotine dependence; Z79.891 Long term (current) use of opiate analgesic; Z79.899 Other long term (current) drug therapy; Z88.0 Allergy status to penicillin
CPT/HCPCS: 36415; 70450; 70551; 72131; 80053; 81001; 82140; 82550; 82553; 83605; 83735; 84100; 84443; 84484; 85025; 85610; 85730; 87086; 93005; 96361; 96374; 96375; 99285

== ENCOUNTER 2016-08-25 14:26 | Inpatient (IN) | payer MEDICAID ==
[2016-08-25] MEDS ORDERED: ACETAMINOPHEN SUPPOSITORY 650 MG SUPP RECTAL PRN (15:21)
[2016-08-25] MEDS ORDERED: BISACODYL 10 MG SUPP RECTAL PRN (15:22)
[2016-08-25] MEDS ORDERED: PROCHLORPERAZINE 10 MG TAB PO PRN (15:23)
[2016-08-25] MEDS ORDERED: HALOPERIDOL ORAL SOLN 10 MG/5 ML CUP PO PRN (15:24)
[2016-08-25] MEDS ORDERED: ONDANSETRON 4 MG/2 ML VIAL IVP PRN (15:26)
[2016-08-25] MEDS ORDERED: LORazepam 2 MG/ML SYRINGE IV PRN (15:27)
[2016-08-25] MEDS ORDERED: ATROPINE OPHTH SOLN 1% 5ML BTL SUBLINGUAL PRN (15:37)
[2016-08-25] MEDS: MORPHINE SULFATE (100 MG/2 ML) 100 MG in SODIUM CHLORIDE 0.9% 100 ML IV SCH ×2 (16:20→21:03)
[2016-08-25] MEDS: SCOPOLAMINE 1.5MG/72HR PATCH TRANSDERM SCH (16:24)
[2016-08-25] MEDS: DEXAMETHASONE SOD PHOSPHATE 4 MG/ML 1 ML VIAL IV SCH (16:58)
--- NOTE | 2016-08-25 17:32 | P.PN ---
Subjective Principal diagnosis: Hospice H&P as well This is a 56-year-old lady that was admitted to the hospital with change in mental status 2 days Patient has a diagnosis of ovarian cancer underwent 1 treatment of chemotherapy Patient was noted to have multiple lesions on the brain if patient was noted to have some renal dysfunction hence a noncontrast MRI was done Today after goals of care were discussed in change ordered to comfort measures only over night patient appears to be not responsive is currently on 3.5 mg of morphine per hour and is requiring intermittent Ativan for comfort No other overnight reports noted her family is at bedside Objective - Vital Signs Vital signs: Intake & Output 08/24/16 08/25/16 08/25/16 18:59 06:59 18:59 Weight 65.3 kg Other: Voiding Method Indwelling Catheter - Exam Patient is lethargic Lungs diminished breath sounds no rhonchi or wheezing or crackles Heart slightly tachycardic no murmurs appreciable Abdomen is distended slightly grimaces to deep palpation Lower extremities no edema noted neuro is deferred Assessment and Plan Plan: Metastatic ovarian cancer Acute kidney injury Chronic pain syndrome Plan Complete comfort measures only patient is admitted to hospice GIP in progress All the questions were answered discuss in detail regarding patient's status with the family and the oncologist as well today
[2016-08-25] MEDS: levETIRAcetam IV 500 MG in SODIUM CHLORIDE 0.9% 100 ML IVPB SCH (20:33)
[2016-08-26] MEDS: DEXAMETHASONE SOD PHOSPHATE 4 MG/ML 1 ML VIAL IV SCH ×5 (00:20→21:48)
[2016-08-26] MEDS: levETIRAcetam IV 500 MG in SODIUM CHLORIDE 0.9% 100 ML IVPB SCH ×2 (08:19→21:48)
--- NOTE | 2016-08-26 17:45 | P.PN ---
Subjective This is a 56-year-old lady that was admitted to the hospital with change in mental status 2 days Patient has a diagnosis of ovarian cancer underwent 1 treatment of chemotherapy Patient was noted to have multiple lesions on the brain if patient was noted to have some renal dysfunction hence a noncontrast MRI was done Today after goals of care were discussed in change ordered to comfort measures only over night patient appears to be not responsive is currently on 3.5 mg of morphine per hour and is requiring intermittent Ativan for comfort No other overnight reports noted her family is at bedside 08/18/2016 Patient appears to be stable On morphine drip nonresponsive no overnight events family at bedside Objective - Vital Signs Vital signs: Vital Signs Temp Pulse Resp 3 L 08/26/16 16:00 BP Pulse Ox 94 L 08/26/16 11:40 Intake & Output 08/25/16 08/26/16 08/26/16 18:59 06:59 18:59 Intake Total 165.333 120 Output Total 550 35 850 Balance -550 130.333 -730 Weight 65.3 kg 65.3 kg Intake: IV 5 Morphine Sulfate (100 mg/ 5 2 ml) 100 mg In Sodium Chloride 0.9% 100 ml @ 5 MG/HR 5.1 mls/hr IV .Q20H [facility] Rx#:[id number] Intake, IV Titration 165.333 115 Amount Morphine Sulfate (100 mg/ 65.333 15 2 ml) 100 mg In Sodium Chloride 0.9% 100 ml @ 5 MG/HR 5.1 mls/hr IV .Q20H [facility] Rx#:[id number] levETIRAcetam IV 500 mg 100 100 In Sodium Chloride 0.9% 100 ml @ 400 mls/hr IVPB Q12HR [facility] Rx#:[id number] Output: Urine 550 35 850 Uretheral ([place]) 550 850 Other: Voiding Method Indwelling Catheter Indwelling Catheter Indwelling Catheter - Exam Patient is lethargic Lungs diminished breath sounds no rhonchi or wheezing or crackles Heart slightly tachycardic no murmurs appreciable Abdomen is distended slightly grimaces to deep palpation Lower extremities no edema noted neuro is deferred Assessment and Plan Plan: Metastatic ovarian cancer Acute kidney injury Chronic pain syndrome Plan Complete comfort measures only patient is admitted to hospice GIP in progress All the questions were answered discuss in detail regarding patient's status with the family and the oncologist as well today
[2016-08-26] MEDS: LORazepam 2 MG/ML SYRINGE IV PRN (19:46)
[2016-08-26] MEDS: MORPHINE SULFATE (100 MG/2 ML) 100 MG in SODIUM CHLORIDE 0.9% 100 ML IV SCH (19:54)
[2016-08-27] MEDS: DEXAMETHASONE SOD PHOSPHATE 4 MG/ML 1 ML VIAL IV SCH ×3 (05:45→18:26)
[2016-08-27] MEDS: levETIRAcetam IV 500 MG in SODIUM CHLORIDE 0.9% 100 ML IVPB SCH ×2 (10:25→19:16)
[2016-08-27] MEDS: MORPHINE SULFATE (100 MG/2 ML) 100 MG in SODIUM CHLORIDE 0.9% 100 ML IV SCH ×2 (10:25→22:46)
[2016-08-27] MEDS: LORazepam 2 MG/ML SYRINGE IV PRN ×2 (10:50→23:06)
--- NOTE | 2016-08-27 11:24 | CDI ---
In responding to this query, please exercise your independent professional judgment. The [facility] Coding Staff and Clinical Documentation Specialists appreciate your assistance in clarifying documentation, maintaining compliance with coding guidelines, accurately documenting patients condition and capturing severity of illness. The fact that a question is asked does not imply that any particular answer is desired or expected. Communication forms are a method of clarifying documentation and are not made part of the Legal Health Record. Thank you in advance for your clarification. Last Revision, December 2014 Dorita Vargas [address] [facility] [place] [address] Documentation Clarification Form Date: 08/27/2016 11:19:00 AM From: Yamilex Paul CCS, CCDS Admit Date: 08/25/2016 2:26:00 PM Patient Name: Dot Chaudhari Visit Number: [id number] Discharge Date: Dr. Erasmo Mccallum Cruz: 56 yo female patient presented with change in mental status, diagnosed with ovarian cancer and mets to the brain. Clinical Indicators: The patient has been made comfort measures only & is admitted to hospice care. CT/MRI Brain: Previous MRI brain: multiple lesions Treatment: IV Morphine & IV Ativan for comfort measures only. In your professional opinion, can you please clarify the specific type of encephalopathy, if known? Anoxic Encephalopathy Hypertensive Encephalopathy Metabolic Encephalopathy Toxic Encephalopathy Hepatic Encephalopathy, if indicated, please clarify: o Indicate if any complications: Coma, other disease process? o Indicate whether acute, sub-acute or chronic? o Causal Condition: Alcoholism, Hepatitis, other disease process? Other, please specify Unable to determine Please document in your progress notes and discharge summary in order to capture severity of illness and risk of mortality. Include clinical findings that support your diagnosis. FYI: Press F11 to launch patient chart. Place X here if this finding has no clinical significance, is not applicable or if you are not able to provide any additional documentation. Thank You. CHESTER
[2016-08-28] MEDS: DEXAMETHASONE SOD PHOSPHATE 4 MG/ML 1 ML VIAL IV SCH ×3 (03:38→18:08)
[2016-08-28] MEDS: levETIRAcetam IV 500 MG in SODIUM CHLORIDE 0.9% 100 ML IVPB SCH ×2 (08:34→19:32)
[2016-08-28] MEDS: MORPHINE SULFATE (100 MG/2 ML) 100 MG in SODIUM CHLORIDE 0.9% 100 ML IV SCH ×2 (10:34→20:24)
[2016-08-28] MEDS: LORazepam 2 MG/ML SYRINGE IV PRN (10:36)
[2016-08-28] MEDS: SCOPOLAMINE 1.5MG/72HR PATCH TRANSDERM SCH (16:16)
[2016-08-29] MEDS: DEXAMETHASONE SOD PHOSPHATE 4 MG/ML 1 ML VIAL IV SCH ×4 (00:10→17:14)
[2016-08-29] MEDS: MORPHINE SULFATE (100 MG/2 ML) 100 MG in SODIUM CHLORIDE 0.9% 100 ML IV SCH ×2 (07:14→17:13)
[2016-08-29] MEDS: levETIRAcetam IV 500 MG in SODIUM CHLORIDE 0.9% 100 ML IVPB SCH ×2 (09:08→20:09)
--- NOTE | 2016-08-29 10:54 | P.PN ---
Subjective This is a 56-year-old lady that was admitted to the hospital with change in mental status. Patient has a diagnosis of ovarian cancer underwent 1 treatment of chemotherapy Patient was noted to have multiple lesions on the brain if patient was noted to have some renal dysfunction hence a noncontrast MRI was done 08/29/2016 Patient appears to be comfortable On morphine drip nonresponsive no overnight events family at bedside Objective - Vital Signs Vital signs: Vital Signs Temp Pulse Resp 6 L 08/29/16 00:00 BP Pulse Ox 94 L 08/27/16 16:51 Intake & Output 08/28/16 08/29/16 08/29/16 18:59 06:59 18:59 Intake Total 176.288 282.30 Output Total 35 Balance 176.288 247.30 Intake: IV 80 80 Morphine Sulfate (100 mg/ 80 80 2 ml) 100 mg In Sodium Chloride 0.9% 100 ml @ 5 MG/HR 5.1 mls/hr IV .Q20H [facility] Rx#:[id number] Intake, IV Titration 96.288 202.30 Amount Morphine Sulfate (100 mg/ 96.288 202.30 2 ml) 100 mg In Sodium Chloride 0.9% 100 ml @ 5 MG/HR 5.1 mls/hr IV .Q20H [facility] Rx#:[id number] Output: Urine 35 Other: Voiding Method Indwelling Catheter Indwelling Catheter Indwelling Catheter # Voids 0 - Exam Patient is lethargic Lungs diminished breath sounds no rhonchi or wheezing or crackles Heart slightly tachycardic no murmurs appreciable Abdomen is distended slightly grimaces to deep palpation Lower extremities no edema noted neuro is deferred Assessment and Plan Plan: Metastatic ovarian cancer Acute kidney injury Chronic pain syndrome Plan Complete comfort measures only patient is admitted to hospice GIP in progress
--- NOTE | 2016-08-29 10:56 | P.PN ---
Progress Note - Text This is a 56-year-old lady that was admitted to the hospital with change in mental status. Patient has a diagnosis of ovarian cancer underwent 1 treatment of chemotherapy Patient was noted to have multiple lesions on the brain if patient was noted to have some renal dysfunction hence a noncontrast MRI was done 08/28/2016 Patient appears to be comfortable On morphine drip nonresponsive no overnight events family at bedside Objective - Vital Signs Vital signs: Vital Signs Temp Pulse Resp 6 L 08/29/16 00:00 BP Pulse Ox 94 L 08/27/16 16:51 Intake & Output 08/28/16 08/29/16 08/29/16 18:59 06:59 18:59 Intake Total 176.288 282.30 Output Total 35 Balance 176.288 247.30 Intake: IV 80 80 Morphine Sulfate (100 mg/ 80 80 2 ml) 100 mg In Sodium Chloride 0.9% 100 ml @ 5 MG/HR 5.1 mls/hr IV .Q20H [facility] Rx#:[id number] Intake, IV Titration 96.288 202.30 Amount Morphine Sulfate (100 mg/ 96.288 202.30 2 ml) 100 mg In Sodium Chloride 0.9% 100 ml @ 5 MG/HR 5.1 mls/hr IV .Q20H [facility] Rx#:[id number] Output: Urine 35 Other: Voiding Method Indwelling Catheter Indwelling Catheter Indwelling Catheter # Voids 0 - Exam Patient is lethargic Lungs diminished breath sounds no rhonchi or wheezing or crackles Heart slightly tachycardic no murmurs appreciable Abdomen is distended slightly grimaces to deep palpation Lower extremities no edema noted neuro is deferred Assessment and Plan Plan: Metastatic ovarian cancer Acute kidney injury
[2016-08-29] MEDS: LORazepam 2 MG/ML SYRINGE IV PRN (11:47)
[2016-08-30] MEDS: DEXAMETHASONE SOD PHOSPHATE 4 MG/ML 1 ML VIAL IV SCH ×4 (00:23→18:17)
[2016-08-30] MEDS: MORPHINE SULFATE (100 MG/2 ML) 100 MG in SODIUM CHLORIDE 0.9% 100 ML IV SCH ×3 (01:23→20:00)
[2016-08-30] MEDS: levETIRAcetam IV 500 MG in SODIUM CHLORIDE 0.9% 100 ML IVPB SCH ×2 (08:17→21:44)
--- NOTE | 2016-08-30 10:20 | PN ---
Patient is ( ). Patient is comfortable, lying in bed and patient is awake and arousable. PHYSICAL EXAM: Vitals are irrelevant at this point of time, although please refer to nursing documentation for further details. Patient is comfortable without any pain and patient is not in respiratory distress. FINAL DIAGNOSIS: 1. Metastatic ovarian cancer. 2. Acute kidney injury. 3. Chronic ( ). 4. Patient is on hospice and patient is on IV morphine drip presently. MTDD
[2016-08-30] MEDS: ATROPINE OPHTH SOLN 1% 5ML BTL SUBLINGUAL SCH ×4 (11:32→23:58)
[2016-08-30] MEDS: LORazepam 2 MG/ML SYRINGE IV PRN (13:29)
--- NOTE | 2016-08-30 14:14 | P.PN ---
Subjective Principal diagnosis: This is a 56-year-old lady that was admitted to the hospital with change in mental status. Patient has a diagnosis of ovarian cancer underwent 1 treatment of chemotherapy Patient was noted to have multiple lesions on the brain if patient was noted to have some renal dysfunction hence a noncontrast MRI was done Patient appears to be comfortable On morphine drip nonresponsive no overnight events family at bedside Objective - Vital Signs Vital signs: Vital Signs Temp Pulse Resp 6 L 08/29/16 00:00 BP Pulse Ox 94 L 08/27/16 16:51 Intake & Output 08/28/16 08/29/16 08/29/16 18:59 06:59 18:59 Intake Total 176.288 282.30 Output Total 35 Balance 176.288 247.30 Intake: IV 80 80 Morphine Sulfate (100 mg/ 80 80 2 ml) 100 mg In Sodium Chloride 0.9% 100 ml @ 5 MG/HR 5.1 mls/hr IV .Q20H [facility] Rx#:[id number] Intake, IV Titration 96.288 202.30 Amount Morphine Sulfate (100 mg/ 96.288 202.30 2 ml) 100 mg In Sodium Chloride 0.9% 100 ml @ 5 MG/HR 5.1 mls/hr IV .Q20H [facility] Rx#:[id number] Output: Urine 35 Other: Voiding Method Indwelling Catheter Indwelling Catheter Indwelling Catheter # Voids 0 - Exam Patient is lethargic Lungs diminished breath sounds no rhonchi or wheezing or crackles Heart slightly tachycardic no murmurs appreciable Abdomen is distended slightly grimaces to deep palpation Lower extremities no edema noted neuro is deferred Assessment and Plan Plan: Metastatic ovarian cancer Acute kidney injury Toxic metabolic encephalopathy Patient is presently comfort care. Objective - Vital Signs Vital signs: Vital Signs Temp Pulse Resp 6 L 08/30/16 00:00 BP Pulse Ox 94 L 08/27/16 16:51 Intake & Output 08/29/16 08/30/16 08/30/16 18:59 06:59 18:59 Intake Total 190 124.63 209.635 Output Total 1150 Balance 190 -1025.37 209.635 Intake: IV 88 33 88 Morphine Sulfate (100 mg/ 88 33 88 2 ml) 100 mg In Sodium Chloride 0.9% 100 ml @ 5 MG/HR 5.1 mls/hr IV .Q20H [facility] Rx#:[id number] Intake, IV Titration 102 91.63 121.635 Amount Morphine Sulfate (100 mg/ 102 91.63 121.635 2 ml) 100 mg In Sodium Chloride 0.9% 100 ml @ 5 MG/HR 5.1 mls/hr IV .Q20H [facility] Rx#:[id number] Output: Urine 1150 Other: Voiding Method Indwelling Catheter Indwelling Catheter Indwelling Catheter # Voids 0 0
[2016-08-31] MEDS: DEXAMETHASONE SOD PHOSPHATE 4 MG/ML 1 ML VIAL IV SCH ×5 (03:01→20:16)
[2016-08-31] MEDS: ATROPINE OPHTH SOLN 1% 5ML BTL SUBLINGUAL SCH ×5 (05:15→20:14)
[2016-08-31] MEDS: LORazepam 2 MG/ML SYRINGE IV PRN (05:40)
[2016-08-31] MEDS: levETIRAcetam IV 500 MG in SODIUM CHLORIDE 0.9% 100 ML IVPB SCH ×2 (07:55→20:15)
[2016-08-31] MEDS ORDERED: SCOPOLAMINE 1.5MG/72HR PATCH TRANSDERM SCH (12:00)
[2016-08-31] MEDS ORDERED: ATROPINE OPHTH SOLN 1% 5ML BTL SUBLINGUAL PRN (12:29)
[2016-08-31] MEDS: MORPHINE SULFATE (100 MG/2 ML) 100 MG in SODIUM CHLORIDE 0.9% 100 ML IV SCH ×2 (12:39→21:02)
--- NOTE | 2016-08-31 14:04 | P.PN ---
Progress Note - Text Subjective Principal diagnosis: This is a 56-year-old lady that was admitted to the hospital with change in mental status. Patient has a diagnosis of ovarian cancer underwent 1 treatment of chemotherapy Patient was noted to have multiple lesions on the brain if patient was noted to have some renal dysfunction hence a noncontrast MRI was done Patient appears to be comfortable On morphine drip nonresponsive no overnight events family at bedside Objective - Vital Signs Vital signs: Vital Signs Temp Pulse Resp 6 L 08/29/16 00:00 BP Pulse Ox 94 L 08/27/16 16:51 Intake & Output 08/28/16 08/29/16 08/29/16 18:59 06:59 18:59 Intake Total 176.288 282.30 Output Total 35 Balance 176.288 247.30 Intake: IV 80 80 Morphine Sulfate (100 mg/ 80 80 2 ml) 100 mg In Sodium Chloride 0.9% 100 ml @ 5 MG/HR 5.1 mls/hr IV .Q20H [facility] Rx#:[id number] Intake, IV Titration 96.288 202.30 Amount Morphine Sulfate (100 mg/ 96.288 202.30 2 ml) 100 mg In Sodium Chloride 0.9% 100 ml @ 5 MG/HR 5.1 mls/hr IV .Q20H [facility] Rx#:[id number] Output: Urine 35 Other: Voiding Method Indwelling Catheter Indwelling Catheter Indwelling Catheter # Voids 0 - Exam Patient is lethargic Lungs diminished breath sounds no rhonchi or wheezing or crackles Patient is comfortable without any pain or respiratory distress Lower extremities no edema noted neuro is deferred Assessment and Plan Plan: Metastatic ovarian cancer Acute kidney injury
[2016-08-31] MEDS: SCOPOLAMINE 1.5MG/72HR PATCH TRANSDERM SCH (15:21)
[2016-09-01 00:14] VITALS: RESP 12
[2016-09-01] MEDS: ATROPINE OPHTH SOLN 1% 5ML BTL SUBLINGUAL SCH ×2 (00:50→06:05)
[2016-09-01] MEDS: MORPHINE SULFATE (100 MG/2 ML) 100 MG in SODIUM CHLORIDE 0.9% 100 ML IV SCH (06:05)
[2016-09-01] MEDS: LORazepam 2 MG/ML SYRINGE IV PRN (06:05)
[2016-09-01] MEDS: DEXAMETHASONE SOD PHOSPHATE 4 MG/ML 1 ML VIAL IV SCH (06:07)
== END 2016-09-01 10:35 | disposition expired | DRG 54 ==
LOC: 5ONC 14:26
PROVIDERS: ADMIT Hospitalist; ATTEND Hospitalist
DX: C79.31 Secondary malignant neoplasm of brain (principal); G92 Toxic encephalopathy; N17.9 Acute kidney failure, unspecified; C56.9 Malignant neoplasm of unspecified ovary; G89.4 Chronic pain syndrome; Z51.5 Encounter for palliative care; Z66 Do not resuscitate; Z92.21 Personal history of antineoplastic chemotherapy
CPT/HCPCS: 94760